=== PATIENT | female | born 1955 | race Caucasian/White ===

== ENCOUNTER 2019-03-24 01:00 | Inpatient (IN) ==
[2019-03-24] MEDS ORDERED: oxyCODONE HCL 5 MG TABLET PO PRN (01:30)
[2019-03-24] MEDS ORDERED: VANCOMYCIN 1,000 MG in 0.9 % SODIUM CHLORIDE 250 ML IV ONE (01:32)
[2019-03-24] MEDS ORDERED: VANCOMYCIN PER PHARMACY IV ONE (01:32)
[2019-03-24] MEDS ORDERED: SODIUM POLYSTYRENE SULFONATE 15 GM/60 ML SUSPENSION PO ONE (01:34)
[2019-03-24] MEDS ORDERED: ONDANSETRON 4 MG/2 ML VIAL IV PRN (01:37)
[2019-03-24] MEDS ORDERED: PROMETHAZINE 25 MG/ML VIAL IV PRN (01:37)
[2019-03-24] MEDS ORDERED: NITROGLYCERIN/D5W 25 MG/250 ML BOTTLE IV SCH (01:45)
--- NOTE | 2019-03-24 01:46 | Internal Med History&Physical ---
Medical - H&P: HPI Patient information: Note initiated : 03/24/19 at 1:41 am Service Date, if different from initiated Date: [] Patient: Shyann Ludwig a 64 y/o F admitted on 03/24/19 for respiratory distress. Chief Complaint: [] History of present illness: Ms. Ludwig is a 64 year old F with history of HIV AIDS, end-stage renal disease follows with Dr. Pineda, COPD presents to the emergency room today at [facility] for evaluation of shortness of breath. At the time of presentation she was in acute respiratory distress. The patient notes that she was at her baseline status until yesterday, in the afternoon she started to develop shortness of breath, she used her inhalers as well as Advair without any improvement since her breathing was getting worse she went to the emergency room for further evaluation. The patient has cough but unable to characterize sputum, denies any fever chills does have some chronic headache. She denies any chest pain does have shortness of breath denies any palpitations dizziness, does have some nausea feels like she is going to throw up, does have chronic abdominal pain intermittent, the patient denies any diarrhea, she still makes urine, she has generalized aches and pains all over body from fibromyalgia. The patient has history of HIV AIDS follows with Fuentes Reyes, last CD4 count October 2018 was 520, CD4 percentage was 45% She has a history of COPD and has required intubations in the past. The patient has history of end-stage renal disease and follows with Dr. Pineda. On presenting to the emergency room the patient was in respiratory distress, she was given bronchodilators magnesium and placed on BiPAP, it was noted that the patient chest x-ray showed she had pneumonia, her blood pressure was also very high to 220/140 as per the ED provider and the patient was started on nitroglycerin drip. The patient had hemodialysis day before yesterday and is scheduled for hemodialysis today. Her schedule is Wednesday. Labs show WBC count of 8.3 91.8% neutrophils, hemoglobin 9.1 sodium 126 potassium 5.3 bicarbonate 19 creatinine 5.2 BUN 53 glucose 119 troponin is 0.01, venous blood gas shows pH of 7.34 PCO2 45 Chest x-ray not available for viewing official report is not available Given the fact that [facility] does not have dialysis patient is being admitted to the ICU in this hospital given that she needs BiPAP therapy as well as is on a nitroglycerin drip. All systems: reviewed and no additional remarkable complaints except as stated (as per HPI rest negative) Medical - H&P: PMH Medical history: HIV COPD Hypertension Seizure disorder History of press syndrome Fibromyalgia and chronic pain syndrome Hyperlipidemia Surgical history: Gastric bypass Family history: reviewed and not pertinent Social history: Smokes electronic cigarette on a daily basis Smokes marijuana on a daily basis Denies any other drug use or substance use Medical - H&P: Meds Home Medications Medication Instructions Recorded Confirmed Type HYDROcodone/APAP 5/325MG [[place] 1 tab PO Q4HP PRN #8 tab 04/24/18 Rx 5-325Mg] Potassium Chloride [Kdur] 10 meq PO QAMCC #5 tab 04/24/18 Rx Promethazine [Phenergan] 12.5 mg PO Q4-6HP PRN #10 tab 04/24/18 Rx Allergies Allergy/AdvReac Type Severity Reaction Status Date / Time ketorolac [From Toradol] Allergy Intermediate Itching Verified 12/18/18 11:33 Penicillins Allergy Intermediate Itching Verified 12/18/18 11:33 Medical - H&P: Exam - Constitutional Exam: GENERAL: The patient is a well-developed, well-nourished in no apparent distress. Is alert and oriented x3. on bipap VITAL SIGNS: Reviewed and as noted elsewhere. HEENT: Head is normocephalic and atraumatic. Extraocular muscles are intact. Pupils are equal, round, and reactive to light. Nares appeared normal. Mouth appears any without lesions. Mucous membranes are dry. NECK: Normal to inspection, Supple, No lymphadenopathy or thyromegaly. LUNGS: Air entry equal on both sides, no wheezing, left basilar rales and left basilar rhonchi noted, No accessory muscles of respiration HEART: Regular rate and rhythm normal, S1 and S2 heard, no Gallop, S3 or Rub Noted, No Gross murmur heard. ABDOMEN: Soft, nontender, and nondistended. Positive bowel sounds. No hepatosplenomegaly was noted. EXTREMITIES: No cyanosis, clubbing, rash, lesions or edema. NEUROLOGIC: Cranial nerves II through XII are grossly intact. Motor and Sensory System Grossly Intact PSYCHIATRIC: Normal affect, Normal Mood. Appropriate Behavior. SKIN: No ulceration or wounds noted, No jaundice, No rash noted. Medical - H&P: A/P - Narrative A/P Narrative: A/P Acute hypoxic respiratory failure -Needs Non invasive ventilation, doing well -monitor, intubate if clinical condition worsens Acute exacerbation of COPD -IV steroids, duonebs and bipap -antibiotics/zithromax Pneumonia, HCAP -IV cefepime, vancomycin and zithromax -cultures sent in ER -send sputum culture and pcp culture, check mycoplasma, legionella, strep antigen Hypertensive Emergency, H/ O PRESS syndrome -IV NTG drip, goal bp < 180/105. -Resume home meds once verified -wean off the GGT HIV /AIDS -On HAART< Last CD4 was 520 -Consult ID physician -Resume home medications once verified ESRD -on HD< MWF, with Dr Pineda, Right IJ Tunnled cath -[facility] HD tomorrow, will consult Dr Pineda in AM Hyponatremia -due to infection? ESRd, should improve with HD Hyperkalemia -ESRD status -give kayexalate x 1, -HD in AM Chronic Pain -Resume home medications, once verified, seems to be on high dose of narcotis based on her reporting. Anemia -Hb 9.1, likely of chr disease DVT hep sq Diet Renal Full code Spent > 90 mins rendering critical care, management of non invasive vent, review blood gases, chart review and care coordination.
[2019-03-24] MEDS ORDERED: SODIUM POLYSTYRENE SULFONATE 15 GM/60 ML SUSPENSION ONE (02:13)
[2019-03-24] MEDS ORDERED: ONDANSETRON 4 MG/2 ML VIAL ONE (02:19)
[2019-03-24] MEDS ORDERED: HYDROmorphone 2 MG/ML VIAL ONE (02:19)
[2019-03-24] MEDS ORDERED: PANTOPRAZOLE 40 MG VIAL IV ONE (02:28)
[2019-03-24] MEDS: PANTOPRAZOLE 40 MG VIAL IV SCH ×2 (03:15→06:47)
[2019-03-24] MEDS ORDERED: NITROGLYCERIN/D5W 250 ML IV ONE (04:36)
[2019-03-24] MEDS: 0.9 % SODIUM CHLORIDE 250 ML IV SCH ×2 (04:38→14:20)
[2019-03-24] MEDS: IPRATROPIUM/ALBUTEROL 3 ML AMPUL.NEB NEB SCH ×6 (04:53→22:09)
[2019-03-24] MEDS: levETIRAcetam 500 MG in 0.9 % SODIUM CHLORIDE 100 ML IV SCH ×2 (05:12→11:14)
[2019-03-24] MEDS: 0.9 % SODIUM CHLORIDE 10 ML SYRINGE IV SCH ×3 (05:13→22:07)
[2019-03-24 05:37] LABS: Basophils # (Auto) 0 K/mcL (0.0-0.3); Basophils % (Auto) 0.1 % (0.0-2.0); Eosinophils # (Auto) 0 K/mcL (0.0-0.7); Eosinophils % (Auto) 0 % (0.0-7.0); Granulocytes % (Auto) 95.6 % (38.0-78.0); Hematocrit 25.6 % (36.0-48.0); Hemoglobin 8.5 g/dL (12.0-15.0); Lymphocytes # (Auto) 0.3 K/mcL (1.5-4.8); Lymphocytes % (Auto) 3.4 % (15.5-49.0); Mean Cell Volume 98.7 fL (80.0-100.0); Mean Corpuscular HGB Conc 33.2 g/dL (31.0-36.0); Mean Platelet Volume 7.4 fL (7.4-10.4); Monocytes # (Auto) 0.1 K/mcL (0.1-0.9); Monocytes % (Auto) 0.9 % (1.0-12.0); Platelet Count 169 K/mcL (140-440); RBC 2.59 M/mcL (4.00-5.20); Red Cell Distribution Width 14.5 % (11.5-14.5); WBC 8.3 K/mcL (4.5-11.0)
[2019-03-24] MEDS ORDERED: methylPREDNISolone SOD SUCC 125 MG/2 ML VIAL IV SCH (06:00)
[2019-03-24 06:08] LABS: ALT/SGPT 30 U/l (0-40); AST/SGOT 26 U/l (0-37); Albumin 4.3 gm/dL (3.2-5.2); Albumin/Globulin Ratio 1.6 (1.0-2.3); Alkaline Phosphatase 86 U/L (39-117); Bilirubin,Direct < 0.2 mg/dL (0.0-0.3); Bilirubin,Total 0.3 mg/dL (0.0-1.0); Blood Urea Nitrogen 57 mg/dl (8-23); Calcium 8.1 mg/dl (8.6-10.4); Carbon Dioxide 18 mmol/L (22-30); Chloride 87 mmol/L (96-108); Globulin 2.7 gm/dL (2.2-3.7); Glomerular Filtration Rate 8; Glucose 127 mg/dL (70-105); Lactate Dehydrogenase 304 U/L (94-250); Magnesium 2.6 mg/dL (1.6-2.5); Phosphorous 8.8 mg/dL (2.7-4.5); Sodium 129 mmol/L (133-145); Triglycerides 107 mg/dl (<150); Uric Acid 3.2 mg/dL (2.5-8.0)
--- NOTE | 2019-03-24 06:25 | XRay Report ---
CLINICAL INFORMATION: pneumonia, copd COMPARISON: 08/17/2018 and 12/10/2015 FINDINGS: Right IJ double-lumen catheter tip seen near the tricuspid valve plane in stable position. The heart is mildly enlarged but unchanged. Mediastinum is unremarkable. Pulmonary vessels are obscured by airspace disease but appear to be at least, moderately congested compared to the baseline study 12/10/2015. Large perihilar alveolar airspace disease is developed with moderate interstitial disease throughout the remaining lungs well likely represents edema. Small right pleural effusion noted IMPRESSION: Probable moderate/severe CHF. Pulmonary vasculature is obscured by airspace disease and difficult to assess. Please correlate with other clinical information supportive or refutive of CHF. The possibility of ARDS or aspiration should be entertained Interpreted and Authenticated by: Rene Padilla 03/24/19
[2019-03-24] MEDS ORDERED: VANCOMYCIN PER PHARMACY IV SCH (06:30)
[2019-03-24] MEDS ORDERED: hydrALAZINE 20 MG/ML VIAL IV ONE (08:23)
[2019-03-24] MEDS ORDERED: cloNIDine HCL 0.1 MG TABLET ONE (08:28)
[2019-03-24] MEDS ORDERED: hydrALAZINE 20 MG/ML VIAL ONE (08:28)
[2019-03-24] MEDS ORDERED: cloNIDine HCL 0.1 MG TABLET PO SCH ×2 (08:30)
[2019-03-24] MEDS ORDERED: amLODIPine 10 MG TABLET PO SCH (09:00)
[2019-03-24] MEDS ORDERED: IOPAMIDOL 100 ML BOTTLE IV ONE (09:42)
[2019-03-24] MEDS ORDERED: tiZANidine 4 MG TABLET PO PRN (10:47)
[2019-03-24] MEDS ORDERED: hydrOXYzine 25 MG TABLET PO PRN (10:47)
[2019-03-24] MEDS ORDERED: EMTRIVA PO SCH (11:00)
[2019-03-24] MEDS: HEPARIN 5,000 UNIT/ML VIAL SQ SCH ×2 (11:12→20:30)
[2019-03-24] MEDS: ACETAMINOPHEN 500 MG TABLET PO SCH ×3 (11:14→20:33)
[2019-03-24] MEDS ORDERED: NALOXONE HCL 0.4 MG/ML VIAL IV PRN (11:16)
[2019-03-24] MEDS: amLODIPine 10 MG TABLET PO SCH (11:40)
[2019-03-24] MEDS: AZITHROMYCIN 250 MG TABLET PO SCH (11:40)
[2019-03-24] MEDS: CARVEDILOL 12.5 MG TABLET PO SCH ×2 (11:40→20:33)
[2019-03-24] MEDS: DULoxetine 30 MG CAPSULE PO SCH (11:40)
[2019-03-24] MEDS: CALCIUM ACETATE 667 MG CAPSULE PO SCH ×2 (12:20→17:38)
[2019-03-24] MEDS ORDERED: CEFEPIME 1 GM VIAL IV SCH (14:00)
--- NOTE | 2019-03-24 14:07 | Cat Scan Report ---
CLINICAL INFORMATION: End-stage renal failure on dialysis. HIV positive. Abdominal pain and respiratory distress COMPARISON: None. TECHNIQUE: Enteric contrast was utilized. 80 cc of Isovue-300 were injected intravenously, and 50 seconds later 2.5 mm helical slices were obtained from the lung apices through the subtrochanteric regions of the femurs. Following reconstruction, 2.5 mm sagittal, coronal and axial reformatted images were processed and reviewed at multiple windows and levels. 7 mm MIP reconstructions were obtained through the lungs to optimize nodule detection.The exam was performed using radiation dose optimization techniques including, but not limited to, automated exposure control, adjustment of the mA and/or kV according to patient size and use of iterative reconstruction technique. FINDINGS: Pulmonary parenchymal windows demonstrate moderate consolidated infiltrate in the right perihilar region involving the posterior segment of the right upper lobe. There are multiple moderate groundglass infiltrates throughout both lungs with a central distribution. In addition, there is moderate thickening of the interlobular septa. The pulmonary arteries also appear mildly distended. Findings are most compatible with congestive heart failure or volume overload. Small bilateral pleural effusions appreciated. There is an 8 mm nodule in the lateral basilar segment of the the left lower lobe (image 73 Mediastinal windows show the heart is borderline enlarged with scattered calcific plaque in the coronary arteries. The thoracic aorta is unremarkable. There is no adenopathy in the mediastinal hilar or axillary region. The esophagus is normal. Abdominal images show the gallbladder is moderately enlarged and no evidence of wall thickening or stone. The liver is inhomogeneous, but shows no focal abnormality. Spleen, both adrenal glands and pancreas are normal. Both kidneys are markedly atrophic compatible with endstage renal disease. A 2.2 cm stone is present in the proximal left ureter and there are multiple smaller nonobstructing stones in the calyces of both kidneys ranging up to 8 mm. There is a small amount of ascites and modest amount of edema seen throughout the mesentery/retroperitoneal fat and the subcutaneous chest abdomen and pelvis. The stomach, small large bowel are symmetrically dilated compatible with mild ileus. There is a large amount of colonic stool. No free air or adenopathy. Urinary bladder is unremarkable. Bone windows show. There are no osseous abnormalities throughout the chest abdomen or pelvis IMPRESSION: 1. Moderate alveolar airspace disease centrally distributed with septal thickening, small bilateral pleural effusions and enlarged pulmonary arteries all supportive for congestive heart failure or volume overload. There is also edema throughout the mesentery, retroperitoneal and the subcutaneous region of the chest, abdomen and pelvis. 2. Marked bilateral renal atrophy compatible with end-stage renal failure. Multiple nonobstructing stones are seen within the calyces of both kidneys. A 2 cm stone in the proximal left ureter. No hydronephrosis. A normal amount of urine present within the urinary bladder would imply significant residual renal function. 3. Mild ileus with a large amount of stool within the colon 4. 8 mm nodule lateral right basilar segment of the left lower lobe. Consider one-year follow-up chest CT Interpreted and Authenticated by: Rene Padilla 03/24/19
--- NOTE | 2019-03-24 15:35 | Nephrology Progress Note ---
Subjective Patient information: Note initiated : 03/24/19 at 3:33 pm Service Date, if different from initiated Date: [] Patient: Shyann Ludwig 64 y/o F admitted on 03/24/19 for respiratory distress. Chief Complaint: [] Admitted with shortness of breath and possible pneumonia. Objective - Vital Signs Vital signs: Vital Signs Temp Pulse Resp BP Pulse Ox 03/24/19 15:20 98.5 F 79 142/94 03/24/19 15:05 83 119/99 03/24/19 14:50 78 125/111 03/24/19 14:35 78 124/102 03/24/19 14:20 79 137/92 03/24/19 14:17 18 122/103 03/24/19 14:05 77 122/103 03/24/19 14:02 17 126/100 03/24/19 13:50 78 126/100 03/24/19 13:46 18 143/87 03/24/19 13:44 18 138/92 03/24/19 13:40 75 138/92 03/24/19 13:33 17 146/97 03/24/19 13:29 17 140/101 03/24/19 13:16 17 174/92 03/24/19 13:10 77 174/92 03/24/19 13:02 16 162/93 03/24/19 12:56 76 162/93 03/24/19 12:49 20 146/93 03/24/19 12:46 18 132/99 03/24/19 12:44 78 146/93 03/24/19 12:35 17 120/93 03/24/19 12:33 25 H 159/130 03/24/19 12:28 78 120/93 03/24/19 12:22 16 158/97 03/24/19 12:17 18 139/85 03/24/19 12:15 80 158/97 03/24/19 12:10 20 130/117 03/24/19 12:07 81 130/117 03/24/19 12:02 37 H 03/24/19 12:01 99 F 18 160/129 03/24/19 11:57 19 130/56 03/24/19 11:50 99 F 104 H 130/56 03/24/19 11:17 22 147/132 03/24/19 11:01 20 135/98 03/24/19 11:00 79 122/103 03/24/19 10:50 17 03/24/19 10:48 22 117/99 03/24/19 10:42 82 16 03/24/19 10:32 18 102/91 03/24/19 10:16 17 153/101 03/24/19 09:55 17 141/99 03/24/19 08:56 24 H 03/24/19 08:47 18 171/161 03/24/19 08:32 17 175/158 03/24/19 08:24 22 170/139 03/24/19 08:16 20 154/136 03/24/19 08:02 87 27 H 180/119 91 03/24/19 08:00 94 03/24/19 07:46 75 18 166/144 89 L 03/24/19 07:31 77 22 169/139 98 03/24/19 07:16 88 25 H 175/133 97 03/24/19 07:05 73 18 03/24/19 07:02 76 18 147/117 91 03/24/19 06:46 13 159/142 03/24/19 06:33 14 180/141 03/24/19 06:16 181/127 03/24/19 06:00 152/115 03/24/19 05:47 23 H 172/113 03/24/19 05:35 19 145/111 03/24/19 05:34 18 03/24/19 05:15 14 167/139 03/24/19 05:01 16 151/117 03/24/19 04:48 81 25 H 95 03/24/19 04:46 19 136/63 03/24/19 04:30 20 179/133 03/24/19 04:15 69 188/113 99 03/24/19 04:03 73 25 H 183/134 94 03/24/19 04:00 15 191/145 03/24/19 03:46 198/164 03/24/19 03:36 20 188/152 03/24/19 03:31 14 225/111 03/24/19 03:15 24 H 210/103 03/24/19 03:01 65 16 198/97 91 03/24/19 02:56 17 201/113 03/24/19 02:31 21 203/107 03/24/19 02:16 20 193/108 03/24/19 02:00 18 189/110 03/24/19 01:46 14 169/96 03/24/19 01:30 72 20 188/97 86 L 03/24/19 01:25 85 24 H 178/105 88 L 03/24/19 01:00 97.3 F 71 19 171/116 100 Intake and Output 03/24/19 03/24/19 03/24/19 05:59 13:59 21:59 Intake Total 258 505 Balance 258 505 Intake: IV 18 105 NITROGLYCERIN/D5W 25 mg In 250 18 ml @ 5 MCG/MIN 3 mls/hr IV . Q24H MARGE Rx#:[id number] Keppra 500 mg In Sodium 105 Chloride 0.9% 100 ml @ 200 mls/ hr IV Q12 MARGE Rx#:[id number] Oral 240 400 Other: Meal Breakfast Percent of Meal Consumed Refused Weight 107 lb 1.6 oz Intake & Output: Intake & Output 03/24/19 03/24/19 03/24/19 05:59 13:59 21:59 Intake Total 258 505 Balance 258 505 Weight 107 lb 1.6 oz Intake: IV 18 105 NITROGLYCERIN/D5W 25 mg In 250 18 ml @ 5 MCG/MIN 3 mls/hr IV . Q24H MARGE Rx#:[id number] Keppra 500 mg In Sodium 105 Chloride 0.9% 100 ml @ 200 mls/ hr IV Q12 MARGE Rx#:[id number] Oral 240 400 Other: Meal Breakfast Percent of Meal Consumed Refused - General Appearance General appearance: cachectic EENT: ATNC Neck: JVD Respiratory: no kyphosis Cardiology: holosystolic murmur Gastrointestinal: hypoactive bowel sounds Neurologic: no focal deficit - Lab 03/24/19 03:07 03/24/19 03:07 Most recent lab results Calcium 8.1 mg/dl (8.6-10.4) L 03/24/19 03:07 Phosphorus 8.8 mg/dL (2.7-4.5) H* 03/24/19 03:07 Magnesium 2.6 mg/dL (1.6-2.5) H 03/24/19 03:07 Assessment and Plan (1) End stage renal disease on dialysis Status: Acute - Narrative A/P Narrative: Admitted with possible pneumonia and volume overload. Will dialyse and remove 4 kilos of fluid today. Will try again tomorrow and try another 3000ml.
[2019-03-24] MEDS: oxyCODONE HCL 5 MG TABLET PO PRN ×2 (16:02→20:35)
[2019-03-24] MEDS: cloNIDine HCL 0.1 MG TABLET PO SCH ×2 (16:02→20:32)
[2019-03-24 17:02] LABS: Vancomycin,Random 8.3 ug/mL
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
[2019-03-24] MEDS: HYDROmorphone 2 MG/ML VIAL IV PRN (18:30)
[2019-03-24] MEDS ORDERED: hydrALAZINE 20 MG/ML VIAL IV PRN (19:33)
[2019-03-24] MEDS: levETIRAcetam 500 MG TABLET PO SCH (20:30)
[2019-03-24] MEDS ORDERED: AMITRIPTYLINE 25 MG TABLET PO SCH (21:00)
[2019-03-25] MEDS: IPRATROPIUM/ALBUTEROL 3 ML AMPUL.NEB NEB SCH ×6 (02:44→22:45)
[2019-03-25] MEDS: oxyCODONE HCL 5 MG TABLET PO PRN ×3 (04:19→20:46)
[2019-03-25] MEDS: 0.9 % SODIUM CHLORIDE 10 ML SYRINGE IV SCH ×3 (05:28→23:10)
[2019-03-25 06:18] LABS: Basophils # (Auto) 0 K/mcL (0.0-0.3); Basophils % (Auto) 0.2 % (0.0-2.0); Eosinophils # (Auto) 0 K/mcL (0.0-0.7); Eosinophils % (Auto) 0 % (0.0-7.0); Granulocytes % (Auto) 73.6 % (38.0-78.0); Hematocrit 21.2 % (36.0-48.0); Hemoglobin 6.9 g/dL (12.0-15.0); Lymphocytes # (Auto) 0.9 K/mcL (1.5-4.8); Lymphocytes % (Auto) 18.6 % (15.5-49.0); Mean Cell Volume 98.5 fL (80.0-100.0); Mean Corpuscular HGB Conc 32.7 g/dL (31.0-36.0); Mean Platelet Volume 7.2 fL (7.4-10.4); Monocytes # (Auto) 0.4 K/mcL (0.1-0.9); Monocytes % (Auto) 7.6 % (1.0-12.0); Platelet Count 125 K/mcL (140-440); RBC 2.15 M/mcL (4.00-5.20); WBC 4.7 K/mcL (4.5-11.0)
[2019-03-25 06:21] LABS: ALT/SGPT 21 U/l (0-40); AST/SGOT 19 U/l (0-37); Albumin 3.8 gm/dL (3.2-5.2); Albumin/Globulin Ratio 1.5 (1.0-2.3); Alkaline Phosphatase 66 U/L (39-117); Bilirubin,Direct < 0.2 mg/dL (0.0-0.3); Bilirubin,Total 0.3 mg/dL (0.0-1.0); Blood Urea Nitrogen 24 mg/dl (8-23); Calcium 8.5 mg/dl (8.6-10.4); Carbon Dioxide 29 mmol/L (22-30); Chloride 92 mmol/L (96-108); Globulin 2.6 gm/dL (2.2-3.7); Glomerular Filtration Rate 15; Glucose 93 mg/dL (70-105); Lactate Dehydrogenase 244 U/L (94-250); Magnesium 2.2 mg/dL (1.6-2.5); Phosphorous 5.1 mg/dL (2.7-4.5); Potassium 4.6 mmol/L (3.3-5.1); Sodium 134 mmol/L (133-145); Triglycerides 120 mg/dl (<150); Uric Acid 1.9 mg/dL (2.5-8.0)
[2019-03-25] MEDS: HYDROmorphone 2 MG/ML VIAL IV PRN ×3 (07:17→23:06)
[2019-03-25] MEDS: CALCIUM ACETATE 667 MG CAPSULE PO SCH ×4 (07:18→17:13)
[2019-03-25] MEDS: PANTOPRAZOLE 40 MG VIAL IV SCH (07:18)
[2019-03-25] MEDS ORDERED: predniSONE 20 MG TABLET PO SCH (08:00)
[2019-03-25] MEDS ORDERED: 0.9 % SODIUM CHLORIDE 250 ML IV SCH ×2 (09:15→12:58)
[2019-03-25] MEDS: ACETAMINOPHEN 500 MG TABLET PO SCH ×3 (10:41→20:35)
[2019-03-25] MEDS: HEPARIN 5,000 UNIT/ML VIAL SQ SCH ×2 (10:41→20:33)
[2019-03-25] MEDS: levETIRAcetam 500 MG TABLET PO SCH ×3 (10:41→23:10)
[2019-03-25] MEDS: amLODIPine 10 MG TABLET PO SCH (10:42)
[2019-03-25] MEDS: cloNIDine HCL 0.1 MG TABLET PO SCH ×3 (10:42→20:33)
[2019-03-25] MEDS: CARVEDILOL 12.5 MG TABLET PO SCH ×2 (10:42→20:34)
[2019-03-25] MEDS: DULoxetine 30 MG CAPSULE PO SCH (10:42)
--- NOTE | 2019-03-25 11:34 | Internal Med Progress Note ---
Medical - PN: Subj Patient information: Note initiated : 03/25/19 at 11:32 am Service Date, if different from initiated Date: [] Patient: Shyann Ludwig a 64 y/o F admitted on 03/24/19 for respiratory distress. Chief Complaint: [] Interval history: Ms. Ludwig is a 64 year old F with history of HIV AIDS, end-stage renal disease follows with Dr. Pineda, COPD presents to the emergency room today at [facility] for evaluation of shortness of breath. At the time of presentation she was in acute respiratory distress. The patient notes that she was at her baseline status until yesterday, in the afternoon she started to develop shortness of breath, she used her inhalers as well as Advair without any improvement since her breathing was getting worse she went to the emergency room for further evaluation. The patient has cough but unable to characterize sputum, denies any fever chills does have some chronic headache. She denies any chest pain does have shortness of breath denies any palpitations dizziness, does have some nausea feels like she is going to throw up, does have chronic abdominal pain intermittent, the patient denies any diarrhea, she still makes urine, she has generalized aches and pains all over body from fibromyalgia. The patient has history of HIV AIDS follows with [facility], last CD4 count October 2018 was 520, CD4 percentage was 45% She has a history of COPD and has required intubations in the past. The patient has history of end-stage renal disease and follows with Dr. Pineda. On presenting to the emergency room the patient was in respiratory distress, she was given bronchodilators magnesium and placed on BiPAP, it was noted that the patient chest x-ray showed she had pneumonia, her blood pressure was also very high to 220/140 as per the ED provider and the patient was started on nitroglycerin drip. The patient had hemodialysis day before yesterday and is scheduled for hemodialysis today. Her schedule is Wednesday. Labs show WBC count of 8.3 91.8% neutrophils, hemoglobin 9.1 sodium 126 potassium 5.3 bicarbonate 19 creatinine 5.2 BUN 53 glucose 119 troponin is 0.01, venous blood gas shows pH of 7.34 PCO2 45 Chest x-ray not available for viewing official report is not available Given the fact that [facility] does not have dialysis patient is being admitted to the ICU in this hospital given that she needs BiPAP therapy as well as is on a nitroglycerin drip. 03/25 Patient seen examined, no acute issues, tolerating po diet well, still feels quite weak had HD again this AM Hb dropped to 6.9, no overt signs of bleed, iron studies reviewed, elevated ferritin, normal tsat. transfuse 2 units today, and monitor xfer to tele status. Ptis off NTG drip and bp is well controlled with po meds Pertinent ROS: Denies headache, dizziness Denies chest pain, palpitations improved cough and shortness of breath, still very fatigued. Denies abdominal pain, nausea or vomiting. - Constitutional Vitals: Vital Signs Temp Pulse Resp BP Pulse Ox 98.1 F 74 15 114/67 97 03/25/19 09:57 03/25/19 11:28 03/25/19 11:28 03/25/19 11:00 03/25/19 09:01 Period Temp Pulse Resp BP Sys/Hanson Pulse Ox Last 24 Hr 97.6 F-99.7 F 55-116 9-37 93-174/56-130 91-100 Intake and Output 03/24/19 03/25/19 03/25/19 21:59 05:59 13:59 Intake Total 560 240 125 Output Total 4150 2900 Balance -3590 240 -2775 Weight 98 lb 8 oz Intake & Output: Intake & Output 03/24/19 03/25/19 03/25/19 21:59 05:59 13:59 Intake Total 560 240 125 Output Total 4150 2900 Balance -3590 240 -2775 Weight 98 lb 8 oz Intake: IV 5 Sodium Chloride 0.9% 250 ml @ 5 20 mls/hr IV .[id number] [facility] Rx#: [id number] Oral 560 240 120 Output: Void Amount 150 Hemodialysis UF 4000 2900 Other: Meal Dinner Percent of Meal Consumed 50% Feeding Ability Assist with Tray Set Up Urine Color Pale Exam: Constitutional; Afebrile, cooperative, alert, not in distress. Respiratory system: Air Entry equal on both sides, No crackles or wheezing, no rhonchi. CVS- Rate rhythm regular, S1,S2 heard, no gallop, no rub. Abdomen- Soft nontender abdomen, no organomegaly, no tenderness, no guarding or rigidity, [employer]- AOOx3, moving all extremities, no gross focal deficit noted. Medical - PN: Obj Da - Labs CBC & Chem 7: 03/25/19 04:05 03/25/19 04:05 Labs: Abnormal Lab Results 03/25/19 03/25/19 03/25/19 09:20 04:05 04:05 RBC 2.15 L Hgb 6.9 L* Hct 21.2 L RDW 15.0 H Plt Count 125 L MPV 7.2 L Gran % Lymph % (Auto) Door % (Auto) Lymph # (Auto) 0.9 L Sodium Chloride 92 L Carbon Dioxide Anion Gap BUN 24 H Creatinine 3.1 H Glucose Uric Acid 1.9 L Calcium 8.5 L Phosphorus 5.1 H Magnesium TIBC 215 L Ferritin 1408.0 H Lactate Dehydrogenase 03/24/19 03/24/19 03:07 03:07 RBC 2.59 L Hgb 8.5 L Hct 25.6 L RDW Plt Count MPV Gran % 95.6 H Lymph % (Auto) 3.4 L Door % (Auto) 0.9 L Lymph # (Auto) 0.3 L Sodium 129 L Chloride 87 L Carbon Dioxide 18 L Anion Gap 24.0 H BUN 57 H Creatinine 5.3 H* Glucose 127 H Uric Acid Calcium 8.1 L Phosphorus 8.8 H* Magnesium 2.6 H TIBC Ferritin Lactate Dehydrogenase 304 H Meds: Medications Acetaminophen (Tylenol) 1,000 mg PO TID [facility] Last Admin: 03/25/19 10:41 Dose: 1,000 mg Documented by: Albuterol/Ipratropium (Duoneb) 3 ml NEB Q4HRT [facility] Last Admin: 03/25/19 11:19 Dose: 3 ml Documented by: Amitriptyline HCl (Elavil) 50 mg PO HS [facility] Last Admin: 03/24/19 20:33 Dose: 50 mg Documented by: Amlodipine Besylate (Norvasc) 10 mg PO DAILY [facility] Last Admin: 03/25/19 10:42 Dose: 10 mg Documented by: Calcium Acetate (Phoslo) 2,001 mg PO TIDCC [facility] Last Admin: 03/25/19 07:18 Dose: 2,001 mg Documented by: Carvedilol (Coreg) 25 mg PO BID [facility] Last Admin: 03/25/19 10:42 Dose: 25 mg Documented by: Cefepime HCl (Maxipime) 1 gm IV Q24H [facility]; Protocol Last Admin: 03/24/19 16:01 Dose: 1 gm Documented by: Clonidine HCl (Catapres) 0.2 mg PO TID [facility] Last Admin: 03/25/19 10:42 Dose: 0.2 mg Documented by: Duloxetine HCl (Cymbalta) 60 mg PO DAILY [facility] Last Admin: 03/25/19 10:42 Dose: 60 mg Documented by: Heparin Sodium (Porcine) (Heparin) 5,000 unit SQ Q12 [facility] Last Admin: 03/25/19 10:41 Dose: 5,000 unit Documented by: Hydralazine HCl (Apresoline) 10 mg IV Q4-6HP PRN PRN Reason: Hypertension Hydromorphone HCl (Dilaudid) 0.5 - 1 mg IV Q2HP PRN PRN Reason: PAIN LEVEL > 6 Last Admin: 03/25/19 07:17 Dose: 0.5 mg Documented by: Hydroxyzine HCl (Atarax) 25 mg PO Q8HP PRN PRN Reason: Opioid Reversal Sodium Chloride (Sodium Chloride 0.9%) 250 mls @ 20 mls/hr IV .[id number] [facility] Stop: 03/25/19 21:44 Last Infusion: 03/25/19 11:31 Dose: 0 mls/hr Documented by: Levetiracetam (Keppra) 750 mg PO BID [facility] Last Admin: 03/25/19 10:41 Dose: 750 mg Documented by: Naloxone HCl (Narcan) 0.1 mg IV Q2MIN PRN PRN Reason: Opiate Reversal Ondansetron HCl (Zofran) 4 mg IV Q4HP PRN PRN Reason: Nausea And Vomiting Oxycodone HCl (Roxicodone) 25 mg PO TIDP PRN PRN Reason: Pain Last Admin: 03/25/19 04:19 Dose: 25 mg Documented by: Pantoprazole Sodium (Protonix) 40 mg IV QAMAC [facility] Last Admin: 03/25/19 07:18 Dose: 40 mg Documented by: Efavirenz 600 Mg 1 dose PO DAILY [facility] Last Admin: 03/25/19 10:43 Dose: Not Given Documented by: Emtriva 200 Mg (Capsule) 1 dose PO Q4D [facility] Last Admin: 03/24/19 11:40 Dose: Not Given Documented by: Prednisone (Prednisone) 40 mg PO [facility] Last Admin: 03/25/19 07:18 Dose: 40 mg Documented by: Promethazine HCl (Phenergan) 12.5 mg IV Q4HP PRN PRN Reason: Nausea And Vomiting Sodium Chloride (Saline Flush) 10 ml IV Q8 [facility] Last Admin: 03/25/19 05:28 Dose: 10 ml Documented by: Tizanidine HCl (Zanaflex) 4 mg PO Q6HP PRN PRN Reason: MUSCLE SPASMS Last Admin: 03/24/19 20:33 Dose: 4 mg Documented by: Medical - PN: A/P - Time Spent With Patient Total time spent is greater than 50% in coordination of care (as documented) at patient's floor/unit and/or counseling patient: - Narrative A/P Narrative: A/P Acute hypoxic respiratory failure -off BIPAP doing well, on 1 L oxygen via NC, wean off as tolerated. Acute exacerbation of COPD - wheezing resolved, swtich to oral prednisone. -antibiotics/zithromax Pneumonia, HCAP - ID consult appreciated, will d/c vanco and zithromax as per their recs -on cefepime, continue same, Hypertensive Emergency, H/ O PRESS syndrome -resolved, pt responding well to home medication regime and fluid removal. HIV /AIDS -On HAART< Last CD4 was 520 -appreciate ID consult, to resume home meds as soon as possible ESRD -on HD< MWF, with Dr Pineda, Right IJ Tunnled cath -appreciate input, HD x 2 now, monitor. Hyponatremia -resolved. Hyperkalemia -ESRD status -resolved Chronic Pain -Resume home medications, Anemia -Hb dropped to 6.9, no overt bleed obvious, anemia of chr disease with infectino? -transfuse 2 units, await b12, folate levels. DVT hep sq Diet Renal Full code xfer to tele status. Medical - PN: Qual - VTE Deep Vein Thrombosis/Pulmonary Embolism Present on Admission: No
[2019-03-25 11:57] LABS: Folate 15.8 ng/mL (4.2-19.9)
[2019-03-25 11:58] LABS: Vitamin B12 433.4 pg/ml (232-1245)
[2019-03-25] MEDS ORDERED: hydrALAZINE 20 MG/ML VIAL IV PRN (12:58)
[2019-03-25] MEDS ORDERED: tiZANidine 4 MG TABLET PO PRN (12:58)
[2019-03-25] MEDS ORDERED: hydrOXYzine 25 MG TABLET PO PRN (12:58)
[2019-03-25] MEDS ORDERED: ONDANSETRON 4 MG/2 ML VIAL IV PRN (12:58)
[2019-03-25] MEDS ORDERED: NALOXONE HCL 0.4 MG/ML VIAL IV PRN (12:58)
[2019-03-25] MEDS ORDERED: PROMETHAZINE 25 MG/ML VIAL IV PRN (12:58)
[2019-03-25] MEDS: AZITHROMYCIN 250 MG TABLET PO SCH (13:35)
--- NOTE | 2019-03-25 14:41 | Infectious Disease Prog Note ---
Subjective Patient information: Note initiated : 03/25/19 at 2:37 pm Service Date, if different from initiated Date: [] Patient: Shyann Ludwig 64 y/o F admitted on 03/24/19 for respiratory distress. Chief Complaint: [] Interval history: Pt doing better than yesterday. Is off NTG drip and supplemental O2. BP under control. Afebrile. Denied any n/v/d. Mentions that she will take her HIV meds today as someone from the hospital will go to her house and bring back the meds. Discussed penicillin allergy history, allergy testing and how to contact our clinic if she is interested. Pt voiced understanding. Objective Objective Narrative: alert , awake, oriented x 3 chest has VBS b/l with occasional crackles at bases s1 s2 normal, no m/r/g chest wall TDC without any tenderness - Vital Signs Vital signs: Vital Signs Temp Pulse Resp BP Pulse Ox 03/25/19 14:01 37.0 C 14 120/74 93 03/25/19 13:30 68 19 140/103 97 03/25/19 13:00 61 12 129/79 92 03/25/19 12:30 69 21 133/74 94 03/25/19 12:00 36.9 C 70 12 147/87 91 03/25/19 11:30 76 17 164/81 100 03/25/19 11:28 74 15 03/25/19 11:26 71 15 137/83 100 03/25/19 11:15 37.2 C 70 18 108/66 92 03/25/19 11:00 16 114/67 03/25/19 10:01 15 123/82 03/25/19 09:57 36.7 C 57 L 9 L 130/74 03/25/19 09:47 14 117/77 03/25/19 09:42 56 L 117/77 03/25/19 09:31 14 134/94 03/25/19 09:26 59 L 134/94 03/25/19 09:16 13 121/76 03/25/19 09:13 58 L 121/76 03/25/19 09:01 116 H 13 130/82 97 03/25/19 09:00 57 L 130/82 03/25/19 08:46 55 L 11 L 129/80 95 06/08/19 08:44 56 L 129/80 06/08/19 08:32 60 12 128/67 95 03/25/19 08:29 55 L 128/67 03/25/19 08:17 60 15 120/64 95 03/25/19 08:15 60 120/64 03/25/19 08:09 36.7 C 58 L 122/77 03/25/19 08:05 60 14 122/77 100 03/25/19 08:02 17 100/78 03/25/19 08:01 36.4 C 14 122/77 98 03/25/19 07:35 70 14 03/25/19 07:29 94 03/25/19 07:20 98 03/25/19 07:01 13 103/66 03/25/19 06:01 66 12 113/72 97 03/25/19 05:01 75 15 137/103 99 03/25/19 04:01 36.9 C 72 14 141/82 96 03/25/19 03:01 59 L 10 L 109/66 97 03/25/19 02:01 12 114/64 03/25/19 02:00 96 03/25/19 01:01 11 L 101/64 03/25/19 00:00 36.7 C 65 10 L 98/64 98 03/24/19 23:48 61 11 L 95/72 96 03/24/19 23:46 36.9 C 66 11 L 95/72 96 03/24/19 23:00 60 12 94/60 96 03/24/19 22:55 61 10 L 93/65 95 03/24/19 22:52 36.7 C 62 12 93/65 95 03/24/19 22:12 60 15 03/24/19 22:01 11 L 98/64 03/24/19 21:59 36.9 C 14 98/64 94 03/24/19 21:05 16 149/98 03/24/19 21:02 37.2 C 22 149/98 96 03/24/19 20:07 79 91 03/24/19 20:06 37.6 C H 83 23 H 133/102 98 03/24/19 20:04 37.6 C H 79 11 L 133/102 95 03/24/19 20:00 86 19 133/102 98 03/24/19 19:00 21 133/88 03/24/19 18:57 94 03/24/19 18:55 37.4 C H 13 133/88 03/24/19 18:04 85 11 L 95 03/24/19 18:03 73 10 L 03/24/19 18:00 22 150/109 03/24/19 17:07 86 14 94 03/24/19 17:00 17 148/99 95 03/24/19 16:30 88 23 H 169/98 94 03/24/19 16:27 91 H 19 154/100 95 03/24/19 16:02 23 H 158/94 03/24/19 15:56 21 116/91 03/24/19 15:53 16 137/92 03/24/19 15:51 19 145/126 03/24/19 15:48 79 116/91 03/24/19 15:37 17 99 03/24/19 15:35 80 137/92 03/24/19 15:33 36.9 C 16 142/94 99 03/24/19 15:20 36.9 C 79 142/94 03/24/19 15:17 24 H 119/99 03/24/19 15:05 83 119/99 03/24/19 15:02 33 H 125/111 03/24/19 14:50 78 125/111 03/24/19 14:46 26 H 124/102 Intake and Output 03/25/19 03/25/19 03/25/19 05:59 13:59 21:59 Intake Total 240 245 590 Output Total 2900 Balance 240 -2655 590 Intake: IV 5 Sodium Chloride 0.9% 250 ml @ 5 20 mls/hr IV .[id number] [facility] Rx#: [id number] Oral 240 240 240 Blood Product 350 Output: Hemodialysis UF 2900 Other: Meal Breakfast Lunch Percent of Meal Consumed 100% 75% Feeding Ability Independent Weight 44.679 kg Patient Weight 03/26/19 05:59 Weight 44.679 kg Intake & Output: Intake & Output 03/25/19 03/25/19 03/25/19 05:59 13:59 21:59 Intake Total 240 245 590 Output Total 2900 Balance 240 -2655 590 Weight 44.679 kg Intake: IV 5 Sodium Chloride 0.9% 250 ml @ 5 20 mls/hr IV .[id number] [facility] Rx#: [id number] Oral 240 240 240 Blood Product 350 Output: Hemodialysis UF 2900 Other: Meal Breakfast Lunch Percent of Meal Consumed 100% 75% Feeding Ability Independent - Lab 03/25/19 04:05 03/25/19 04:05 Most recent lab results Calcium 8.5 mg/dl (8.6-10.4) L 03/25/19 04:05 Phosphorus 5.1 mg/dL (2.7-4.5) H 03/25/19 04:05 Magnesium 2.2 mg/dL (1.6-2.5) 03/25/19 04:05 Microbiology 03/24/19 08:36 Sputum - Induced Pneumocystis Carinii Smear - Final 03/24/19 08:57 Nasopharynx Respiratory Panel (PCR) - Final 03/24/19 08:57 Nasopharynx Respiratory Virus Panel (PCR) - Final 03/24/19 08:56 Sputum - Expectorated Gram Stain - Final 03/24/19 08:56 Sputum - Expectorated Sputum Culture - Final 03/24/19 01:11 Nose MRSA (PCR) - Final Medications Active Medications: Acetaminophen (Tylenol) 1,000 mg PO TID [facility] Albuterol/Ipratropium (Duoneb) 3 ml NEB Q4HRT [facility] Amitriptyline HCl (Elavil) 50 mg PO HS [facility] Amlodipine Besylate (Norvasc) 10 mg PO DAILY [facility] Calcium Acetate (Phoslo) 2,001 mg PO TIDCC [facility] Last Admin: 03/25/19 13:23 Dose: 2,001 mg Documented by: LSTRATTINA Comments: no noon dose time slot due to transfer orders Carvedilol (Coreg) 25 mg PO BID [facility] Clonidine HCl (Catapres) 0.2 mg PO TID [facility] Duloxetine HCl (Cymbalta) 60 mg PO DAILY [facility] Heparin Sodium (Porcine) (Heparin) 5,000 unit SQ Q12 [facility] Hydralazine HCl (Apresoline) 10 mg IV Q4-6HP PRN PRN Reason: Hypertension Hydromorphone HCl (Dilaudid) 0.5 - 1 mg IV Q2HP PRN PRN Reason: PAIN LEVEL > 6 Hydroxyzine HCl (Atarax) 25 mg PO Q8HP PRN PRN Reason: Opioid Reversal Sodium Chloride (Sodium Chloride 0.9%) 250 mls @ 20 mls/hr IV .[id number] [facility] Stop: 03/25/19 21:44 Levetiracetam (Keppra) 750 mg PO BID [facility] Naloxone HCl (Narcan) 0.1 mg IV Q2MIN PRN PRN Reason: Opiate Reversal Ondansetron HCl (Zofran) 4 mg IV Q4HP PRN PRN Reason: Nausea And Vomiting Oxycodone HCl (Roxicodone) 25 mg PO TIDP PRN PRN Reason: Pain Last Admin: 03/25/19 13:25 Dose: 25 mg Documented by: RONI Pantoprazole Sodium (Protonix) 40 mg IV QAMAC [facility] Efavirenz 600 Mg 1 dose PO DAILY [facility] Emtriva 200 Mg (Capsule) 1 dose PO Q4D@0900 [facility] Abacavir 300 Mg Tab 1 dose PO BID [facility] Prednisone (Prednisone) 40 mg PO QAMCC [facility] Promethazine HCl (Phenergan) 12.5 mg IV Q4HP PRN PRN Reason: Nausea And Vomiting Sodium Chloride (Saline Flush) 10 ml IV Q8 [facility] Tizanidine HCl (Zanaflex) 4 mg PO Q6HP PRN PRN Reason: MUSCLE SPASMS Assessment and Plan - Narrative A/P Narrative: A: 1. Hypertensive emergency: - Has CHF with pulmonary edema - improved. Off NTG drip. 2. Low concerns for pneumonia: - normal WBCs, lack of fever, presence of orthopnea, alternative explanation for dyspnea, sudden onset of symptoms at time of presentation, bloo - negative w/u so far for infections: Mycoplasma IgM, pneumococcal antigen, sputum Cx, resp viral panel, blood Cx - even though pt has HIV, her last CD4 of 520, is way above the cut-off of 200 below which risk of opportunistic infections go up 3. HIV: on Sustiva, Emtriva and Abacavir per her HIV provider - missed her dose yesterday 4. ESRD on HD through right chest wall TDC - no concerns for catheeter infection on exam 5. Hx of penicillin allergy as a child: - Itching, plus some other reaction (that she doesnot remember). Has not taken pencillin since then Recommendations: - Stop IV Cefepime for reasons mentioned above - Pt received her HIV meds this noon. Counseled to take them as she had been taking per her HIV provider - fluid overload, HTN and CHF management per primary team - Given pt's Hx of penicillin allergy, she was counselled to consider penicillin allergy testing. She was provided with a flyer from [employer] about it. She will go through and contact ID clinic after discharge will sign off. Please call back for any questions Tim Hyman MD Infectious diseases
[2019-03-25] MEDS ORDERED: BISACODYL 10 MG SUPP.RECT PR ONE (16:57)
[2019-03-25] MEDS ORDERED: AMITRIPTYLINE 25 MG TABLET PO SCH (21:00)
[2019-03-26] MEDS: HYDROmorphone 2 MG/ML VIAL IV PRN ×3 (01:49→09:05)
[2019-03-26] MEDS: IPRATROPIUM/ALBUTEROL 3 ML AMPUL.NEB NEB SCH ×3 (03:31→11:10)
[2019-03-26 05:12] LABS: Basophils # (Auto) 0 K/mcL (0.0-0.3); Basophils % (Auto) 0.1 % (0.0-2.0); Eosinophils # (Auto) 0 K/mcL (0.0-0.7); Eosinophils % (Auto) 0 % (0.0-7.0); Granulocytes % (Auto) 77.5 % (38.0-78.0); Hematocrit 29.8 % (36.0-48.0); Hemoglobin 9.9 g/dL (12.0-15.0); Lymphocytes # (Auto) 0.8 K/mcL (1.5-4.8); Lymphocytes % (Auto) 14.3 % (15.5-49.0); Mean Cell Volume 94.5 fL (80.0-100.0); Mean Corpuscular HGB Conc 33.2 g/dL (31.0-36.0); Mean Platelet Volume 7.4 fL (7.4-10.4); Monocytes # (Auto) 0.5 K/mcL (0.1-0.9); Monocytes % (Auto) 8.1 % (1.0-12.0); Platelet Count 133 K/mcL (140-440); RBC 3.15 M/mcL (4.00-5.20); Red Cell Distribution Width 16.9 % (11.5-14.5); WBC 5.6 K/mcL (4.5-11.0)
[2019-03-26 05:34] LABS: ALT/SGPT 21 U/l (0-40); AST/SGOT 16 U/l (0-37); Albumin 4.2 gm/dL (3.2-5.2); Albumin/Globulin Ratio 1.5 (1.0-2.3); Alkaline Phosphatase 71 U/L (39-117); Bilirubin,Direct < 0.2 mg/dL (0.0-0.3); Bilirubin,Total 0.3 mg/dL (0.0-1.0); Blood Urea Nitrogen 50 mg/dl (8-23); Calcium 8.3 mg/dl (8.6-10.4); Carbon Dioxide 23 mmol/L (22-30); Chloride 87 mmol/L (96-108); Globulin 2.8 gm/dL (2.2-3.7); Glomerular Filtration Rate 9; Glucose 119 mg/dL (70-105); Lactate Dehydrogenase 252 U/L (94-250); Magnesium 2.1 mg/dL (1.6-2.5); Phosphorous 6.5 mg/dL (2.7-4.5); Potassium 4.4 mmol/L (3.3-5.1); Sodium 129 mmol/L (133-145); Triglycerides 120 mg/dl (<150)
[2019-03-26] MEDS: 0.9 % SODIUM CHLORIDE 10 ML SYRINGE IV SCH ×2 (05:35→06:50)
[2019-03-26] MEDS: oxyCODONE HCL 5 MG TABLET PO PRN (06:51)
[2019-03-26] MEDS ORDERED: PANTOPRAZOLE 40 MG VIAL IV SCH (07:30)
[2019-03-26] MEDS: CALCIUM ACETATE 667 MG CAPSULE PO SCH (07:56)
[2019-03-26] MEDS ORDERED: predniSONE 20 MG TABLET PO SCH (08:00)
[2019-03-26] MEDS ORDERED: amLODIPine 10 MG TABLET PO SCH (09:00)
[2019-03-26] MEDS ORDERED: DULoxetine 30 MG CAPSULE PO SCH (09:00)
[2019-03-26] MEDS: HEPARIN 5,000 UNIT/ML VIAL SQ SCH (09:05)
[2019-03-26] MEDS: cloNIDine HCL 0.1 MG TABLET PO SCH (09:06)
[2019-03-26] MEDS: ACETAMINOPHEN 500 MG TABLET PO SCH (09:06)
[2019-03-26] MEDS: levETIRAcetam 500 MG TABLET PO SCH (09:06)
[2019-03-26] MEDS: CARVEDILOL 12.5 MG TABLET PO SCH (09:07)
--- NOTE | 2019-03-26 10:22 | Discharge Summary ---
Medical - DS: Prov Patient information: Note initiated : 03/26/19 at 10:18 am Service Date, if different from initiated Date: [] Patient: Shyann Ludwig 64 y/o F admitted on 03/24/19 for respiratory distress. Chief Complaint: [] Date of admission: 03/24/19 01:00 Discharge date: 03/26/19 Primary care physician: Giancarlo Pineda Consults: 03/24/19 01:34 Consult to Infectious Disease [CONS] Routine Comment: Consulting Provider: Tim Hyman Reason For Exam: Physician to Consult Consult to Physician [CONS] Routine Comment: Consulting Provider: Giancarlo Pineda Reason For Exam: Physician to Consult Discharging clinician: Iraida Chase Medical - DS: Meds - Discharge Medications Active and Home Medications: Home Medications Promethazine [Phenergan] 12.5 mg PO Q4-6HP PRN #10 tab 04/24/18 [Rx Last Taken Unknown] Amitriptyline 50 mg PO QHS 03/24/19 [History Confirmed 03/24/19 Last Taken Unknown] Carvedilol [Coreg] 25 mg PO BID 03/24/19 [History Confirmed 03/24/19 Last Taken Unknown] DULoxetine 60 mg PO DAILY 03/24/19 [History Confirmed 03/24/19 Last Taken Unknown] Efavirenz 600 mg PO DAILY 03/24/19 [History Confirmed 03/24/19 Last Taken Unknown] Emtriva 200 mg PO Q4D 03/24/19 [History Confirmed 03/24/19 Last Taken Unknown] Levetiracetam 750 mg PO BID 03/24/19 [History Confirmed 03/24/19 Last Taken Unknown] Narcan 4 mg INTRANASAL PRN PRN 03/24/19 [History Confirmed 03/24/19 Last Taken Unknown] Phoslo 3 cap PO TID 03/24/19 [History Confirmed 03/24/19 Last Taken Unknown] Promethazine HCl 12.5 mg PO DAILY PRN 03/24/19 [History Confirmed 03/24/19 Last Taken Unknown] amLODIPine 10 mg PO DAILY 03/24/19 [History Confirmed 03/24/19 Last Taken Unknown] cloNIDine HCL [Catapres] 0.2 mg PO TID 03/24/19 [History Confirmed 03/24/19 Last Taken Unknown] hydrOXYzine HCL [Hydroxyzine HCl] 25 mg PO Q8HP PRN 03/24/19 [History Confirmed 03/24/19 Last Taken Unknown] oxyCODONE HCL [Oxycodone HCl] 5 mg PO TID 03/24/19 [History Confirmed 03/24/19 Last Taken Unknown] oxyCODONE HCL [Oxycodone HCl] 20 mg PO TID 03/24/19 [History Last Taken Unknown] tiZANidine 4 mg PO Q6HP PRN 03/24/19 [History Confirmed 03/24/19 Last Taken Un known] Medical - DS: Hosp Hospital course: Ms. Ludwig is a 64 year old F with history of HIV AIDS, end-stage renal disease follows with Dr. Pineda, COPD presents to the emergency room today at [facility] for evaluation of shortness of breath. At the time of presentation she was in acute respiratory distress. The patient notes that she was at her baseline status until yesterday, in the afternoon she started to develop shortness of breath, she used her inhalers as well as Advair without any improvement since her breathing was getting worse she went to the emergency room for further evaluation. The patient has cough but unable to characterize sputum, denies any fever chills does have some chronic headache. She denies any chest pain does have shortness of breath denies any palpitations dizziness, does have some nausea feels like she is going to throw up, does have chronic abdominal pain intermittent, the patient denies any diarrhea, she still makes urine, she has generalized aches and pains all over body from fibromyalgia. The patient has history of HIV AIDS follows with [facility], last CD4 count October 2018 was 520, CD4 percentage was 45% She has a history of COPD and has required intubations in the past. The patient has history of end-stage renal disease and follows with Dr. Pineda. On presenting to the emergency room the patient was in respiratory distress, she was given bronchodilators magnesium and placed on BiPAP, it was noted that the patient chest x-ray showed she had pneumonia, her blood pressure was also very high to 220/140 as per the ED provider and the patient was started on nitroglycerin drip. The patient had hemodialysis day before yesterday and is scheduled for hemodialysis today. Her schedule is Wednesday. Labs show WBC count of 8.3 91.8% neutrophils, hemoglobin 9.1 sodium 126 potassium 5.3 bicarbonate 19 creatinine 5.2 BUN 53 glucose 119 troponin is 0.01, venous blood gas shows pH of 7.34 PCO2 45 Chest x-ray not available for viewing official report is not available Given the fact that [facility] does not have dialysis patient is being admitted to the ICU in this hospital given that she needs BiPAP therapy as well as is on a nitroglycerin drip. 03/25 Patient seen examined, no acute issues, tolerating po diet well, still feels quite weak had HD again this AM Hb dropped to 6.9, no overt signs of bleed, iron studies reviewed, elevated ferritin, normal tsat. transfuse 2 units today, and monitor xfer to tele status. Ptis off NTG drip and bp is well controlled with po meds 03/26 Patient seen examined, doiung well, off oxygen now. able to ambulate well, seems back to baseline no e/o infection off antibiotics planned HD tomorrow as outpatient. In Summary Patient admitted to the hospital with diagnosis of chf exacerbation, possible pneumonia, and hypertensive emergency Treated initially with IV abx, but cultures were neg, ID consulted for amanda díaz of HIV and pna. Patient also was seen by Dr Pineda for HD, 2 sessions of HD, with fluid removal, Pt had drop in Hb to 6.9, no e/o bleed, s/p 2 units of transfusion and hb improved to 9.9 pt bp is back to baseline and well controlled with her home meds. Her biggest challenge it seems is limitiing salt and fluid intake, the need for compliance was reinforced. d/c home today, and HD planned for tomorrow as outpatient With Dr Pineda Discharge diagnosis: Hypertensive emergency, CHF exacerbation - Time Spent with Patient Total time spent providing and/or coordinating discharge services: Greater than 30 minutes Medical - DS: Exam - Constitutional Vitals: Vital Signs Temp Pulse Resp BP Pulse Ox 03/26/19 09:07 69 18 03/26/19 08:47 98.6 F 18 117/69 99 03/26/19 06:30 97 03/26/19 04:16 97.9 F 58 L 14 100 03/26/19 04:07 21 134/79 99 03/26/19 04:02 14 03/26/19 00:01 63 13 106/67 100 03/25/19 22:58 98.8 F 54 L 15 121/82 100 03/25/19 22:45 75 16 03/25/19 20:09 17 03/25/19 20:01 97.5 F 62 13 121/82 97 03/25/19 18:55 62 18 03/25/19 18:01 62 24 H 94/63 94 03/25/19 17:30 64 15 118/74 97 03/25/19 17:10 15 120/73 03/25/19 17:00 15 116/70 03/25/19 16:30 16 122/76 03/25/19 16:00 14 123/79 03/25/19 15:30 64 15 116/79 94 03/25/19 15:14 61 16 03/25/19 15:00 15 124/81 92 03/25/19 14:30 98.9 F 12 118/70 95 03/25/19 14:22 98.8 F 58 L 14 110/71 93 03/25/19 14:01 98.6 F 14 120/74 93 03/25/19 13:30 68 19 140/103 97 03/25/19 13:00 61 12 129/79 92 03/25/19 12:30 69 21 133/74 94 03/25/19 12:00 98.4 F 70 12 147/87 91 03/25/19 11:30 76 17 164/81 100 03/25/19 11:28 74 15 03/25/19 11:26 71 15 137/83 100 03/25/19 11:15 99 F 70 18 108/66 92 03/25/19 11:00 16 114/67 Intake and Output 03/25/19 03/26/19 03/26/19 21:59 05:59 13:59 Intake Total 1518 460 Output Total 25 Balance 1518 -25 460 Intake: Nourishment/Supplement quantity 100 (ml) IV 131 Oral 712 360 Blood Product 675 Output: Void Amount 25 Other: Meal Sherbert Breakfast Percent of Meal Consumed 100% 75% Nourishment/Supplement name breeze Urine Color Bright Yellow Stool Size Small Stool Color Yellow Stool Consistency Loose # Bowel Movements 1 Weight 99 lb Additional comments: Constitutional; Afebrile, cooperative, alert, not in distress. Eyes- No icterus, , No periorbital swelling Ears- Ext ear normal, hearing normal to conversation. Neck- Midline trachea, supple Respiratory system: Air Entry equal on both sides, No crackles or wheezing, no rhonchi. CVS- Rate rhythm regular, S1,S2 heard, no gallop, no rub. Abdomen- Soft nontender abdomen, no organomegaly, no tenderness, no guarding or rigidity, [employer]- AOOx3, moving all extremities, no gross focal deficit noted. Medical - DS: Data Labs on day of discharge: Labs from last 24 hours 03/26/19 03/26/19 03/25/19 03:29 03:29 09:20 WBC 5.6 RBC 3.15 L Hgb 9.9 L Hct 29.8 L MCV 94.5 MCH 31.4 MCHC 33.2 RDW 16.9 H Plt Count 133 L MPV 7.4 Gran % 77.5 Lymph % (Auto) 14.3 L [place] % (Auto) 8.1 Eos % (Auto) 0 Baso % (Auto) 0.1 Gran # 4.4 Lymph # (Auto) 0.8 L [place] # (Auto) 0.5 Eos # (Auto) 0 Baso # (Auto) 0 Sodium 129 L Potassium 4.4 Chloride 87 L Carbon Dioxide 23 Anion Gap 19.0 H BUN 50 H Creatinine 4.8 H GFR Calculation 9 Glucose 119 H Uric Acid 3.0 Calcium 8.3 L Phosphorus 6.5 H* Magnesium 2.1 Iron TIBC Unsat Iron Binding Transferrin % Sat Ferritin Total Bilirubin 0.3 Direct Bilirubin < 0.2 GGT 23 AST 16 ALT 21 Alkaline Phosphatase 71 Lactate Dehydrogenase 252 H Total Protein 7.0 Albumin 4.2 Globulin 2.8 Albumin/Globulin Ratio 1.5 Triglycerides 120 Vitamin B12 Folate 15.8 03/25/19 09:20 WBC RBC Hgb Hct MCV MCH MCHC RDW Plt Count MPV Gran % Lymph % (Auto) [place] % (Auto) Eos % (Auto) Baso % (Auto) Gran # Lymph # (Auto) [place] # (Auto) Eos # (Auto) Baso # (Auto) Sodium Potassium Chloride Carbon Dioxide Anion Gap BUN Creatinine GFR Calculation Glucose Uric Acid Calcium Phosphorus Magnesium Iron 99 TIBC 215 L Unsat Iron Binding 116 Transferrin % Sat 46 Ferritin 1408.0 H Total Bilirubin Direct Bilirubin GGT AST ALT Alkaline Phosphatase Lactate Dehydrogenase Total Protein Albumin Globulin Albumin/Globulin Ratio Triglycerides Vitamin B12 433.4 Folate Preliminary micro results at discharge 03/24/19 17:18 Blood Culture - Preliminary Blood 03/24/19 16:00 Blood Culture - Preliminary Blood Medical - DS: A/P - Patient/Caregiver Discharge Instructions Activity: increase activity as tolerated Diet: Low Sodium (2gm), Cardiac, Renal Additional Instructions: Follow up with Dr Pineda for regular Hemodialysis sessions Follow up outpatient with your Infectious disease provider as scheduled Go to the ER if worsening symptoms, chest pain or shortness of breath Please limit fluid intake to 1500ml in 24 hrs and salt intake to 2-4gms in 24 hrs, this will help keep fluid off your lungs, keep your blood pressure in check. No changes made to your chronic home medication list, please take them as prescribed by your regular provider. - Follow up Plan Disposition: Home, Self-Care Prognosis: Fair Rehab Potential: Fair I certify that the patient requires SNF services: No Overall status at discharge: patient is progressing back to baseline Medical - DS: Qual - VTE Deep Vein Thrombosis/Pulmonary Embolism Present on Admission: No
[2019-03-27] MEDS ORDERED: EMTRIVA PO SCH (09:00)
== END 2019-03-26 11:15 | disposition home or self-care (01) | DRG 304 ==
LOC: ICU 01:00
PROVIDERS: ADMIT Internal Medicine; ATTEND Internal Medicine

== ENCOUNTER 2019-07-10 02:25 | Inpatient (IN) ==
[2019-07-10] MEDS ORDERED: methylPREDNISolone SOD SUCC 125 MG/2 ML VIAL IV ONE (02:30)
[2019-07-10] MEDS ORDERED: IPRATROPIUM/ALBUTEROL 3 ML AMPUL.NEB NEB ONE (02:30)
[2019-07-10] MEDS ORDERED: NITROGLYCERIN 1 GM OINT.TOP ONE (03:02)
[2019-07-10] MEDS ORDERED: ALBUTEROL SULFATE 2.5 MG/3 ML NEBULIZER NEB SCH (03:30)
[2019-07-10] MEDS ORDERED: ALBUTEROL SULFATE 2.5 MG/3 ML NEBULIZER NEB ONE (03:30)
[2019-07-10 03:37] LABS: Basophils # (Auto) 0 K/mcL (0.0-0.3); Basophils % (Auto) 0.4 % (0.0-2.0); Eosinophils # (Auto) 0.1 K/mcL (0.0-0.7); Eosinophils % (Auto) 0.8 % (0.0-7.0); Granulocytes % (Auto) 75.9 % (38.0-78.0); Hematocrit 32.3 % (36.0-48.0); Hemoglobin 10.8 g/dL (12.0-15.0); Lymphocytes # (Auto) 2.1 K/mcL (1.5-4.8); Lymphocytes % (Auto) 17.9 % (15.5-49.0); Mean Cell Volume 94.3 fL (80.0-100.0); Mean Corpuscular HGB Conc 33.4 g/dL (31.0-36.0); Mean Platelet Volume 6.5 fL (7.4-10.4); Monocytes # (Auto) 0.6 K/mcL (0.1-0.9); Platelet Count 242 K/mcL (140-440); RBC 3.42 M/mcL (4.00-5.20); Red Cell Distribution Width 15.1 % (11.5-14.5); WBC 11.6 K/mcL (4.5-11.0)
[2019-07-10 04:13] LABS: ALT/SGPT 16 U/l (0-40); AST/SGOT 21 U/l (0-37); Albumin 5.1 gm/dL (3.2-5.2); Albumin/Globulin Ratio 1.4 (1.0-2.3); Alkaline Phosphatase 133 U/L (39-117); Bilirubin,Total 0.5 mg/dL (0.0-1.0); Blood Urea Nitrogen 48 mg/dl (8-23); Calcium 9.2 mg/dl (8.6-10.4); Carbon Dioxide 19 mmol/L (22-30); Chloride 85 mmol/L (96-108); Globulin 3.7 gm/dL (2.2-3.7); Glomerular Filtration Rate 7; Glucose 116 mg/dL (70-105)
[2019-07-10] MEDS ORDERED: DEXTROSE 50% 50 ML SYRINGE IV ONE (04:17)
[2019-07-10] MEDS ORDERED: CALCIUM CHLORIDE 1,000 MG/10 ML SYRINGE IV ONE (04:17)
[2019-07-10] MEDS ORDERED: SODIUM POLYSTYRENE SULFONATE 15 GM/60 ML SUSPENSION PO ONE (04:18)
[2019-07-10] MEDS ORDERED: CALCIUM GLUCONATE 7 MEQ in DEXTROSE 5% IN WATER 50 ML IV ONE (04:21)
[2019-07-10] MEDS ORDERED: DEXTROSE 50% 50 ML VIAL IV ONE (04:22)
[2019-07-10] MEDS ORDERED: INSULIN REGULAR, HUMAN 1 UNIT/0.01 ML UNIT IV ONE (04:27)
[2019-07-10] MEDS: DEXTROSE 10 % IN WATER 1,000 ML IV SCH (04:49)
[2019-07-10] MEDS ORDERED: CALCIUM GLUCONATE 4.65 MEQ/10 ML VIAL IV ONE (04:49)
[2019-07-10] MEDS ORDERED: ALBUTEROL SULFATE 5 MG/ML NEB SOLUTION BOTTLE NEB ONE (05:30)
--- NOTE | 2019-07-10 07:17 | Emergency Department Note ---
SOB HPI - General Chief Complaint: Shortness of Breath/Dyspnea Stated Complaint: SOB Time Seen by Provider: 07/10/19 02:29 Source: patient Mode of arrival: ambulatory Limitations: no limitations - History of Present Illness This is a dialysis patient who came in feeling short of breath. She has a history of COPD and is wheezing. This is been going on for the last several hours. She had dialysis on Wednesday and is due to have it again on Wednesday. No chest pain abdominal pain nausea or vomiting. - Related Data Home Medications Medication Instructions Recorded Confirmed loperamide 2 mg capsule 2 mg PO Q4H PRN cap 03/31/19 07/06/19 acetaminophen 325 mg capsule 650 mg PO Q4H PRN 04/17/19 07/06/19 albuterol sulfate 90 mcg/actuation 2 puff INHALATION Q6H PRN 04/17/19 07/06/19 aerosol inhaler amlodipine 10 mg tablet 10 mg PO QDAY 04/17/19 07/06/19 clonidine HCl 0.2 mg tablet 0.2 mg PO BID tab 04/17/19 07/06/19 levetiracetam 250 mg tablet 500 mg PO BID 04/17/19 07/06/19 lisinopril 40 mg tablet 40 mg PO QDAY 04/17/19 07/06/19 Narcan 4 mg INTRANASAL PRN 05/09/19 07/06/19 budesonide 0.5 mg/2 mL suspension 0.5 mg INHALATION Q12H PRN 05/09/19 07/06/19 for nebulization dicyclomine 10 mg capsule 10 mg PO DAILY cap 05/09/19 07/06/19 duloxetine 30 mg capsule,delayed 60 mg PO QDAY cap 05/09/19 07/06/19 release fluticasone 250 mcg-salmeterol 50 1 inh INHALATION BID PRN 05/09/19 07/06/19 mcg/dose blistr powdr for inhalation furosemide 80 mg tablet 80 mg PO .COMPLEX PRN 05/09/19 07/06/19 ipratropium bromide 17 2 puff INHALATION BID PRN g 05/09/19 07/06/19 mcg/actuation HFA aerosol inhaler calcium acetate PO 06/05/19 07/06/19 Previous Rx's Medication Instructions Recorded cyclobenzaprine 5 mg tablet 5 mg PO TID PRN #30 tab 05/09/19 Cefuroxime Axetil [Cefuroxime] 250 mg PO UD #10 tab 06/03/19 Ondansetron [Zofran ODT] 4 mg SL Q4-6HP PRN #10 tab 06/03/19 dolutegravir 50 mg-rilpivirine 25 1 tab PO QDAY #90 tab 06/06/19 mg tablet hepatitis A and B virus 1 ml IM ONCE #1 ml 06/06/19 vaccine(PF)720 PALMER unit-20 mcg/mL IM syringe tenofovir disoproxil fumarate 300 300 mg PO .qweekly #20 tab 06/06/19 mg tablet buprenorphine 2 mg-naloxone 0.5 mg 1 film SUBLINGUAL BID #14 each 07/06/19 sublingual film Allergies Allergy/AdvReac Type Severity Reaction Status Date / Time dihydroergotamine Allergy Unknown Unknown Verified 07/06/19 11:16 ketorolac [From Toradol] AdvReac Mild Itching Verified 07/06/19 11:16 Review of Systems All systems ED: reviewed and negative except as stated. 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) Tobacco abuse (Chronic) Depression (Chronic) Opioid dependence (Chronic) Upper GI bleed (Chronic) Aspiration pneumonia (Chronic) Hyperphosphatemia (Chronic) Hyperkalemia (Chronic) Volume overload (Chronic) Metabolic acidosis (Chronic) Posterior reversible encephalopathy syndrome (Chronic) History of seizures (Chronic 09/2018) Anemia in chronic kidney disease (CKD) (Chronic) End stage renal disease on dialysis (Chronic) Migraines (Chronic) Renal disease (Chronic) Chronic GERD (Chronic) COPD (chronic obstructive pulmonary disease) (Chronic) Chronic pain (Chronic) Hemodialysis status (Chronic) N&V (nausea and vomiting) (Chronic) Arthritis (Chronic) HIV (human immunodeficiency virus infection) (Chronic 2000) HTN (hypertension) (Chronic) Past Surgical History (Last Reviewed 07/06/19 @ 11:16 by Karly Chun CMA) History of gastric bypass (Chronic) History of hysterectomy (Chronic ~1991) History of peritoneal dialysis (Chronic) Status post biopsy of kidney (Chronic ~2012) Status post cystourethroscopy with dilation of urethral stricture (Chronic ~06/01/19) Family History (Last Reviewed 07/06/19 @ 11:16 by Karly Chun CMA) Mother Heart disease Breast cancer, Onset Age: 62 Arthritis High blood pressure Migraines Thyroid disease Father Stomach cancer Heart disease Arthritis High blood pressure Heart attack Unknown Bruising Sister Arthritis Thyroid disease Brother Arthritis Opiate addiction Grandmother Dementia Daughter Migraines Family/Other Opiate addiction Other Family history of breast cancer Family history- stomach cancer Medical history: Reports: GERD, HIV/AIDS, hypertension, migraine, renal disease (End-stage) Surgical history ED: Reports: other (Gastric bypass, lithotripsy) - Social History smoking status: Former smoker Physical Exam Limitations: no limitations General appearance: alert Head: atraumatic Eye: Present: normal appearance ENT: Present: normal exam Neck: Present: normal inspection Chest: Present: normal inspection Respiratory: Present: rales/crackles, wheezes Cardiovascular: Present: regular rate, normal rhythm, normal heart sounds Abdominal: Present: soft. Absent: distention, tenderness Neurological: Present: alert Psychiatric: Present: normal affect Skin: Present: warm, dry Course Vital Signs Temperature 97.6 F 07/10/19 02:27 Pulse Rate 127 H 07/10/19 02:27 Respiratory Rate 36 H 07/10/19 02:27 Blood Pressure 265/153 07/10/19 02:27 Pulse Oximetry (%) 85 L 07/10/19 02:27 Temperature 97.9 F 07/10/19 05:55 Pulse Rate 58 L 07/10/19 05:55 Respiratory Rate 26 H 07/10/19 05:55 Blood Pressure 177/88 07/10/19 05:55 Pulse Oximetry (%) 99 07/10/19 05:55 Shortness of Breath/Dyspnea - MDM Narrative Medical decision making narrative: Patient's chest x-ray looks like fluid overload to me. However she did respond to DuoNeb treatments and we started a heart neb which helped. I discussed case with Dr. Pineda and he agreed to admit the patient to the ICU for acute dialysis. Her potassium was 7.1 and we did start the hyperkalemia protocol. - Lab Data Lab results reviewed: Yes I reviewed the patient's lab results. Result diagrams: 07/10/19 02:50 07/10/19 02:50 Lab Results 07/10/19 07/10/19 07/10/19 Range/Units 02:50 02:50 02:50 WBC 11.6 H (4.5-11.0) K/mcL RBC 3.42 L (4.00-5.20) M/mcL Hgb 10.8 L (12.0-15.0) g/dL Hct 32.3 L (36.0-48.0) % MCV 94.3 (80.0-100.0) fL MCH 31.5 (26.0-34.0) pg MCHC 33.4 (31.0-36.0) g/dL RDW 15.1 H (11.5-14.5) % Plt Count 242 (140-440) K/mcL MPV 6.5 L (7.4-10.4) fL Gran % 75.9 (38.0-78.0) % Lymph % (Auto) 17.9 (15.5-49.0) % [place] % (Auto) 5.0 (1.0-12.0) % Eos % (Auto) 0.8 (0.0-7.0) % Baso % (Auto) 0.4 (0.0-2.0) % Gran # 8.8 H (1.8-8.0) K/mcL Lymph # (Auto) 2.1 (1.5-4.8) K/mcL [place] # (Auto) 0.6 (0.1-0.9) K/mcL Eos # (Auto) 0.1 (0.0-0.7) K/mcL Baso # (Auto) 0 (0.0-0.3) K/mcL Sodium 122 L (133-145) mmol/L Potassium 7.1 H* (3.3-5.1) mmol/L Chloride 85 L (96-108) mmol/L Carbon Dioxide 19 L (22-30) mmol/L Anion Gap 18.0 H (8-16) BUN 48 H (8-23) mg/dl Creatinine 5.8 H* (0.6-1.1) mg/dl GFR Calculation 7 Glucose 116 H (70-105) mg/dL Calcium 9.2 (8.6-10.4) mg/dl Total Bilirubin 0.5 (0.0-1.0) mg/dL AST 21 (0-37) U/l ALT 16 (0-40) U/l Alkaline Phosphatase 133 H (39-117) U/L Troponin T 0.03 (0-0.03) ng/ml NT-Pro-B Natriuret Pep (0-125) pg/ml Total Protein 8.8 H (5.9-8.4) gm/dL Albumin 5.1 (3.2-5.2) gm/dL Globulin 3.7 (2.2-3.7) gm/dL Albumin/Globulin Ratio 1.4 (1.0-2.3) 07/10/19 Range/Units 02:50 WBC (4.5-11.0) K/mcL RBC (4.00-5.20) M/mcL Hgb (12.0-15.0) g/dL Hct (36.0-48.0) % MCV (80.0-100.0) fL MCH (26.0-34.0) pg MCHC (31.0-36.0) g/dL RDW (11.5-14.5) % Plt Count (140-440) K/mcL MPV (7.4-10.4) fL Gran % (38.0-78.0) % Lymph % (Auto) (15.5-49.0) % [place] % (Auto) (1.0-12.0) % Eos % (Auto) (0.0-7.0) % Baso % (Auto) (0.0-2.0) % Gran # (1.8-8.0) K/mcL Lymph # (Auto) (1.5-4.8) K/mcL [place] # (Auto) (0.1-0.9) K/mcL Eos # (Auto) (0.0-0.7) K/mcL Baso # (Auto) (0.0-0.3) K/mcL Sodium (133-145) mmol/L Potassium (3.3-5.1) mmol/L Chloride (96-108) mmol/L Carbon Dioxide (22-30) mmol/L Anion Gap (8-16) BUN (8-23) mg/dl Creatinine (0.6-1.1) mg/dl GFR Calculation Glucose (70-105) mg/dL Calcium (8.6-10.4) mg/dl Total Bilirubin (0.0-1.0) mg/dL AST (0-37) U/l ALT (0-40) U/l Alkaline Phosphatase (39-117) U/L Troponin T (0-0.03) ng/ml NT-Pro-B Natriuret Pep 76951.0 H (0-125) pg/ml Total Protein (5.9-8.4) gm/dL Albumin (3.2-5.2) gm/dL Globulin (2.2-3.7) gm/dL Albumin/Globulin Ratio (1.0-2.3) - Radiology Data Radiology results reviewed: Yes I reviewed the patient's radiology results. Disposition Pt seen by EGG GATHERER/PA only: No Clinical Impression: Acute exacerbation of chronic obstructive airways disease, Congestive heart failure, Hyperkalemia Disposition: Xfer As Outpt/Obs ([facility]) Condition: Fair
[2019-07-10] MEDS ORDERED: cloNIDine HCL 0.1 MG TABLET PO PRN (07:38)
--- NOTE | 2019-07-10 07:39 | Internal Med History&Physical ---
Medical - H&P: [facility] Patient information: Note initiated : 07/10/19 at 7:35 am Service Date, if different from initiated Date: [] Patient: Shyann Ludwig a 64 y/o F admitted on 07/10/19 for Shortness of breath. Chief Complaint: [] History of present illness: Ms. Ludwig is a 64 year old F With presented to the ED with shortness of breath for several hours prior to visit the ED. last dialysis was Wednesday. Last dialysis was Wednesday. Denies chest or abdominal pain. She states she woke up feeling fine and was doing well at home until close to dinnertime. She became more short of breath. Denied any chest pain. Had weakness and some nausea. She is also found to be hyperkalemic as well as hyponatremic. Medications given for hyperkalemia and Dr. Pineda contacted from the ED for admission to ICU for acute dialysis. She is in the middle of her hemodialysis treatment and feeling much better. States she is been taking all her medications appropriately has missed any doses. She went to her dialysis treatment on Wednesday. Also found to be hypertensive. She says her systolic blood pressure runs 150s to 190s at home Review of Systems: Pertinent positives as above. Denies headache/fever/chills/vomiting/chest or abdominal pain/cough/diarrhea. 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) Tobacco abuse (Chronic) Depression (Chronic) Opioid dependence (Chronic) Upper GI bleed (Chronic) Aspiration pneumonia (Chronic) Hyperphosphatemia (Chronic) Hyperkalemia (Chronic) Volume overload (Chronic) Metabolic acidosis (Chronic) Posterior reversible encephalopathy syndrome (Chronic) History of seizures (Chronic 09/2018) Anemia in chronic kidney disease (CKD) (Chronic) End stage renal disease on dialysis (Chronic) Migraines (Chronic) Renal disease (Chronic) Chronic GERD (Chronic) COPD (chronic obstructive pulmonary disease) (Chronic) Chronic pain (Chronic) Hemodialysis status (Chronic) N&V (nausea and vomiting) (Chronic) Arthritis (Chronic) HIV (human immunodeficiency virus infection) (Chronic 2000) HTN (hypertension) (Chronic) Past Surgical History (Last Reviewed 07/06/19 @ 11:16 by Karly Chun CMA) History of gastric bypass (Chronic) History of hysterectomy (Chronic ~1991) History of peritoneal dialysis (Chronic) Status post biopsy of kidney (Chronic ~2012) Status post cystourethroscopy with dilation of urethral stricture (Chronic ~06/01/19) Family History (Last Reviewed 07/06/19 @ 11:16 by Karly Chun CMA) Mother Heart disease Breast cancer, Onset Age: 62 Arthritis High blood pressure Migraines Thyroid disease Father Stomach cancer Heart disease Arthritis High blood pressure Heart attack Unknown Bruising Sister Arthritis Thyroid disease Brother Arthritis Opiate addiction Grandmother Dementia Daughter Migraines Family/Other Opiate addiction Other Family history of breast cancer Family history- stomach cancer Social History (Last Updated 07/06/19 @ 11:33 by Andie Dong DO) Uses E cigarettes Denies alcohol use Ambulated independently Lives with sister Medical - H&P: Meds Home Medications Medication Instructions Recorded Confirmed Type loperamide 2 mg capsule 2 mg PO Q4H PRN cap 03/31/19 07/06/19 History acetaminophen 325 mg capsule 650 mg PO Q4H PRN 04/17/19 07/06/19 History albuterol sulfate 90 mcg/actuation 2 puff INHALATION Q6H PRN 04/17/19 07/06/19 History aerosol inhaler amlodipine 10 mg tablet 10 mg PO QDAY 04/17/19 07/06/19 History clonidine HCl 0.2 mg tablet 0.2 mg PO BID tab 04/17/19 07/06/19 History levetiracetam 250 mg tablet 500 mg PO BID 04/17/19 07/06/19 History lisinopril 40 mg tablet 40 mg PO QDAY 04/17/19 07/06/19 History Narcan 4 mg INTRANASAL PRN 05/09/19 07/06/19 History budesonide 0.5 mg/2 mL suspension 0.5 mg INHALATION Q12H PRN 05/09/19 07/06/19 History for nebulization cyclobenzaprine 5 mg tablet 5 mg PO TID PRN #30 tab 05/09/19 07/06/19 Rx dicyclomine 10 mg capsule 10 mg PO DAILY cap 05/09/19 07/06/19 History duloxetine 30 mg capsule,delayed 60 mg PO QDAY cap 05/09/19 07/06/19 History release fluticasone 250 mcg-salmeterol 50 1 inh INHALATION BID PRN 05/09/19 07/06/19 History mcg/dose blistr powdr for inhalation furosemide 80 mg tablet 80 mg PO .COMPLEX PRN 05/09/19 07/06/19 History ipratropium bromide 17 2 puff INHALATION BID PRN g 05/09/19 07/06/19 History mcg/actuation HFA aerosol inhaler Cefuroxime Axetil [Cefuroxime] 250 mg PO UD #10 tab 06/03/19 07/06/19 Rx Ondansetron [Zofran ODT] 4 mg SL Q4-6HP PRN #10 tab 06/03/19 07/06/19 Rx calcium acetate PO 06/05/19 07/06/19 History dolutegravir 50 mg-rilpivirine 25 1 tab PO QDAY #90 tab 06/06/19 07/06/19 Rx mg tablet hepatitis A and B virus 1 ml IM ONCE #1 ml 06/06/19 07/06/19 Rx vaccine(PF)720 PALMER unit-20 mcg/mL IM syringe tenofovir disoproxil fumarate 300 300 mg PO .qweekly #20 tab 06/06/19 07/06/19 Rx mg tablet buprenorphine 2 mg-naloxone 0.5 mg 1 film SUBLINGUAL BID #14 each 07/06/19 07/06/19 Rx sublingual film Allergies Allergy/AdvReac Type Severity Reaction Status Date / Time dihydroergotamine Allergy Unknown Unknown Verified 07/10/19 08:49 ketorolac [From Toradol] AdvReac Mild Itching Verified 07/10/19 08:49 Medical - H&P: Exam - Constitutional Vitals: Temp Pulse Resp BP Pulse Ox 98.4 F 58 L 26 H 177/88 95 07/10/19 06:45 07/10/19 05:55 07/10/19 05:55 07/10/19 05:55 07/10/19 06:45 Exam: General: Alert, Awake, No acute Distress Eyes/N/T: EOMI, PEERL, Head/Neck: neck supple, normocephalic atraumatic CV: RRR, No murmurs, normal s1/s2 Pulm: bibase raled, no wheezing Abd: soft, nontender, +BS x4 Ext: no clubbing/cyanosis/edema Neuro: Alert, no focal deficits, moves all extremities, CN 2-12 grossly intact, symmetrical strength b/l upper/lower, sensations intact b/l upper/lower Skin: warm/dry Medical - H&P: Reslt - Labs CBC & Chem 7: 07/10/19 02:50 07/10/19 02:50 Labs: Short CBC 07/10/19 Range/Units 02:50 WBC 11.6 H (4.5-11.0) K/mcL Hgb 10.8 L (12.0-15.0) g/dL Hct 32.3 L (36.0-48.0) % Plt Count 242 (140-440) K/mcL BMP 07/10/19 02:50 Sodium 122 L Potassium 7.1 H* Chloride 85 L Carbon Dioxide 19 L BUN 48 H Creatinine 5.8 H* Glucose 116 H Calcium 9.2 Cardiac Enzymes 07/10/19 Range/Units 02:50 Troponin T 0.03 (0-0.03) ng/ml Liver Function 07/10/19 Range/Units 02:50 Total Bilirubin 0.5 (0.0-1.0) mg/dL AST 21 (0-37) U/l ALT 16 (0-40) U/l Alkaline Phosphatase 133 H (39-117) U/L Albumin 5.1 (3.2-5.2) gm/dL - Impressions Chest x-ray with pulmonary edema Medical - H&P: A/P - Narrative A/P Narrative: A: *Hypertensive emergency (h/o HTN): *Volume overload and pulmonary edema: 2/2 above *Acute hypoxic respiratory failure: -on 1L NC from NRB in ED *Hyperkalemia: *hyponatremia, chronic: *ESRD: Follows with Dr. Pineda *Anemia, chronic: *HIV: *COPD (no home O2): *Chronic pain: Follows Dr. Dong *History of seizure related to PRES: *Depression/anxiety: * P: -Dr. Pineda for emergent HD -electrolytes and diuretics per Neprho -f/u labs after HD - -O2 supp prn and home IH's -cont home BP meds with prn clonidine and IV hydralazine, any further adjustment per Nephr -cont home HIV meds and pain meds -cont home keppra - -ppx: heparin full code
--- NOTE | 2019-07-10 08:18 | XRay Report ---
CLINICAL INFORMATION: sob COMPARISON: 03/24/2019 FINDINGS: Mild cardiomegaly is unchanged. Mediastinum is unremarkable. Right double lumen central line tip overlies the tricuspid valve plane - as previously seen. Moderate patchy alveolar infiltrates or edema in the perihilar regions with interstitial disease throughout both lungs is appreciated. The pulmonary vessels are obscured by infiltrate, but are likely distended. No definite effusion IMPRESSION: Moderate perihilar airspace disease with interstitial disease throughout both lungs. This is likely cardiogenic edema related to CHF, however the pulmonary vessels are difficult to assess. If there is clinical support for CHF, consider diuretic trial and repeat two-view chest to reassess potential infiltrates Double-lumen catheter tip lies near the tricuspid valve plane. It should be withdrawn 4 cm Interpreted and Authenticated by: Rene Padilla 07/10/19
[2019-07-10] MEDS ORDERED: ONDANSETRON 4 MG/2 ML VIAL IV PRN (10:46)
[2019-07-10] MEDS ORDERED: LACTULOSE 20 GM/30 ML ORAL.SOL PO PRN (10:46)
[2019-07-10] MEDS ORDERED: POLYETHYLENE GLYCOL 3350 17 GM PACKET PO PRN (10:46)
[2019-07-10] MEDS ORDERED: POTASSIUM CHLORIDE 20 MEQ TABLET PO PRN (10:46)
[2019-07-10] MEDS: hydrALAZINE 20 MG/ML VIAL IV PRN (10:48)
[2019-07-10] MEDS: NICOTINE 14 MG PATCH TOPICAL SCH (11:15)
[2019-07-10] MEDS: HYDROcodone/APAP 5/325MG TABLET PO PRN ×2 (11:34→23:34)
[2019-07-10] MEDS ORDERED: CALCIUM ACETATE 667 MG CAPSULE PO PRN (12:02)
[2019-07-10] MEDS ORDERED: TAMSULOSIN 0.4 MG CAPSULE PO PRN (12:02)
[2019-07-10] MEDS ORDERED: BUPRENORPHINE/NALOXONE 4MG/1MG ORAL FILM SL ONE (13:32)
[2019-07-10 15:02] LABS: ALT/SGPT 23 U/l (0-40); AST/SGOT 24 U/l (0-37); Albumin 4.4 gm/dL (3.2-5.2); Albumin/Globulin Ratio 1.5 (1.0-2.3); Alkaline Phosphatase 103 U/L (39-117); Bilirubin,Direct < 0.2 mg/dL (0.0-0.3); Bilirubin,Total 0.3 mg/dL (0.0-1.0); Blood Urea Nitrogen 11 mg/dl (8-23); Calcium 8.9 mg/dl (8.6-10.4); Carbon Dioxide 28 mmol/L (22-30); Chloride 91 mmol/L (96-108); Globulin 2.9 gm/dL (2.2-3.7); Glomerular Filtration Rate 18; Glucose 234 mg/dL (70-105); Lactate Dehydrogenase 234 U/L (94-250); Triglycerides 49 mg/dl (<150); Uric Acid 1.8 mg/dL (2.5-8.0)
--- NOTE | 2019-07-10 15:10 | Nephrology Progress Note ---
Subjective Patient information: Note initiated : 07/10/19 at 3:08 pm Service Date, if different from initiated Date: [] Patient: Shyann Ludwig 64 y/o F admitted on 07/10/19 for Shortness of breath. Chief Complaint: [] Shortness of breath. Objective - Vital Signs Vital signs: Vital Signs Temp Pulse Resp BP Pulse Ox 07/10/19 12:18 98 H 36 H 98 07/10/19 12:16 98 H 26 H 142/72 97 07/10/19 12:15 97 H 27 H 141/74 96 07/10/19 12:01 101 H 29 H 126/70 96 07/10/19 12:00 97 F 99 H 126/70 07/10/19 11:46 104 H 36 H 119/76 99 07/10/19 11:45 106 H 119/76 07/10/19 11:31 117 H 22 130/78 98 07/10/19 11:30 118 H 130/78 07/10/19 11:29 96 07/10/19 11:16 108 H 18 142/81 97 07/10/19 11:15 107 H 142/81 07/10/19 11:03 99 H 18 164/100 95 07/10/19 11:01 95 H 20 177/114 95 07/10/19 11:00 95 H 177/114 07/10/19 10:47 95 H 14 175/113 94 07/10/19 10:46 94 H 16 177/110 93 07/10/19 10:45 95 H 175/113 07/10/19 10:31 101 H 28 H 145/74 99 07/10/19 10:30 94 H 145/74 07/10/19 10:16 95 H 24 H 170/94 97 07/10/19 10:15 92 H 170/94 07/10/19 10:01 90 16 159/98 100 07/10/19 10:00 91 H 159/98 07/10/19 09:46 88 18 148/88 100 07/10/19 09:45 97 H 148/88 07/10/19 09:31 87 16 150/93 98 07/10/19 09:30 88 150/93 07/10/19 09:16 97 H 22 151/93 100 07/10/19 09:15 94 H 151/93 07/10/19 09:01 97 H 22 148/99 94 07/10/19 09:00 94 H 148/99 07/10/19 08:46 85 13 144/95 100 07/10/19 08:45 85 144/95 07/10/19 08:31 83 19 139/88 96 07/10/19 08:26 85 139/88 07/10/19 08:19 83 18 94 07/10/19 08:16 87 18 151/90 98 07/10/19 08:15 81 151/90 07/10/19 08:01 80 18 163/90 99 07/10/19 08:00 98.7 F 85 163/90 07/10/19 07:46 80 21 166/91 100 07/10/19 07:31 76 18 167/92 96 07/10/19 07:30 77 18 161/94 99 07/10/19 07:01 78 16 158/89 95 07/10/19 06:45 98.4 F 95 07/10/19 06:01 98.4 F 74 13 159/88 91 07/10/19 05:55 97.9 F 58 L 26 H 177/88 99 07/10/19 04:46 58 L 26 H 177/88 99 07/10/19 04:31 61 15 178/96 97 07/10/19 04:16 60 19 175/94 95 07/10/19 04:04 32 H 07/10/19 04:01 63 20 179/94 89 L 07/10/19 03:46 32 H 194/147 07/10/19 03:31 75 208/96 91 07/10/19 03:19 97 H 227/134 99 07/10/19 03:11 85 222/111 92 07/10/19 03:01 85 207/112 93 07/10/19 02:51 51 L 213/103 94 07/10/19 02:39 69 167/101 98 07/10/19 02:30 97.9 F 07/10/19 02:27 97.6 F 127 H 36 H 265/153 85 L Intake and Output 07/10/19 07/10/19 07/10/19 05:59 13:59 21:59 Intake Total 57 Output Total 5200 Balance 57 -5200 Intake: IV 57 Dextrose 10%-Water IV Solution 57 1,000 ml @ 50 mls/hr IV .Q20H MARGE Rx#:[id number] Output: Hemodialysis UF 5200 Other: Weight 98 lb 111 lb 9.6 oz Patient Weight 07/11/19 05:59 Weight 111 lb 9.6 oz Intake & Output: Intake & Output 07/10/19 07/10/19 07/10/19 05:59 13:59 21:59 Intake Total 57 Output Total 5200 Balance 57 -5200 Weight 98 lb 111 lb 9.6 oz Intake: IV 57 Dextrose 10%-Water IV Solution 57 1,000 ml @ 50 mls/hr IV .Q20H MARGE Rx#:[id number] Output: Hemodialysis UF 5200 - General Appearance General appearance: appears started age EENT: ATNC Neck: no JVD Respiratory: no kyphosis Cardiology: mid-systolic murmur Gastrointestinal: normoactive bowel sounds Integumentary: no rash Neurologic: no focal deficit Psychiatric: mood/affect appropriate - Lab 07/10/19 02:50 07/10/19 14:00 Most recent lab results Calcium 8.9 mg/dl (8.6-10.4) 07/10/19 14:00 Phosphorus 3.0 mg/dL (2.7-4.5) 07/10/19 14:00 Magnesium 1.6 mg/dL (1.6-2.5) 07/10/19 14:00 Assessment and Plan (1) Congestive heart failure Status: Acute (2) End stage renal disease on dialysis Status: Chronic Comment: Admitted with fluid overload. Had dialysis and felt a lot better. She was tachycardic towards the end of dialysis, I am not sure why. Will plan for another ultrafiltration treatment tomorrow.
[2019-07-10] MEDS ORDERED: cloNIDine TTS 2 1 PATCH PATCH TD ONE (15:22)
[2019-07-10] MEDS: cloNIDine HCL 0.1 MG TABLET PO SCH ×2 (15:56→20:58)
[2019-07-10] MEDS: CYCLOBENZAPRINE 10 MG TABLET PO PRN ×2 (15:56→20:58)
[2019-07-10] MEDS: 0.9 % SODIUM CHLORIDE 10 ML SYRINGE IV SCH ×2 (15:59→21:10)
--- NOTE | 2019-07-10 16:26 | Consultation ---
DATE OF CONSULTATION: 07/10/2019 REASON FOR HOSPITALIZATION: Volume overload in an end-stage renal disease patient. HISTORY OF PRESENT ILLNESS: The patient is a 64-year-old female with a history of end-stage renal disease on hemodialysis. She dialyzes Wednesday, Wednesdays, and Fridays. She also has history of hypertension, seizure disorder, and HIV positive. Her HIV status has been fairly stable. She presented to the emergency room with sudden onset of shortness of breath several hours prior to the visit to the emergency room. She had dialysis treatment on Wednesday as an outpatient and had 5 liters of fluid removed. She woke up fine but felt short of breath more towards the end of the day. She had some weakness and occasional nausea. When she came to the emergency room, she was found to be hyponatremic and hyperkalemic and in fluid overload. The chest x-ray was consistent with pulmonary congestion. She reports that she has not had a primary care doctor in the last several months. PAST MEDICAL HISTORY: 1. History of seizure disorder since 09/2018. 2. History of ulcer in the stomach. 3. History of osteoporosis. 4. History of kidney stones. 5. End-stage renal disease on hemodialysis. 6. Posterior reversible encephalopathy syndrome related to hypertension. 7. Anemia in chronic kidney disease. 8. Migraine. 9. COPD. 10. Chronic pain syndrome. 11. HIV status. PAST SURGICAL HISTORY: 1. History of gastric bypass in the past. 2. History of hysterectomy in the past. 3. History of peritoneal dialysis. 4. History of status post kidney biopsy. 5. History of cystourethroscopy with dilatation of stricture. FAMILY HISTORY: Mother is , history of breast cancer and high blood pressure. Father is , had stomach cancer and heart problems. A sister who has arthritis and thyroid disease. SOCIAL HISTORY: She uses E-cigarettes. Denies any alcohol or drug use. Lives with her sister. MEDICATIONS ON ADMISSION: 1. Loperamide 2 mg p.r.n. 2. Albuterol inhaler 90 mcg. 3. Amlodipine 10 mg once daily. 4. Clonidine 0.2 mg twice daily. 5. Keppra 250 mg tablet 500 mg p.o. b.i.d. 6. Lisinopril 40 mg once daily. 7. Cyclobenzaprine 5 mg tablets three times daily p.r.n. 8. Duloxetine 30 mg tablet 60 mg total once daily. 9. Fluticasone inhalation p.r.n. 10. Lasix 80 mg once daily. 11. Ipratropium 2 puffs p.r.n. 12. Dolutegravir 50 mg/rilpivirine 25 mg tablet one tablet once daily. 13. Tenofovir 300 mg once weekly. ALLERGIES: 1. DIHYDROERGOTAMINE. 2. KETOROLAC. REVIEW OF SYSTEMS: As in history of present illness. PHYSICAL EXAMINATION: GENERAL: Alert, oriented x3. She is not in any distress now. She is still tachycardic. VITAL SIGNS: Blood pressure initially was 200/100 but now has improved to 120-140 systolic with diastolic in the 70s. Pulse rates have been in the one-teens. Pulse oximetry was 96%. HEENT: NC/AT. Pupils are reactive. External ear canal appears normal. ____ NECK: Supple. She does not have any jugular venous distention. No lymphadenopathy. No thyromegaly. LUNGS: Decreased air entry bilaterally but there are rales heard in the bases both sides. CARDIAC: S1, S2. No S3, S4. She has a 2/6 systolic murmur. ABDOMEN: Soft, nontender. No organomegaly. Positive bowel sounds. EXTREMITIES: Did not show evidence of edema. Difficult ___ dorsalis pedis and posterior tibials. No skin rash or joint swellings noted. NEUROLOGIC: Grossly intact. LABORATORY DATA: White count is 11.6 with a hemoglobin of 10.8 and a platelet count of 242. Sodium 122, potassium 7.1, chloride of 85, CO2 of 19, BUN of 45, creatinine of 5.8. After dialysis at 2:00 her sodium is 134, potassium 3.2, chloride of 91,creatinine is 2.7, and a uric acid is 1.8. IMAGING: Chest x-ray was read as interstitial lung disease, likely cardiogenic related to CHF. ASSESSMENT AND PLAN: 1. Volume overload in an end-stage renal disease patient. She had her regular treatment and had 5 liters taken out on Wednesday. This is dietary noncompliance. I do not see any other secondary causes at this time and she is significantly better post-dialysis. We will dialyze her again tomorrow to take out about 3 to 4 kilos of fluid as tolerated. 2. Tachycardia. I wonder if this is related to clonidine withdrawal. We will restart the clonidine back and see how she does. 3. End-stage renal disease on hemodialysis; dialyzes Wednesday, Wednesdays, and Fridays. 4. Seizure disorder. 5. Other medical problems managed per Dr. Ramirez. Kai Job ID: [id number] Doc ID: [id number] Giancarlo Pineda MD
[2019-07-10] MEDS: CARVEDILOL 12.5 MG TABLET PO SCH (18:21)
[2019-07-10] MEDS: CALCIUM ACETATE 667 MG CAPSULE PO SCH (18:21)
[2019-07-10] MEDS: BUPRENORPHINE/NALOXONE 4MG/1MG ORAL FILM SL SCH (20:57)
[2019-07-10] MEDS: DOCUSATE SODIUM 100 MG CAPSULE PO SCH (20:57)
[2019-07-10] MEDS: HEPARIN 5,000 UNIT/ML VIAL SQ SCH (20:57)
[2019-07-10] MEDS: OXYBUTYNIN CHLORIDE 5 MG TABLET PO SCH (20:58)
[2019-07-10] MEDS: levETIRAcetam 500 MG TABLET PO SCH (20:58)
[2019-07-10] MEDS ORDERED: AMITRIPTYLINE 25 MG TABLET PO SCH (21:00)
[2019-07-10] MEDS ORDERED: SENNOSIDES 1 TABLET PO PRN (21:00)
[2019-07-11] MEDS: 0.9 % SODIUM CHLORIDE 10 ML SYRINGE IV SCH ×3 (05:32→21:05)
--- NOTE | 2019-07-11 05:51 | Ultrasound Report ---
CLINICAL INFORMATION: Evaluate kidney stone COMPARISON: Abdomen and pelvic CT 03/24/2019 FINDINGS: Both kidneys are markedly atrophic and hyperechoic compatible with end-stage renal disease: The right kidney is 7.7 x 3.5 cm and the left kidney is 8.1 x 3.7 cm. Multiple small simple cysts and tiny nonobstructing stones scattered throughout both kidneys - unchanged from CT. There is no evidence of hydronephrosis. A larger stone, greater than 1 cm, is seen in the inferior left kidney likely within the inferior pelvis but exact anatomical localization is difficult with ultrasound. Urinary bladder contains 53 cc of urine, but no focal lesions. Right ureteral jet is appreciated. Left ureteral jet is not seen. IMPRESSION: 1. Marked atrophy of both kidneys with elevated renal echotexture compatible with end-stage renal disease. Scattered small cysts and tiny nonobstructing stones in both kidneys are unchanged 2. Large stone again noted in the inferior left kidney. Exact anatomical localization is difficult, but is likely located within the inferior pelvis. It does not result in hydronephrosis, which may be due to poor left renal function. There is no left ureteral jet compatible with lack of urine production by the left kidney. Consider: Repeat noncontrast upper abdominal CT to reevaluate stone size and position within the upper urinary tract Interpreted and Authenticated by: Rene Padilla 07/11/19
[2019-07-11] MEDS: DEXTROSE 10 % IN WATER 1,000 ML IV SCH (06:31)
[2019-07-11 06:44] LABS: Basophils # (Auto) 0 K/mcL (0.0-0.3); Basophils % (Auto) 0.4 % (0.0-2.0); Eosinophils # (Auto) 0 K/mcL (0.0-0.7); Eosinophils % (Auto) 0 % (0.0-7.0); Granulocytes % (Auto) 75.3 % (38.0-78.0); Hematocrit 22.3 % (36.0-48.0); Hemoglobin 7.4 g/dL (12.0-15.0); Lymphocytes # (Auto) 1.1 K/mcL (1.5-4.8); Lymphocytes % (Auto) 16.9 % (15.5-49.0); Mean Cell Volume 94.2 fL (80.0-100.0); Mean Corpuscular HGB Conc 33.5 g/dL (31.0-36.0); Mean Platelet Volume 6.5 fL (7.4-10.4); Monocytes # (Auto) 0.5 K/mcL (0.1-0.9); Monocytes % (Auto) 7.4 % (1.0-12.0); Platelet Count 149 K/mcL (140-440); RBC 2.37 M/mcL (4.00-5.20); Red Cell Distribution Width 15.6 % (11.5-14.5); WBC 6.3 K/mcL (4.5-11.0)
[2019-07-11 07:21] LABS: ALT/SGPT 15 U/l (0-40); AST/SGOT 15 U/l (0-37); Albumin 3.7 gm/dL (3.2-5.2); Albumin/Globulin Ratio 1.4 (1.0-2.3); Alkaline Phosphatase 83 U/L (39-117); Bilirubin,Direct < 0.2 mg/dL (0.0-0.3); Bilirubin,Total 0.3 mg/dL (0.0-1.0); Blood Urea Nitrogen 29 mg/dl (8-23); Calcium 7.7 mg/dl (8.6-10.4); Carbon Dioxide 26 mmol/L (22-30); Chloride 86 mmol/L (96-108); Globulin 2.7 gm/dL (2.2-3.7); Glomerular Filtration Rate 11; Glucose 106 mg/dL (70-105); Lactate Dehydrogenase 226 U/L (94-250); Phosphorous 4.9 mg/dL (2.7-4.5); Triglycerides 66 mg/dl (<150); Uric Acid 2.9 mg/dL (2.5-8.0)
--- NOTE | 2019-07-11 07:24 | Internal Med Progress Note ---
Medical - PN: Subj Patient information: Note initiated : 07/11/19 at 7:18 am Service Date, if different from initiated Date: [] Patient: Shyann Ludwig a 64 y/o F admitted on 07/10/19 for Shortness of breath. Chief Complaint: [] Interval history: Ms. Ludwig is a 64 year old F With presented to the ED with shortness of breath for several hours prior to visit the ED. last dialysis was Wednesday. Last dialysis was Wednesday. Denies chest or abdominal pain. She states she woke up feeling fine and was doing well at home until close to dinnertime. She became more short of breath. Denied any chest pain. Had we akness and some nausea. She is also found to be hyperkalemic as well as hyponatremic. Medications given for hyperkalemia and Dr. Pineda contacted from the ED for admission to ICU for acute dialysis. She is in the middle of her hemodialysis treatment and feeling much better. States she is been taking all her medications appropriately has missed any doses. She went to her dialysis treatment on Wednesday. Also found to be hypertensive. She says her systolic blood pressure runs 150s to 190s at home 07/11 Slept okay when she finally fell asleep. Breathing is much better today. No cough this morning. She has a bit of a headache. Blood pressure improving on the clonidine patch. Dialysis today. Review of Systems: denies fever/chills/nausea/vomiting/chest or abdominal pain/cough/diarrhea. Otherwise see above. - Constitutional Vitals: Vital Signs Temp Pulse Resp BP Pulse Ox 98.7 F 69 11 L 158/84 94 07/11/19 04:00 07/11/19 07:05 07/11/19 07:05 07/11/19 07:01 07/11/19 07:05 Period Temp Pulse Resp BP Sys/Hanson Pulse Ox Last 24 Hr 97 F-98.7 F 66-118 0-36 108-177/68-114 88-100 Intake and Output 07/10/19 07/11/19 07/11/19 21:59 05:59 13:59 Intake Total 245 943 Output Total 0 0 Balance 245 0 943 Weight 49.47 kg Intake & Output: Intake & Output 07/10/19 07/11/19 07/11/19 21:59 05:59 13:59 Intake Total 245 943 Output Total 0 0 Balance 245 0 943 Weight 49.47 kg Intake: IV 943 Dextrose 10%-Water IV Solution 943 1,000 ml @ 50 mls/hr IV .Q20H MARGE Rx#:[id number] Oral 245 Output: Void Amount 0 0 Other: Meal Dinner Percent of Meal Consumed 75% Exam: General: Alert, Awake, No acute Distress Eyes/N/T: EOMI, PEERL, Head/Neck: neck supple, CV: RRR, No murmurs, Pulm: minimal subtle base rales greatly improved, no wheezing Abd: soft, nontender, +BS x4 Ext: no clubbing/cyanosis/edema Neuro: Alert, no focal deficits, moves all extremities, Skin: warm/dry Medical - PN: Obj Da - Labs CBC & Chem 7: 07/11/19 04:05 07/11/19 04:05 Labs: Abnormal Lab Results 07/11/19 07/10/19 07/10/19 04:05 14:00 02:50 WBC RBC 2.37 L Hgb 7.4 L Hct 22.3 L RDW 15.6 H MPV 6.5 L Gran # Lymph # (Auto) 1.1 L Sodium Potassium 3.2 L Chloride 91 L Carbon Dioxide Anion Gap BUN Creatinine 2.7 H Glucose 234 H Uric Acid 1.8 L Alkaline Phosphatase NT-Pro-B Natriuret Pep 33389.0 H Total Protein 07/10/19 07/10/19 02:50 02:50 WBC 11.6 H RBC 3.42 L Hgb 10.8 L Hct 32.3 L RDW 15.1 H MPV 6.5 L Gran # 8.8 H Lymph # (Auto) Sodium 122 L Potassium 7.1 H* Chloride 85 L Carbon Dioxide 19 L Anion Gap 18.0 H BUN 48 H Creatinine 5.8 H* Glucose 116 H Uric Acid Alkaline Phosphatase 133 H NT-Pro-B Natriuret Pep Total Protein 8.8 H Meds: Medications Hydrocodone Bitart/Acetaminophen ([place] 5/325mg) 1 tab PO Q4-6HP PRN PRN Reason: PAIN LEVEL 3-6 Last Admin: 07/10/19 23:34 Dose: 1 tab Documented by: Amitriptyline HCl (Elavil) 50 mg PO [facility] Last Admin: 07/10/19 20:58 Dose: 50 mg Documented by: Amlodipine Besylate (Norvasc) 10 mg PO DAILY [facility] Buprenorphine HCl (Suboxone 4 Mg-1 Mg Sl Film) 0.5 each SL BID [facility] Last Admin: 07/10/19 20:57 Dose: 0.5 each Documented by: Calcium Acetate (Phoslo) 2,001 mg PO DAILYP PRN PRN Reason: SNACKS Calcium Acetate (Phoslo) 2,001 mg PO TIDCC [facility] Last Admin: 07/10/19 18:21 Dose: 2,001 mg Documented by: Carvedilol (Coreg) 25 mg PO BIDCC [facility] Last Admin: 07/10/19 18:21 Dose: 25 mg Documented by: Clonidine HCl (Catapres) 0.2 mg PO QIDP PRN PRN Reason: [id number]>160 Last Admin: 07/10/19 10:49 Dose: 0.2 mg Documented by: Clonidine HCl (Catapres) 0.2 mg PO TID [facility] Last Admin: 07/10/19 20:58 Dose: 0.2 mg Documented by: Cyclobenzaprine HCl (Flexeril) 5 mg PO TIDP PRN PRN Reason: Muscle Spasm Last Admin: 07/10/19 20:58 Dose: 5 mg Documented by: Docusate Sodium (Colace) 100 mg PO BID [facility] Last Admin: 07/10/19 20:57 Dose: 100 mg Documented by: Duloxetine HCl (Cymbalta) 60 mg PO DAILY [facility] Heparin Sodium (Porcine) (Heparin) 5,000 unit SQ Q12 [facility] Last Admin: 07/10/19 20:57 Dose: 5,000 unit Documented by: Hydralazine HCl (Apresoline) 0 mg IV Q2HP PRN PRN Reason: Hypertension Last Admin: 07/10/19 10:48 Dose: 20 mg Documented by: Lactulose (Cephulac) 10 gm PO DAILYP PRN PRN Reason: Constipation Levetiracetam (Keppra) 500 mg PO BID [facility] Last Admin: 07/10/19 20:58 Dose: 500 mg Documented by: Nicotine (Nicoderm) 14 mg TOPICAL DAILY@1000 [facility] Last Admin: 07/10/19 11:15 Dose: 14 mg Documented by: Ondansetron HCl (Zofran) 4 mg IV Q4HP PRN PRN Reason: Nausea And Vomiting Oxybutynin Chloride (Ditropan) 5 mg PO BID [facility] Last Admin: 07/10/19 20:58 Dose: 5 mg Documented by: Miguelito 50 Mg-25 Mg (Tablet) [facility]of[facility] Disoproxil Fumarate 300 Mg Tablet 1 dose PO Choi@0900 [facility]GE Polyethylene Glycol (Miralax) 17 gm PO DAILYP PRN PRN Reason: Constipation Potassium Chloride (Kdur) 40 meq PO UD PRN PRN Reason: Potassium < 3 Senna (Senokot) 2 tab PO HSP PRN PRN Reason: Constipation Sodium Chloride (Saline Flush) 10 ml IV Q8 [facility] Last Admin: 07/11/19 05:32 Dose: 10 ml Documented by: Tamsulosin HCl (Flomax) 0.4 mg PO DAILYP PRN PRN Reason: BLADDER SPASMS Medical - PN: A/P - Time Spent With Patient Total time spent is greater than 50% in coordination of care (as documented) at patient's floor/unit and/or counseling patient: - Narrative A/P Narrative: A: *Hypertensive emergency (h/o HTN): better controlled *Volume overload and pulmonary edema: 2/2 above, improved *Acute hypoxic respiratory failure: -now on room airfrom NRB in ED *Hyperkalemia: resolved *hyponatremia, chronic: improved *ESRD: Follows with Dr. Pineda *Nephrolithiasis: Large Left stone appears to be in inferior pelvis, no hydro -scheduled to see Dr. Roman 07/18 *Anemia, chronic: *HIV: *COPD (no home O2): *Chronic pain: Follows Dr. Dong *History of seizure related to PRES: *Depression/anxiety: * P: -Dr. Pineda for HD -electrolytes and diuretics per Neprho -f/u labs -O2 supp prn and home IH's -cont home BP meds with prn clonidine and IV hydralazine, any further adjustment per Nephr -cont home HIV meds and pain meds -cont home keppra - -ppx: heparin full code
[2019-07-11] MEDS ORDERED: JULUCA PO SCH (08:00)
[2019-07-11] MEDS: BUPRENORPHINE/NALOXONE 4MG/1MG ORAL FILM SL SCH ×2 (08:20→19:32)
[2019-07-11] MEDS: cloNIDine HCL 0.1 MG TABLET PO SCH ×3 (08:20→20:59)
[2019-07-11] MEDS: levETIRAcetam 500 MG TABLET PO SCH ×2 (08:20→20:59)
[2019-07-11] MEDS: OXYBUTYNIN CHLORIDE 5 MG TABLET PO SCH ×2 (08:20→21:06)
[2019-07-11] MEDS: DOCUSATE SODIUM 100 MG CAPSULE PO SCH ×2 (08:20→20:58)
[2019-07-11] MEDS: CARVEDILOL 12.5 MG TABLET PO SCH ×2 (08:20→17:08)
[2019-07-11] MEDS: hydrALAZINE 20 MG/ML VIAL IV PRN (08:21)
[2019-07-11] MEDS: CALCIUM ACETATE 667 MG CAPSULE PO SCH ×3 (08:21→17:08)
[2019-07-11] MEDS: HEPARIN 5,000 UNIT/ML VIAL SQ SCH ×2 (08:21→21:01)
[2019-07-11] MEDS: HYDROcodone/APAP 5/325MG TABLET PO PRN ×3 (08:21→19:31)
[2019-07-11] MEDS ORDERED: MAGNESIUM SULFATE 8.12 MEQ in DEXTROSE 5% IN WATER 50 ML IV ONE (08:55)
[2019-07-11] MEDS ORDERED: DULoxetine 30 MG CAPSULE PO SCH (09:00)
[2019-07-11] MEDS ORDERED: amLODIPine 10 MG TABLET PO SCH (09:00)
--- NOTE | 2019-07-11 09:18 | Nephrology Progress Note ---
Subjective Patient information: Note initiated : 07/11/19 at 9:15 am Service Date, if different from initiated Date: [] Patient: Shyann Ludwig 64 y/o F admitted on 07/10/19 for Shortness of breath. Chief Complaint: [] Has been feeling a little better. She has on and off left flank pain. Objective - Vital Signs Vital signs: Vital Signs Temp Pulse Resp BP Pulse Ox 07/11/19 08:13 67 0 L 93 07/11/19 08:01 69 7 L 173/83 97 07/11/19 07:05 69 11 L 94 07/11/19 07:01 70 12 158/84 94 07/11/19 06:29 69 10 L 94 07/11/19 06:01 69 0 L 152/82 94 07/11/19 05:01 72 12 139/71 94 07/11/19 04:01 71 12 139/77 94 07/11/19 04:00 98.7 F 07/11/19 03:01 66 10 L 138/74 95 07/11/19 02:01 72 12 124/73 94 07/11/19 01:01 79 10 L 108/68 93 07/11/19 00:47 79 13 90 07/11/19 00:11 96 07/11/19 00:01 85 16 137/92 96 07/10/19 23:48 87 13 133/82 90 07/10/19 23:47 98.6 F 86 17 133/82 90 07/10/19 23:01 82 23 H 136/82 97 07/10/19 22:52 93 07/10/19 22:12 100 07/10/19 22:10 97 07/10/19 22:00 91 H 21 140/78 96 07/10/19 21:01 86 12 143/84 97 07/10/19 20:28 88 L 07/10/19 20:27 88 L 07/10/19 20:25 91 07/10/19 20:24 89 L 07/10/19 20:01 90 22 130/73 92 07/10/19 20:00 98.7 F 91 H 22 130/73 92 07/10/19 19:38 94 07/10/19 19:01 96 H 24 H 144/83 96 07/10/19 17:01 112 H 15 137/75 95 07/10/19 16:24 106 H 24 H 95 07/10/19 16:01 110 H 143/86 99 07/10/19 15:46 112 H 155/87 98 07/10/19 15:31 112 H 15 139/78 97 07/10/19 15:16 113 H 23 H 128/81 95 07/10/19 15:08 97 07/10/19 15:01 118 H 12 135/77 93 07/10/19 14:46 114 H 24 H 118/75 97 07/10/19 14:31 20 134/82 07/10/19 14:16 21 146/73 07/10/19 14:10 18 126/80 07/10/19 13:46 28 H 155/78 07/10/19 13:31 21 142/88 07/10/19 13:16 21 144/84 07/10/19 13:02 117 H 24 H 153/89 96 07/10/19 12:46 107 H 25 H 131/76 96 07/10/19 12:18 98 H 36 H 98 07/10/19 12:16 98 H 26 H 142/72 97 07/10/19 12:15 97 H 27 H 141/74 96 07/10/19 12:01 101 H 29 H 126/70 96 07/10/19 12:00 97 F 99 H 126/70 07/10/19 11:46 104 H 36 H 119/76 99 07/10/19 11:45 106 H 119/76 07/10/19 11:31 117 H 22 130/78 98 07/10/19 11:30 118 H 130/78 07/10/19 11:29 96 07/10/19 11:16 108 H 18 142/81 97 07/10/19 11:15 107 H 142/81 07/10/19 11:03 99 H 18 164/100 95 07/10/19 11:01 95 H 20 177/114 95 07/10/19 11:00 95 H 177/114 07/10/19 10:47 95 H 14 175/113 94 07/10/19 10:46 94 H 16 177/110 93 07/10/19 10:45 95 H 175/113 07/10/19 10:31 101 H 28 H 145/74 99 07/10/19 10:30 94 H 145/74 07/10/19 10:16 95 H 24 H 170/94 97 07/10/19 10:15 92 H 170/94 07/10/19 10:01 90 16 159/98 100 07/10/19 10:00 91 H 159/98 07/10/19 09:46 88 18 148/88 100 07/10/19 09:45 97 H 148/88 07/10/19 09:31 87 16 150/93 98 07/10/19 09:30 88 150/93 07/10/19 09:16 97 H 22 151/93 100 Intake and Output 07/10/19 07/11/19 07/11/19 21:59 05:59 13:59 Intake Total 725 500 943 Output Total 0 0 Balance 725 500 943 Intake: IV 943 Dextrose 10%-Water IV Solution 943 1,000 ml @ 50 mls/hr IV .Q20H [facility] Rx#:[id number] Oral 725 500 Output: Void Amount 0 0 Other: Meal Dinner snack Percent of Meal Consumed 75% 100% Weight 109 lb 1 oz Intake & Output: Intake & Output 07/10/19 07/11/19 07/11/19 21:59 05:59 13:59 Intake Total 725 500 943 Output Total 0 0 Balance 725 500 943 Weight 109 lb 1 oz Intake: IV 943 Dextrose 10%-Water IV Solution 943 1,000 ml @ 50 mls/hr IV .Q20H [facility]GE Rx#:[id number] Oral 725 500 Output: Void Amount 0 0 Other: Meal Dinner snack Percent of Meal Consumed 75% 100% - General Appearance General appearance: appears started age EENT: ATNC Neck: no JVD Respiratory: rales Cardiology: diastolic murmur Gastrointestinal: hypoactive bowel sounds Neurologic: no focal deficit - Lab 07/11/19 04:05 07/11/19 04:05 Most recent lab results Calcium 7.7 mg/dl (8.6-10.4) L 07/11/19 04:05 Phosphorus 4.9 mg/dL (2.7-4.5) H 07/11/19 04:05 Magnesium 1.6 mg/dL (1.6-2.5) 07/11/19 04:05 Assessment and Plan (1) Congestive heart failure Status: Acute (2) End stage renal disease on dialysis Status: Chronic Comment: Admitted with fluid overload. Had dialysis and felt a lot better. She was tachycardic towards the end of dialysis which got better with clonidine patch. Will continue the patch and the clonidine as she is still very hypertensive. Will do ultrafiltration today.
[2019-07-11] MEDS: NICOTINE 14 MG PATCH TOPICAL SCH (10:31)
[2019-07-11 11:48] LABS: POC Blood Urea Nitrogen 30 mg/dl (8-23); POC CO2 28 mmol/L (22-30); POC Calcium, Ionized 0.96 mmol/L (1.16-1.32); POC Chloride 83 mmol/L (96-108); POC Creatinine 5.3 mg/dl (0.6-1.1); POC Glucose, Random 97 mg/dL (70-105); POC Potassium 3.7 mmol/L (3.3-5.1); POC Sodium 125 mmol/L (133-145)
[2019-07-11 12:51] LABS: Hematocrit 26.5 % (36.0-48.0); Hemoglobin 8.7 g/dL (12.0-15.0)
[2019-07-11] MEDS: CYCLOBENZAPRINE 10 MG TABLET PO PRN (14:09)
[2019-07-11] MEDS ORDERED: CALCIUM ACETATE 667 MG CAPSULE PO PRN (15:08)
[2019-07-11] MEDS ORDERED: CYCLOBENZAPRINE 10 MG TABLET PO PRN (15:08)
[2019-07-11] MEDS ORDERED: TAMSULOSIN 0.4 MG CAPSULE PO PRN (15:08)
[2019-07-11] MEDS ORDERED: SENNOSIDES 1 TABLET PO PRN (15:08)
[2019-07-11] MEDS ORDERED: POLYETHYLENE GLYCOL 3350 17 GM PACKET PO PRN (15:08)
[2019-07-11] MEDS ORDERED: hydrALAZINE 20 MG/ML VIAL IV PRN (15:08)
[2019-07-11] MEDS ORDERED: cloNIDine HCL 0.1 MG TABLET PO PRN (15:08)
[2019-07-11] MEDS ORDERED: ONDANSETRON 4 MG/2 ML VIAL IV PRN (15:08)
[2019-07-11] MEDS ORDERED: LACTULOSE 20 GM/30 ML ORAL.SOL PO PRN (15:08)
[2019-07-11] MEDS ORDERED: POTASSIUM CHLORIDE 20 MEQ TABLET PO PRN (15:08)
[2019-07-11] MEDS ORDERED: AMITRIPTYLINE 25 MG TABLET PO SCH (21:00)
[2019-07-12] MEDS: HYDROcodone/APAP 5/325MG TABLET PO PRN ×2 (04:15→09:14)
[2019-07-12] MEDS: 0.9 % SODIUM CHLORIDE 10 ML SYRINGE IV SCH (04:27)
[2019-07-12 05:46] LABS: Basophils # (Auto) 0 K/mcL (0.0-0.3); Basophils % (Auto) 0.6 % (0.0-2.0); Eosinophils # (Auto) 0.1 K/mcL (0.0-0.7); Eosinophils % (Auto) 1.1 % (0.0-7.0); Granulocytes % (Auto) 61.8 % (38.0-78.0); Hematocrit 22.8 % (36.0-48.0); Hemoglobin 7.7 g/dL (12.0-15.0); Lymphocytes # (Auto) 1.7 K/mcL (1.5-4.8); Lymphocytes % (Auto) 29.3 % (15.5-49.0); Mean Cell Volume 94.2 fL (80.0-100.0); Mean Corpuscular HGB Conc 33.7 g/dL (31.0-36.0); Mean Platelet Volume 6.6 fL (7.4-10.4); Monocytes # (Auto) 0.4 K/mcL (0.1-0.9); Monocytes % (Auto) 7.2 % (1.0-12.0); Platelet Count 160 K/mcL (140-440); RBC 2.42 M/mcL (4.00-5.20); Red Cell Distribution Width 14.8 % (11.5-14.5); WBC 5.9 K/mcL (4.5-11.0)
[2019-07-12 06:15] LABS: ALT/SGPT 12 U/l (0-40); AST/SGOT 14 U/l (0-37); Albumin 3.6 gm/dL (3.2-5.2); Albumin/Globulin Ratio 1.3 (1.0-2.3); Alkaline Phosphatase 82 U/L (39-117); Bilirubin,Direct < 0.2 mg/dL (0.0-0.3); Bilirubin,Total 0.4 mg/dL (0.0-1.0); Blood Urea Nitrogen 45 mg/dl (8-23); Calcium 7.8 mg/dl (8.6-10.4); Carbon Dioxide 24 mmol/L (22-30); Chloride 77 mmol/L (96-108); Globulin 2.7 gm/dL (2.2-3.7); Glomerular Filtration Rate 8; Glucose 83 mg/dL (70-105); Lactate Dehydrogenase 239 U/L (94-250); Phosphorous 6.1 mg/dL (2.7-4.5); Triglycerides 153 mg/dl (<150)
[2019-07-12] MEDS: BUPRENORPHINE/NALOXONE 4MG/1MG ORAL FILM SL SCH (06:39)
--- NOTE | 2019-07-12 07:06 | Discharge Summary ---
Medical - DS: Prov Patient information: Note initiated : 07/12/19 at 7:04 am Service Date, if different from initiated Date: [] Patient: Shyann Ludwig 64 y/o F admitted on 07/10/19 for Shortness of breath. Chief Complaint: [] Date of admission: 07/10/19 10:45 Discharge date: 07/12/19 Primary care physician: Rene Belcher DO Consults: 07/10/19 Consult to Physician [CONS] Stat Comment: Consulting Provider: Sina Ramirez Reason For Exam: Physician to Consult Consult to Physician [CONS] Stat Comment: Consulting Provider: Giancarlo Pineda Reason For Exam: Physician to Consult Medical - DS: Meds - Discharge Medications Prescriptions: cloNIDine TTS 2 [Catapres Tts 2] 1 patch TD WEEKLY #4 patch Transmission Status: Pending to [facility] Active and Home Medications: Home Medications amlodipine 10 mg tablet 10 mg PO DAILY 04/17/19 [History Confirmed 07/10/19 Last Taken Unknown] clonidine HCl 0.2 mg tablet 0.2 mg PO TID tab 04/17/19 [History Confirmed 07/10/19 Last Taken Unknown] levetiracetam 250 mg tablet 500 mg PO BID 04/17/19 [History Confirmed 07/10/19 Last Taken Unknown] dicyclomine 10 mg capsule 10 mg PO BID cap 05/09/19 [History Confirmed 07/10/19 Last Taken Unknown] duloxetine 30 mg capsule,delayed release 60 mg PO DAILY cap 05/09/19 [History Confirmed 07/10/19 Last Taken Unknown] Cefuroxime Axetil [Cefuroxime] 250 mg PO UD #10 tab 06/03/19 [Rx Confirmed 07/10/19 Last Taken Unknown] buprenorphine 2 mg-naloxone 0.5 mg sublingual film 1 film SUBLINGUAL BID #14 each 07/06/19 [Rx Confirmed 07/10/19 Last Taken Unknown] [Juluca] 1 tab PO DAILY 07/10/19 [History Confirmed 07/10/19 Last Taken Unknown] Amitriptyline [Elavil] 50 mg PO HS 07/10/19 [History Confirmed 07/10/19 Last Taken Unknown] Calcium Acetate [Phoslo] 2,001 mg PO DAILYP PRN 07/10/19 [History Confirmed 07/10/19 Last Taken Unknown] Calcium Acetate [Phoslo] 2,001 mg PO TIDCC 07/10/19 [History Confirmed 07/10/19 Last Taken Unknown] Carvedilol [Coreg] 25 mg PO BID 07/10/19 [History Confirmed 07/10/19 Last Taken Unknown] Cyclobenzaprine HCl 5 mg PO TIDP PRN 07/10/19 [History Confirmed 07/10/19 Last Taken Unknown] HYDROcodone/APAP 5/325MG [[place] 5-325Mg] 1 - 2 tab PO Q6HP PRN 07/10/19 [History Confirmed 07/10/19 Last Taken Unknown] Ondansetron [Zofran ODT] 4 mg SL Q6HP PRN 07/10/19 [History Confirmed 07/10/19 Last Taken Unknown] Oxybutynin Chloride [Ditropan] 5 mg PO BID 07/10/19 [History Confirmed 07/10/19 Last Taken Unknown] Potassium Chloride [Klor-Con M10] 20 meq PO QAMCC 07/10/19 [History Confirmed 07/10/19 Last Taken Unknown] Tamsulosin [Flomax] 0.4 mg PO DAILYP PRN 07/10/19 [History Confirmed 07/10/19 Last Taken Unknown] Tenofovir Disoproxil Fumarate 300 mg PO WEEKLY 07/10/19 [History Confirmed 07/10 Last Taken Unknown] Medical - DS: Hosp Hospital Course: Ms. Ludwig is a 64 year old F With presented to the ED with shortness of breath for several hours prior to visit the ED. last dialysis was Wednesday. Last dialysis was Wednesday. Denies chest or abdominal pain. She states she woke up feeling fine and was doing well at home until close to dinnertime. She became more short of breath. Denied any chest pain. Had weakness and some nausea. She is also found to be hyperkalemic as well as hyponatremic. Medications given for hyperkalemia and Dr. Pineda contacted from the ED for admission to ICU for acute dialysis. She is in the middle of her hemodialysis treatment and feeling much better. States she is been taking all her medications appropriately has missed any doses. She went to her dialysis treatment on Wednesday. Also found to be hypertensive. She says her systolic blood pressure runs 150s to 190s at home 07/11 Slept okay when she finally fell asleep. Breathing is much better today. No cough this morning. She has a bit of a headache. Blood pressure improving on the clonidine patch. Dialysis today. 07/12 Doing well. Blood pressure much improved on clonidine patch. Stable for discharge. Will get hemodialysis today outpatient Discharge diagnosis: Hypertensive emergency pulmonary edema volume overload respiratory failure Secondary discharge diagnosis: Acute hypoxic respiratory failure hyperkalemia hyponatremia nephrolithiasis anemia HIV COPD chronic pain history of seizures depression anxiety - Time Spent with Patient Total time spent providing and/or coordinating discharge services: Greater than 30 minutes Medical - DS: Exam - Constitutional Vitals: Vital Signs Temp Pulse Pulse Resp BP BP Pulse Ox 07/12/19 03:52 97.8 F 67 14 150/87 95 07/11/19 23:04 98.1 F 70 14 140/85 98 07/11/19 19:15 98.5 F 86 12 147/83 95 07/11/19 16:00 98.3 F 18 137/85 94 07/11/19 15:01 77 133/77 98 07/11/19 15:00 75 99 07/11/19 14:46 73 121/71 98 07/11/19 14:32 74 138/87 100 07/11/19 14:29 96 07/11/19 14:19 72 97 07/11/19 14:16 67 123/80 96 07/11/19 14:01 70 130/91 99 07/11/19 13:46 70 11 L 132/83 99 07/11/19 13:41 70 11 L 99 07/11/19 13:31 63 118/73 92 07/11/19 13:16 66 14 109/69 94 07/11/19 13:01 65 16 111/65 93 07/11/19 12:46 58 L 14 118/69 93 07/11/19 12:31 16 101/74 07/11/19 12:24 105/65 07/11/19 12:18 97.3 F 61 95/65 07/11/19 12:16 7 L 95/65 07/11/19 12:15 12 07/11/19 12:01 0 L 92/62 07/11/19 12:00 60 92/69 07/11/19 11:46 11 L 107/69 07/11/19 11:45 61 107/69 07/11/19 11:31 0 L 101/65 07/11/19 11:30 65 101/65 07/11/19 11:28 19 101/63 07/11/19 11:22 97.7 F 69 101/65 07/11/19 11:20 14 07/11/19 11:16 18 95/68 07/11/19 11:14 15 105/68 07/11/19 11:01 0 L 122/79 07/11/19 10:08 91 H 16 98 07/11/19 10:01 82 15 131/81 97 07/11/19 08:40 76 173/94 100 07/11/19 08:13 67 0 L 93 07/11/19 08:10 96 07/11/19 08:01 69 7 L 173/83 97 07/11/19 07:21 60 95/65 07/11/19 07:05 69 11 L 94 Intake and Output 07/11/19 07/12/19 07/12/19 21:59 05:59 13:59 Intake Total 200 120 Output Total 125 Balance 75 120 Intake: Nourishment/Supplement quantity 0 (ml) Oral 200 120 Output: Void Amount 125 Other: Meal Dinner soup, crackers Percent of Meal Consumed 75% 100% Feeding Ability Independent Nourishment/Supplement name Nephro Urine Appearance Cloudy Sediment Urine Color Dark Yellow Urine Odor Strong # Voids 1 Weight 50.258 kg Medical - DS: Data Labs on day of discharge: Labs from last 24 hours 07/12/19 07/12/19 07/11/19 04:32 04:32 12:18 WBC 5.9 RBC 2.42 L Hgb 7.7 L 8.7 L Hct 22.8 L 26.5 L POC Hct MCV 94.2 MCH 31.7 MCHC 33.7 RDW 14.8 H Plt Count 160 MPV 6.6 L Gran % 61.8 Lymph % (Auto) 29.3 [place] % (Auto) 7.2 Eos % (Auto) 1.1 Baso % (Auto) 0.6 Gran # 3.6 Lymph # (Auto) 1.7 [place] # (Auto) 0.4 Eos # (Auto) 0.1 Baso # (Auto) 0 POC Sodium Sodium 119 L* POC Potassium Potassium 4.9 POC Chloride Chloride 77 L Carbon Dioxide 24 POC Total CO2 Anion Gap 18.0 H POC BUN BUN 45 H Creatinine 5.4 H* POC Creatinine GFR Calculation 8 Glucose 83 POC Glucose Uric Acid 4.0 Calcium 7.8 L POC WB Ioniz Calcium Phosphorus 6.1 H* Magnesium 1.7 Total Bilirubin 0.4 Direct Bilirubin < 0.2 GGT 11 AST 14 ALT 12 Alkaline Phosphatase 82 Lactate Dehydrogenase 239 Total Protein 6.3 Albumin 3.6 Globulin 2.7 Albumin/Globulin Ratio 1.3 Triglycerides 153 H 07/11/19 07/11/19 11:38 04:05 WBC RBC Hgb Hct POC Hct 24.0 L MCV MCH MCHC RDW Plt Count MPV Gran % Lymph % (Auto) [place] % (Auto) Eos % (Auto) Baso % (Auto) Gran # Lymph # (Auto) [place] # (Auto) Eos # (Auto) Baso # (Auto) POC Sodium 125 L Sodium 130 L POC Potassium 3.7 Potassium 3.7 POC Chloride 83 L Chloride 86 L Carbon Dioxide 26 POC Total CO2 28 Anion Gap 18.0 H POC BUN 30 H BUN 29 H Creatinine 4.1 H POC Creatinine 5.3 H* GFR Calculation 11 Glucose 106 H POC Glucose 97 Uric Acid 2.9 Calcium 7.7 L POC WB Ioniz Calcium 0.96 L Phosphorus 4.9 H Magnesium 1.6 Total Bilirubin 0.3 Direct Bilirubin < 0.2 GGT 13 AST 15 ALT 15 Alkaline Phosphatase 83 Lactate Dehydrogenase 226 Total Protein 6.4 Albumin 3.7 Globulin 2.7 Albumin/Globulin Ratio 1.4 Triglycerides 66 Medical - DS: A/P - Patient/Caregiver Discharge Instructions Activity: increase activity as tolerated Diet: Renal Other Amb Orders: Walker Location: None Selected - Follow up Plan Follow up with: Rene Belcher DO [Primary Care Provider] - 08/22/19 3:30 pm ([facility] Option 1 then Option 2. Call on July 22 to set up your ride for your appointment August 22.) Giancarlo Pineda MD [Physician] - (Continue with your current dialysis schedule.) Emory Roman MD [Physician] - 07/18/19 1:30 pm (Continue with your previously scheduled appointment.) Disposition: Home Health Service Care Plan Goals: This discharge packet is provided to you to help keep you informed about your care. We want to ensure you get everything you need when you go home. You will also be receiving a call from us in a few days to follow up with you and see how you are doing since your discharge. This gives us a chance to listen to any concerns you maybe experiencing since you were discharged or any additional needs you may have, as well as providing us feedback on your care experience. We strive to always provide excellent care and thank you for your feedback and for choosing [facility]. Prognosis: Fair Rehab Potential: Fair Overall status at discharge: patient is back to baseline
[2019-07-12] MEDS ORDERED: JULUCA PO SCH (08:00)
[2019-07-12] MEDS ORDERED: amLODIPine 10 MG TABLET PO SCH (09:00)
[2019-07-12] MEDS ORDERED: DULoxetine 30 MG CAPSULE PO SCH (09:00)
[2019-07-12] MEDS: CALCIUM ACETATE 667 MG CAPSULE PO SCH (09:11)
[2019-07-12] MEDS: CARVEDILOL 12.5 MG TABLET PO SCH (09:12)
[2019-07-12] MEDS: cloNIDine HCL 0.1 MG TABLET PO SCH (09:13)
[2019-07-12] MEDS: levETIRAcetam 500 MG TABLET PO SCH (09:13)
[2019-07-12] MEDS: OXYBUTYNIN CHLORIDE 5 MG TABLET PO SCH (09:13)
[2019-07-12] MEDS: DOCUSATE SODIUM 100 MG CAPSULE PO SCH (09:17)
--- NOTE | 2019-07-12 09:22 | Nephrology Progress Note ---
Subjective Patient information: Note initiated : 07/12/19 at 9:21 am Service Date, if different from initiated Date: [] Patient: Shyann Ludwig 64 y/o F admitted on 07/10/19 for Shortness of breath. Chief Complaint: [] Feels a lot better. No cough. Still drinks a fair amount of water. Objective - Vital Signs Vital signs: Vital Signs Temp Pulse Pulse Resp BP BP Pulse Ox 07/12/19 08:00 97.3 F 67 18 182/97 98 07/12/19 03:52 97.8 F 67 14 150/87 95 07/11/19 23:04 98.1 F 70 14 140/85 98 07/11/19 19:15 98.5 F 86 12 147/83 95 07/11/19 16:00 98.3 F 18 137/85 94 07/11/19 15:01 77 133/77 98 07/11/19 15:00 75 99 07/11/19 14:46 73 121/71 98 07/11/19 14:32 74 138/87 100 07/11/19 14:29 96 07/11/19 14:19 72 97 07/11/19 14:16 67 123/80 96 07/11/19 14:01 70 130/91 99 07/11/19 13:46 70 11 L 132/83 99 07/11/19 13:41 70 11 L 99 07/11/19 13:31 63 118/73 92 07/11/19 13:16 66 14 109/69 94 07/11/19 13:01 65 16 111/65 93 07/11/19 12:46 58 L 14 118/69 93 07/11/19 12:31 16 101/74 07/11/19 12:24 105/65 07/11/19 12:18 97.3 F 61 95/65 07/11/19 12:16 7 L 95/65 07/11/19 12:15 12 07/11/19 12:01 0 L 92/62 07/11/19 12:00 60 92/69 07/11/19 11:46 11 L 107/69 07/11/19 11:45 61 107/69 07/11/19 11:31 0 L 101/65 07/11/19 11:30 65 101/65 09/24/19 11:28 19 101/63 09/24/19 11:22 97.7 F 69 101/65 07/11/19 11:20 14 07/11/19 11:16 18 95/68 07/11/19 11:14 15 105/68 07/11/19 11:01 0 L 122/79 07/11/19 10:08 91 H 16 98 07/11/19 10:01 82 15 131/81 97 Intake and Output 07/11/19 07/12/19 07/12/19 21:59 05:59 13:59 Intake Total 200 120 Output Total 125 Balance 75 120 Intake: Nourishment/Supplement quantity 0 (ml) Oral 200 120 Output: Void Amount 125 Other: Meal Dinner soup, crackers Percent of Meal Consumed 75% 100% Feeding Ability Independent Nourishment/Supplement name Nephro Urine Appearance Cloudy Sediment Urine Color Dark Yellow Urine Odor Strong # Voids 1 Weight 110 lb 12.8 oz Intake & Output: Intake & Output 07/11/19 07/12/19 07/12/19 21:59 05:59 13:59 Intake Total 200 120 Output Total 125 Balance 75 120 Weight 110 lb 12.8 oz Intake: Nourishment/Supplement quantity 0 (ml) Oral 200 120 Output: Void Amount 125 Other: Meal Dinner soup, crackers Percent of Meal Consumed 75% 100% Feeding Ability Independent Nourishment/Supplement name Nephro Urine Appearance Cloudy Sediment Urine Color Dark Yellow Urine Odor Strong # Voids 1 - General Appearance General appearance: appears started age EENT: ATNC Neck: no JVD Cardiology: diastolic murmur Gastrointestinal: hypoactive bowel sounds Integumentary: no rash Musculoskeletal: no deformities - Lab 07/12/19 04:32 07/12/19 04:32 Most recent lab results Calcium 7.8 mg/dl (8.6-10.4) L 07/12/19 04:32 Phosphorus 6.1 mg/dL (2.7-4.5) H* 07/12/19 04:32 Magnesium 1.7 mg/dL (1.6-2.5) 07/12/19 04:32 Assessment and Plan (1) Congestive heart failure Status: Acute (2) End stage renal disease on dialysis Status: Chronic Comment: Admitted with fluid overload. Had dialysis and felt a lot better. She was tachycardic towards the end of dialysis which got better with clonidine patch. Will continue the patch and the clonidine as she is still very hypertensive. Will be discharged and we will continue additional fluid removal at dialysis.
[2019-07-12] MEDS: HEPARIN 5,000 UNIT/ML VIAL SQ SCH (09:33)
[2019-07-12] MEDS ORDERED: DARBEPOETIN ALFA 100 MCG/ML VIAL SQ ONE (10:00)
[2019-07-12] MEDS ORDERED: NICOTINE 14 MG PATCH TOPICAL SCH (10:00)
== END 2019-07-12 11:11 | disposition home health service (06) | DRG 304 ==
LOC: ICU 02:25 → ED 02:25 → ICU 05:45 → MEDSUR 07-11 15:30
PROVIDERS: ADMIT Internal Medicine; ATTEND Internal Medicine

== ENCOUNTER 2019-11-12 12:05 | Inpatient (IN) ==
--- NOTE | 2019-11-12 12:40 | Internal Med History&Physical ---
Medical - H&P: [facility] Patient information: Note initiated : 11/12/19 at 12:35 pm Service Date, if different from initiated Date: [] Patient: Shyann Ludwig a 64 y/o F admitted on for Dialysis. Chief Complaint: [] History of present illness: Ms. Ludwig is a 64 year old F With presented to [facility] ED with shortness of breath for 3 days. She is also had increasing cough. Last dialysis was Wednesday. Denies chest or abdominal pain. Patient states that 3 days ago she developed a cough with some sinus drainage rhinorrhea tickling her throat and felt like her cough was probably becoming deeper. She had increasing shortness of breath. He also complains of some dysuria. Her cough is productive of clear and yellow sputum Work-up revealed that she appeared to be volume overloaded. She is also found to be hypertensive and mildly hyperkalemic. She is also diagnosed with UTI. She is also hyponatremic. Dr. Pineda was contacted and was felt [facility]. Patient states her blood pressure systolic runs between 140 and 200 States she is been taking all her medications appropriately has missed any doses. She went to her dialysis treatment on Wednesday. Review of Systems: Pertinent positives as above. Denies headache/fever/chills/vomiting/chest or abdominal pain/cough/diarrhea. 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) Tobacco abuse (Chronic) Depression (Chronic) Opioid dependence (Chronic) Upper GI bleed (Chronic) Aspiration pneumonia (Chronic) Hyperphosphatemia (Chronic) Hyperkalemia (Chronic) Volume overload (Chronic) Metabolic acidosis (Chronic) Posterior reversible encephalopathy syndrome (Chronic) History of seizures (Chronic 09/2018) Anemia in chronic kidney disease (CKD) (Chronic) End stage renal disease on dialysis (Chronic) Migraines (Chronic) Renal disease (Chronic) Chronic GERD (Chronic) COPD (chronic obstructive pulmonary disease) (Chronic) Chronic pain (Chronic) Hemodialysis status (Chronic) N&V (nausea and vomiting) (Chronic) Arthritis (Chronic) HIV (human immunodeficiency virus infection) (Chronic 2000) HTN (hypertension) (Chronic) Past Surgical History (Last Reviewed 07/06/19 @ 11:16 by Karly Chun CMA) History of gastric bypass (Chronic) History of hysterectomy (Chronic ~1991) History of peritoneal dialysis (Chronic) Status post biopsy of kidney (Chronic ~2012) Status post cystourethroscopy with dilation of urethral stricture (Chronic ~06/01/19) Family History (Last Reviewed 07/06/19 @ 11:16 by Karly Chun CMA) Mother Heart disease Breast cancer, Onset Age: 62 Arthritis High blood pressure Migraines Thyroid disease Father Stomach cancer Heart disease Arthritis High blood pressure Heart attack Unknown Bruising Sister Arthritis Thyroid disease Brother Arthritis Opiate addiction Grandmother Dementia Daughter Migraines Family/Other Opiate addiction Other Family history of breast cancer Family history- stomach cancer Social History (Last Updated 07/06/19 @ 11:33 by Andie Dong DO) Uses E cigarettes Denies alcohol use Smokes marijuana Uses walker to ambulate Lives with sister Medical - H&P: Meds Home Medications Medication Instructions Recorded Confirmed Type amlodipine 10 mg tablet 10 mg PO DAILY 04/17/19 11/01/19 History Amitriptyline [Elavil] 50 mg PO HS 07/10/19 11/01/19 History Calcium Acetate [Phoslo] 2,001 mg PO DAILYP PRN 07/10/19 11/01/19 History Carvedilol [Coreg] 25 mg PO BID 07/10/19 11/01/19 History Ondansetron [Zofran ODT] 4 mg SL Q6HP PRN 07/10/19 11/01/19 History cloNIDine TTS 2 [Catapres Tts 2] 1 patch TD WEEKLY #4 patch 07/12/19 11/01/19 Rx clonidine HCl 0.2 mg tablet 0.2 mg PO TID tab 08/22/19 11/01/19 History dicyclomine 10 mg capsule 10 mg PO DAILY cap 08/22/19 11/01/19 History dolutegravir 50 mg-rilpivirine 25 1 tab PO DAILY #90 tab 08/22/19 11/01/19 Rx mg tablet duloxetine 30 mg capsule,delayed 90 mg PO DAILY cap 08/22/19 11/01/19 History release famotidine 40 mg tablet 40 mg PO BID 08/22/19 11/01/19 History furosemide 80 mg tablet 80 mg PO QDAY PRN #30 tab 08/22/19 11/01/19 Rx ipratropium bromide 17 1 puff INHALATION BID g 08/22/19 11/01/19 History mcg/actuation HFA aerosol inhaler lisinopril 40 mg tablet 40 mg PO DAILY 08/22/19 11/01/19 History loperamide 2 mg capsule 2 mg PO Q2-4H 08/22/19 11/01/19 History tenofovir disoproxil fumarate 300 300 mg PO WEEKLY #12 tab 08/22/19 11/01/19 Rx mg tablet Cyclobenzaprine HCl 10 mg PO TIDP PRN 09/05/19 11/01/19 History levetiracetam 250 mg tablet 500 mg PO BID #360 tab 10/04/19 11/01/19 Rx Cephalexin [Keflex] 500 mg PO BID #10 cap 10/26/19 11/01/19 Rx oxycodone 20 mg tablet 20 mg PO Q8H PRN #7 tab 10/31/19 11/01/19 Rx Allergies Allergy/AdvReac Type Severity Reaction Status Date / Time dihydroergotamine AdvReac Intermediate Nausea Verified 11/01/19 09:57 ketorolac [From Toradol] AdvReac Mild Itching Verified 11/01/19 09:57 Medical - H&P: Exam - Constitutional Exam: General: Alert, Awake, No acute Distress Eyes/N/T: EOMI, PEERL, Head/Neck: neck supple, normocephalic atraumatic CV: RRR, 1/6 SM, normal s1/s2 Pulm: bibase rales, no wheezing Abd: soft, nontender, +BS x4 Ext: no clubbing/cyanosis/edema Neuro: Alert, no focal deficits, moves all extremities, CN 2-12 grossly intact, symmetrical strength b/l upper/lower, sensations intact b/l upper/lower Skin: warm/dry Medical - H&P: A/P - Narrative A/P Narrative: A: *Hypertensive emergency (h/o HTN): *Volume overload: 2/2 above *URI: *UTI: *Hyperkalemia: *hyponatremia, chronic: *ESRD: Follows with Dr. Pineda *Anemia, chronic: *HIV: *COPD (has not been on @home): *Chronic pain: *History of seizure related to PRES: *Depression/anxiety: P: -Dr. Pineda for emergent HD -electrolytes and diuretics per Nephro -O2 supp prn and home IH's -cont home BP meds with prn clonidine and IV hydralazine, defer HTN mgmnt to Nephrology -rocephin pending UC -cont home HIV meds and pain meds -cont home keppra - -ppx: heparin
[2019-11-12] MEDS ORDERED: IPRATROPIUM/ALBUTEROL 3 ML AMPUL.NEB NEB PRN (14:07)
[2019-11-12] MEDS ORDERED: POLYETHYLENE GLYCOL 3350 17 GM PACKET PO PRN (14:07)
[2019-11-12] MEDS ORDERED: SENNOSIDES 1 TABLET PO PRN (14:07)
[2019-11-12] MEDS ORDERED: MAGNESIUM SULFATE 2 GM/50 ML BAG IV PRN (14:07)
[2019-11-12] MEDS ORDERED: POTASSIUM CHLORIDE 40 MEQ in DEXTROSE 5% IN WATER 500 ML IV PRN (14:07)
[2019-11-12] MEDS ORDERED: POTASSIUM CHLORIDE 20 MEQ TABLET PO PRN ×2 (14:07)
[2019-11-12] MEDS ORDERED: cloNIDine HCL 0.1 MG TABLET PO PRN (14:17)
[2019-11-12] MEDS: hydrALAZINE 20 MG/ML VIAL IV PRN ×2 (14:28→17:25)
[2019-11-12] MEDS: ONDANSETRON 4 MG/2 ML VIAL IV PRN ×2 (14:59→20:53)
[2019-11-12] MEDS: cefTRIAXone 1 GM VIAL IV SCH (16:13)
[2019-11-12] MEDS: oxyCODONE HCL 5 MG TABLET PO PRN ×2 (16:21→20:53)
[2019-11-12] MEDS ORDERED: LOPERAMIDE 2 MG CAPSULE PO PRN (16:25)
[2019-11-12] MEDS ORDERED: CYCLOBENZAPRINE 10 MG TABLET PO PRN (16:25)
[2019-11-12] MEDS ORDERED: FUROSEMIDE 80 MG TABLET PO PRN (16:25)
[2019-11-12] MEDS ORDERED: oxyCODONE HCL 5 MG TABLET PO PRN (16:25)
[2019-11-12] MEDS ORDERED: OXYBUTYNIN CHLORIDE 5 MG TABLET PO PRN (16:25)
[2019-11-12] MEDS: ACETAMINOPHEN 325 MG TABLET PO PRN (17:24)
[2019-11-12] MEDS ORDERED: diphenhydrAMINE 25 MG CAPSULE PO PRN (23:26)
[2019-11-12] MEDS ORDERED: diphenhydrAMINE 25 MG CAPSULE ONE (23:30)
[2019-11-13] MEDS: levETIRAcetam 500 MG TABLET PO SCH ×3 (01:13→22:29)
[2019-11-13] MEDS: FAMOTIDINE 20 MG TABLET PO SCH ×3 (01:13→22:28)
[2019-11-13] MEDS: cloNIDine HCL 0.1 MG TABLET PO SCH ×4 (01:13→22:30)
[2019-11-13] MEDS: AMITRIPTYLINE 25 MG TABLET PO SCH (01:14)
[2019-11-13] MEDS: CARVEDILOL 12.5 MG TABLET PO SCH ×3 (01:14→22:30)
[2019-11-13] MEDS: DOCUSATE SODIUM 100 MG CAPSULE PO SCH ×3 (01:14→22:28)
[2019-11-13] MEDS: LISINOPRIL 20 MG TABLET PO SCH ×2 (01:15→22:28)
[2019-11-13] MEDS: amLODIPine 10 MG TABLET PO SCH ×2 (01:15→22:29)
[2019-11-13] MEDS: IPRATROPIUM BROMIDE PO SCH ×3 (01:15→23:48)
[2019-11-13] MEDS: HEPARIN 5,000 UNIT/ML VIAL SQ SCH ×3 (01:15→22:30)
[2019-11-13] MEDS: 0.9 % SODIUM CHLORIDE 10 ML SYRINGE IV SCH ×4 (01:20→22:30)
[2019-11-13] MEDS: CALCIUM ACETATE 667 MG CAPSULE PO PRN (01:32)
[2019-11-13] MEDS: ACETAMINOPHEN 325 MG TABLET PO PRN ×2 (02:53→09:38)
[2019-11-13] MEDS: oxyCODONE HCL 5 MG TABLET PO PRN ×3 (02:54→19:31)
[2019-11-13] MEDS: ONDANSETRON 4 MG/2 ML VIAL IV PRN ×4 (03:43→19:37)
[2019-11-13 07:13] LABS: ALT/SGPT 12 U/l (0-40); AST/SGOT 21 U/l (0-37); Albumin 3.7 gm/dL (3.2-5.2); Albumin/Globulin Ratio 1.1 (1.0-2.3); Alkaline Phosphatase 113 U/L (39-117); Bilirubin,Direct < 0.2 mg/dL (0.0-0.3); Bilirubin,Total 0.4 mg/dL (0.0-1.0); Blood Urea Nitrogen 23 mg/dl (8-23); Calcium 8.8 mg/dl (8.6-10.4); Carbon Dioxide 20 mmol/L (22-30); Chloride 88 mmol/L (96-108); Globulin 3.5 gm/dL (2.2-3.7); Glomerular Filtration Rate 13; Glucose 93 mg/dL (70-105); Lactate Dehydrogenase 386 U/L (94-250); Phosphorous 5.8 mg/dL (2.7-4.5); Triglycerides 81 mg/dl (<150); Uric Acid 2.6 mg/dL (2.5-8.0)
--- NOTE | 2019-11-13 07:44 | Internal Med Progress Note ---
Medical - PN: Subj Patient information: Note initiated : 11/13/19 at 7:42 am Service Date, if different from initiated Date: [] Patient: Shyann Ludwig a 64 y/o F admitted on 11/12/19 for Dialysis. Chief Complaint: [] Interval history: Ms. Ludwig is a 64 year old F With presented to [facility] ED with shortness of breath for 3 days. She is also had increasing cough. Last dialysis was Wednesday. Denies chest or abdominal pain. Patient states that 3 days ago she developed a cough with some sinus drainage rhinorrhea tickling her throat and felt like her cough was probably becoming deeper. She had increasing shortness of breath. He also complains of some dysuria. Her cough is productive of clear and yellow sputum Work-up revealed that she appeared to be volume overloaded. She is also found to be hypertensive and mildly hyperkalemic. She is also diagnosed with UTI. She is also hyponatremic. Dr. Pineda was contacted and was felt that she should be transferred over to [facility] for acute dialysis. Patient states her blood pressure systolic runs between 140 and 200 States she is been taking all her medications appropriately has missed any doses. She went to her dialysis treatment on Wednesday. 11/13 Has a headache. Has some nausea vomiting last night which is common for her. Has generalized pain. Occasional cough. Shortness of breath is present but better than yesterday. Review of Systems: denies headache/fever/chills/chest or abdominal pain/diarrhea. Otherwise see above. - Constitutional Vitals: Vital Signs Temp Pulse Resp BP Pulse Ox 97.9 F 82 16 125/79 96 11/13/19 07:22 11/13/19 07:24 11/13/19 07:24 11/13/19 07:22 11/13/19 07:24 Period Temp Pulse Resp BP Sys/Hanson Pulse Ox Last 24 Hr 97.6 F-99.1 F 75-128 16-22 107-216/67-115 93-97 Intake and Output 11/12/19 11/13/19 11/13/19 21:59 05:59 13:59 Intake Total 300 590 Output Total 4300 Balance 300 -3710 Weight 50.122 kg Intake & Output: Intake & Output 11/12/19 11/13/19 11/13/19 21:59 05:59 13:59 Intake Total 300 590 Output Total 4300 Balance 300 -3710 Weight 50.122 kg Intake: Oral 300 590 Output: Hemodialysis UF 4300 Other: Meal Lunch Percent of Meal Consumed 50% Feeding Ability Assist with Tray Set Up Exam: General: Alert, Awake, No acute Distress Eyes/N/T: EOMI, , Head/Neck: neck supple, CV: RRR, 1/6 SM, Pulm: bibase rales mild, no wheezing Abd: soft, nontender, +BS x4 Ext: no clubbing/cyanosis/edema Neuro: Alert, no focal deficits, moves all extremities, Skin: warm/dry Medical - PN: Obj Da - Labs CBC & Chem 7: 11/13/19 05:40 Labs: Abnormal Lab Results 11/13/19 05:40 Sodium 128 L Chloride 88 L Carbon Dioxide 20 L Anion Gap 20.0 H Creatinine 3.5 H Phosphorus 5.8 H Lactate Dehydrogenase 386 H Meds: Medications Acetaminophen (Tylenol) 650 mg PO Q6HP PRN PRN Reason: PAIN/FEVER > 101 Last Admin: 11/13/19 02:53 Dose: 650 mg Documented by: Albuterol/Ipratropium (Duoneb) 3 ml NEB Q4HP PRN PRN Reason: Shortness Of Breath Amitriptyline HCl (Elavil) 50 mg PO HS [facility] Last Admin: 11/13/19 01:14 Dose: 50 mg Documented by: Amlodipine Besylate (Norvasc) 10 mg PO HS [facility] Last Admin: 11/13/19 01:15 Dose: 10 mg Documented by: Calcium Acetate (Phoslo) 2,001 mg PO DAILYP PRN PRN Reason: SNACKS Last Admin: 11/13/19 01:32 Dose: 2,001 mg Documented by: Carvedilol (Coreg) 25 mg PO BID [facility] Last Admin: 11/13/19 01:14 Dose: 25 mg Documented by: Ceftriaxone Sodium (Rocephin) 1 gm IV DAILY [facility]; Protocol Last Admin: 11/12/19 16:13 Dose: Not Given Documented by: Clonidine HCl (Catapres) 0.1 mg PO QIDP PRN PRN Reason: sbp>160 Last Admin: 11/12/19 16:21 Dose: 0.1 mg Documented by: Clonidine HCl (Catapres) 0.2 mg PO TID [facility] Last Admin: 11/13/19 01:13 Dose: 0.2 mg Documented by: Clonidine HCl (Catapres Tts 2) 1 patch TD Fr@1000 [facility] Cyclobenzaprine HCl (Flexeril) 5 mg PO TIDP PRN PRN Reason: Muscle Spasm Dicyclomine HCl (Bentyl) 10 mg PO DAILY [facility] Diphenhydramine HCl (Benadryl) 25 mg PO Q4-6HP PRN PRN Reason: Allergic Symptoms Last Admin: 11/12/19 23:31 Dose: 25 mg Documented by: Docusate Sodium (Colace) 100 mg PO BID [facility] Last Admin: 11/13/19 01:14 Dose: 100 mg Documented by: Duloxetine HCl (Cymbalta) 90 mg PO DAILY [facility] Famotidine (Pepcid) 40 mg PO BID [facility] Last Admin: 11/13/19 01:13 Dose: 40 mg Documented by: Furosemide (Lasix) 80 mg PO DAILYP PRN PRN Reason: edema Heparin Sodium (Porcine) (Heparin) 5,000 unit SQ Q12 [facility] Last Admin: 11/13/19 01:15 Dose: 5,000 unit Documented by: Hydralazine HCl (Apresoline) 0 mg IV Q2HP PRN PRN Reason: Hypertension Last Admin: 11/12/19 17:25 Dose: 10 mg Documented by: Potassium Chloride 40 meq/ (Dextrose) 520 mls @ 130 mls/hr IV UD PRN PRN Reason: Potassium < 3 Magnesium Sulfate (Magnesium Sulfate) 2 gm in 50 mls @ 50 mls/hr IV UD PRN PRN Reason: Magnesium </= 1.6 Levetiracetam (Keppra) 1,500 mg PO BID [facility] Last Admin: 11/13/19 01:13 Dose: 1,500 mg Documented by: Lisinopril (Zestril) 40 mg PO HS [facility] Last Admin: 11/13/19 01:15 Dose: 40 mg Documented by: Loperamide HCl (Imodium) 2 mg PO Q2-4HP PRN PRN Reason: Loose Stool Ondansetron HCl (Zofran) 4 mg IV Q4HP PRN PRN Reason: Nausea And Vomiting Last Admin: 11/13/19 03:43 Dose: 4 mg Documented by: Oxybutynin Chloride (Ditropan) 5 mg PO Q8HP PRN PRN Reason: Urinary urgency Oxycodone HCl (Roxicodone) 20 mg PO Q6-8HP PRN; Protocol PRN Reason: Per Pain Protocol Last Admin: 11/13/19 02:54 Dose: 20 mg Documented by: Ipratropium [place] [Atrovent Hfa] 1 Puff Inhaler 1 dose PO BID [facility] Last Admin: 11/13/19 01:15 Dose: Not Given Documented by: Miguelito (Dolutegravir 50 Mg/Rilpivirine 25 Mg) Tablet 1 dose PO [facility] Tenofovir Disoproxil Fumarate 300 Mg Tablet 1 dose PO Fr@0900 [facility] Polyethylene Glycol (Miralax) 17 gm PO DAILYP PRN PRN Reason: Constipation Potassium Chloride (Kdur) 40 meq PO UD PRN PRN Reason: Potssium is 3-3.5 Potassium Chloride (Kdur) 40 meq PO UD PRN PRN Reason: Potassium < 3 Senna (Senokot) 2 tab PO DAILYP PRN PRN Reason: Constipation Sodium Chloride (Saline Flush) 10 ml IV Q8 [facility] Last Admin: 11/13/19 06:03 Dose: 10 ml Documented by: Medical - PN: A/P - Time Spent With Patient Total time spent is greater than 50% in coordination of care (as documented) at patient's floor/unit and/or counseling patient: - Narrative A/P Narrative: A: *Hypertensive emergency (h/o HTN): improved *Volume overload: 2/2 above *dyspnea: improved *URI: *UTI: *Hyperkalemia: improved *hyponatremia, chronic: *ESRD: Follows with Dr. Pineda *Anemia, chronic: *HIV: *COPD (has not been on @home): *Chronic pain: *History of seizure related to PRES: *Depression/anxiety: P: -Dr. Pineda for emergent HD, s/p HD yesterday -electrolytes and diuretics per Nephro -O2 supp prn and home IH's -cont home BP meds with prn clonidine and IV hydralazine, defer HTN mgmnt to Nephrology -rocephin pending UC -cont home HIV meds and pain meds -cont home keppra - -ppx: heparin
[2019-11-13] MEDS: cefTRIAXone 1 GM VIAL IV SCH (09:35)
[2019-11-13] MEDS: DULoxetine 30 MG CAPSULE PO SCH (09:36)
[2019-11-13] MEDS: JULUCA PO SCH (09:38)
[2019-11-13] MEDS: tiZANidine 4 MG TABLET PO SCH ×3 (10:41→22:29)
[2019-11-13] MEDS: DICYCLOMINE 20 MG TABLET PO SCH (10:41)
--- NOTE | 2019-11-13 11:11 | Discharge Summary ---
Medical - DS: Prov Patient information: Note initiated : 11/13/19 at 11:10 am Service Date, if different from initiated Date: [] Patient: Shyann Ludwig 64 y/o F admitted on 11/12/19 for Dialysis. Chief Complaint: [] Date of admission: 11/12/19 13:07 Discharge date: 11/14/19 Primary care physician: Rene Belcher DO Consults: 11/12/19 14:07 Consult to Physician [CONS] Routine Comment: Consulting Provider: Giancarlo Pineda Reason For Exam: Physician to Consult Medical - DS: Meds - Discharge Medications Active and Home Medications: Home Medications amlodipine 10 mg tablet 10 mg PO HS 04/17/19 [History Confirmed 11/12/19 Last Taken 11/11/19] Amitriptyline [Elavil] 50 mg PO HS 07/10/19 [History Confirmed 11/12/19 Last Taken 11/11/19] Calcium Acetate [Phoslo] 2,001 mg PO DAILYP PRN 07/10/19 [History Confirmed 11/12/19 Last Taken 1 Day Ago ~11/11/19 2001 mg] Carvedilol [Coreg] 25 mg PO BID 07/10/19 [History Confirmed 11/12/19 Last Taken 11/11/19] Ondansetron [Zofran ODT] 4 mg SL Q6HP PRN 07/10/19 [History Confirmed 11/12/19 Last Taken 11/11/19] cloNIDine TTS 2 [Catapres Tts 2] 1 patch TD WEEKLY #4 patch 07/12/19 [Rx Confirmed 11/12/19 Last Taken 11/10/19 0.2 mg] clonidine HCl 0.2 mg tablet 0.2 mg PO TID tab 08/22/19 [History Confirmed 11/12/19 Last Taken 1 Day Ago ~11/11/19 0.2 mg] dicyclomine 10 mg capsule 10 mg PO DAILY cap 08/22/19 [History Confirmed 11/12/19 Last Taken 11/11/19] dolutegravir 50 mg-rilpivirine 25 mg tablet 1 tab PO DAILY #90 tab 08/22/19 [Rx Confirmed 11/12/19 Last Taken 11/11/19] duloxetine 30 mg capsule,delayed release 90 mg PO DAILY cap 08/22/19 [History Confirmed 11/12/19 Last Taken 11/11/19] famotidine 40 mg tablet 40 mg PO BID 08/22/19 [History Confirmed 11/12/19 Last Taken 11/11/19] furosemide 80 mg tablet 80 mg PO QDAY PRN #30 tab 08/22/19 [Rx Confirmed 11/12/19 Last Taken 11/11/19] ipratropium bromide 17 mcg/actuation HFA aerosol inhaler 1 puff INHALATION BID g 08/22/19 [History Confirmed 11/12/19 Last Taken 11/11/19] lisinopril 40 mg tablet 40 mg PO HS 08/22/19 [History Confirmed 11/12/19 Last Taken 11/11/19] loperamide 2 mg capsule 2 mg PO Q2-4HP PRN 08/22/19 [History Confirmed 11/12/19 Last Taken 11/11/19] tenofovir disoproxil fumarate 300 mg tablet 300 mg PO WEEKLY #12 tab 08/22/19 [Rx Confirmed 11/12/19 Last Taken 11/11/19] levetiracetam 250 mg tablet 500 mg PO BID #360 tab 10/04/19 [Rx Confirmed 11/12/19 Last Taken 11/11/19] Cephalexin [Keflex] 500 mg PO BID #10 cap 10/26/19 [Rx Confirmed 11/12/19 Last Taken 11/11/19] Cyclobenzaprine HCl 5 mg PO TIDP PRN 11/12/19 [History Confirmed 11/12/19 Last Taken 11/11/19] Oxybutynin Chloride [Ditropan] 5 mg PO Q6-8HP PRN 11/12/19 [History Confirmed 11/12/19 Last Taken Unknown] oxyCODONE HCL [Roxicodone] 20 mg PO Q6-8HP PRN 11/12/19 [History Confirmed 11/12/19 Last Taken 11/12/19] tiZANidine [Zanaflex] 4 mg PO TID 11/13/19 [History Confirmed 11/13/19 Last Taken 11/11/19] Medical - DS: Hosp Hospital Course: Ms. Ludwig is a 64 year old F With presented to [facility] ED with shortness of breath for 3 days. She is also had increasing cough. Last dialysis was Wednesday. Denies chest or abdominal pain. Patient states that 3 days ago she developed a cough with some sinus drainage rhinorrhea tickling her throat and felt like her cough was probably becoming deeper. She had increasing shortness of breath. He also complains of some dysuria. Her cough is productive of clear and yellow sputum Work-up revealed that she appeared to be volume overloaded. She is also found to be hypertensive and mildly hyperkalemic. She is also diagnosed with UTI. She is also hyponatremic. Dr. Pineda was contacted and was felt that she should be transferred over to [facility] for acute dialysis. Patient states her blood pressure systolic runs between 140 and 200 States she is been taking all her medications appropriately has missed any doses. She went to her dialysis treatment on Wednesday. 11/13 Has a headache. Has some nausea vomiting last night which is common for her. Has generalized pain. Occasional cough. Shortness of breath is present but better than yesterday. 11/14 Feeling better. Stable for discharge. However patient's baseline status is tenuous. Patient high risk for readmission Discharge diagnosis: Presents emergency volume overload dyspnea upper r espiratory infection Secondary discharge diagnosis: UTI electrolyte abnormalities end-stage renal disease chronic anemia HIV COPD chronic pain history of seizures depression anxiety - Time Spent with Patient Total time spent providing and/or coordinating discharge services: Greater than 30 minutes Medical - DS: Exam - Constitutional Vitals: Vital Signs Temp Pulse Pulse Resp BP BP Pulse Ox 11/13/19 07:24 82 16 96 11/13/19 07:22 97.9 F 82 16 125/79 96 11/13/19 03:15 98.8 F 75 20 107/67 96 11/13/19 00:50 99.1 F H 111 H 109/70 11/13/19 00:30 113 H 125/72 11/13/19 00:22 18 11/13/19 00:15 120 H 119/78 11/13/19 00:00 97.7 F 125 H 119 H 20 109/68 124/67 97 11/12/19 23:45 128 H 120/79 11/12/19 23:30 122 H 121/81 11/12/19 23:15 127 H 121/78 11/12/19 23:00 120 H 158/94 11/12/19 22:45 120 H 145/88 11/12/19 22:30 120 H 152/105 11/12/19 22:15 105 H 155/93 11/12/19 22:00 112 H 143/95 11/12/19 21:45 97 H 149/93 11/12/19 21:30 120 H 159/94 11/12/19 21:15 97.6 F 120 H 151/100 11/12/19 20:00 98.2 F 116 H 22 131/72 97 11/12/19 18:00 119 H 22 133/79 94 11/12/19 16:29 98.3 F 125 H 22 166/92 95 11/12/19 16:00 98.3 F 127 H 18 152/83 93 11/12/19 14:07 203/108 11/12/19 13:15 98.5 F 97 H 20 216/115 95 Intake and Output 11/12/19 11/13/19 11/13/19 21:59 05:59 13:59 Intake Total 300 590 Output Total 4300 Balance 300 -3710 Intake: Oral 300 590 Output: Hemodialysis UF 4300 Other: Meal Lunch Percent of Meal Consumed 50% Feeding Ability Assist with Tray Set Up Weight 50.122 kg Medical - DS: Data Labs on day of discharge: Labs from last 24 hours 11/13/19 05:40 Sodium 128 L Potassium 4.7 Chloride 88 L Carbon Dioxide 20 L Anion Gap 20.0 H BUN 23 Creatinine 3.5 H GFR Calculation 13 Glucose 93 Uric Acid 2.6 Calcium 8.8 Phosphorus 5.8 H Magnesium 1.9 Total Bilirubin 0.4 Direct Bilirubin < 0.2 GGT 14 AST 21 ALT 12 Alkaline Phosphatase 113 Lactate Dehydrogenase 386 H Total Protein 7.2 Albumin 3.7 Globulin 3.5 Albumin/Globulin Ratio 1.1 Triglycerides 81 Medical - DS: A/P - Patient/Caregiver Discharge Instructions Activity: as per physical therapy Diet: Renal - Follow up Plan Follow up with: Giancarlo Pineda MD [Physician] - Disposition: Home Health Service Prognosis: Serious Rehab Potential: Fair Overall status at discharge: patient is progressing back to baseline
--- NOTE | 2019-11-13 18:59 | Consultation ---
DATE OF CONSULTATION: 11/13/2019 REFERRING PHYSICIAN: Sina Ramirez MD REASON FOR HOSPITALIZATION: End-stage renal disease. HISTORY OF PRESENT ILLNESS: Ms. Ludwig is a 64-year-old female with a history of end-stage renal disease, on hemodialysis. She dialyzes on Wednesday, Wednesday and Fridays. She also was HIV positive. She has some chronic diarrhea and COPD. She has been cutting her dialysis treatment for the last week because she has been sick on and off. For that reason and Wednesday also, she cut her treatment. She presented to the emergency room on Wednesday with shortness of breath. Chest x-ray showed mild fluid overload. For that reason, she was hospitalized. PAST MEDICAL HISTORY: Significant for: 1. History of seizures. 2. End-stage renal disease, on hemodialysis. 3. Osteoporosis. 4. Kidney stones. 5. Tobacco use. 6. Depression. 7. Aspiration pneumonia. 8. History of GI bleed. 9. Hyperkalemia. 10. Migraines. 12. COPD. 13. GERD. 14. HIV positive status. PAST SURGICAL HISTORY: 1. History of gastric bypass. 2. Hysterectomy. 3. Peritoneal dialysis placement. 4. History of kidney biopsy. 5. Cystourethroscopy with dilatation of the ureteral stricture. FAMILY HISTORY: Mother had heart disease and breast cancer. Father had stomach cancer and high blood pressure and heart disease. Sister has arthritis and thyroid disease. Brother has arthritis. SOCIAL HISTORY: Uses e-cigarettes. Denies any history of alcohol. She smokes marijuana. MEDICATIONS ON ADMISSION: She is on: 1. Amlodipine 10 mg once daily. 2. Amitriptyline 50 mg once daily. 3. Calcium acetate 2000 mg once daily. 4. Coreg 25 mg p.o. b.i.d. 5. Zofran p.r.n. 6. Clonidine patch #2 once weekly. 7. Clonidine tablets p.r.n. 8. Duloxetine 30 mg once daily. 9. Famotidine 40 mg daily. 10. Lasix 80 mg daily. 11. Lisinopril 40 mg daily. 12. Loperamide 2 mg p.r.n. 13. Cephalexin p.r.n. 14. Extra codeine p.r.n. REVIEW OF SYSTEMS: Ten systems were reviewed and as indicated in history of present illness. PHYSICAL EXAMINATION: GENERAL: The patient is a large oriented x3, not in apparent distress. VITAL SIGNS: Blood pressures have been ranging from 120 to 200 systolic with a diastolic in the 60s, pulse rates have been in the 80s, respiration rate of 18, pulse oximetry has been 92%. Pulse rates have been in the 70s to 90s. HEENT: NC/AT. Pupils are reactive to light. External auditory canal appears normal. NECK: Supple. No jugular venous. No lymphadenopathy. LUNGS: Decreased air entry bilaterally. Rales heard in both bases. CARDIAC: S1 and S2. No S3 or S4. She has a 3/6 systolic murmur. ABDOMEN: Soft, nontender. No organomegaly. Positive bowel sounds. EXTREMITIES: Did not show any evidence of edema. LABORATORY DATA: Sodium 128, potassium 4.7, chloride of 98, CO2 of 20, BUN of 23, creatinine of 3.5. ASSESSMENT AND PLAN: 1. End-stage renal disease, on hemodialysis. She is volume overloaded. She was dialyzed yesterday and today. She is currently undergoing dialysis. Her blood pressures are dropping, so she may not have any more fluid to give. Her potassium and sodium has been corrected with dialysis. 2. Hyperphosphatemia. She tends to have high phosphorus, but today is not bad at 5.8 and a calcium of 8.8. 3. Chronic obstructive pulmonary disease. Multiple other problems, management per hospitalist. KEE:desire Job ID: [id number] Doc ID: [id number] Giancarlo Ramirez DO
[2019-11-14] MEDS: cloNIDine HCL 0.1 MG TABLET PO SCH ×3 (00:59→15:45)
[2019-11-14] MEDS: CARVEDILOL 12.5 MG TABLET PO SCH ×2 (00:59→09:21)
[2019-11-14] MEDS: AMITRIPTYLINE 25 MG TABLET PO SCH (01:00)
[2019-11-14] MEDS: oxyCODONE HCL 5 MG TABLET PO PRN ×3 (02:06→13:43)
[2019-11-14] MEDS: CALCIUM ACETATE 667 MG CAPSULE PO PRN ×3 (03:52→12:09)
[2019-11-14] MEDS: hydrALAZINE 20 MG/ML VIAL IV PRN (03:52)
[2019-11-14 07:44] LABS: Basophils # (Auto) 0.05 K/mcL (0.00-0.30); Eosinophils # (Auto) 0.16 K/mcL (0.00-0.70); Eosinophils % (Auto) 3.3 % (0.0-7.0); Granulocytes % (Auto) 51.6 % (38.0-78.0); Hematocrit 26.8 % (34.1-44.9); Hemoglobin 8.5 g/dL (11.2-15.7); Lymphocytes # (Auto) 1.55 K/mcL (1.50-4.80); Lymphocytes % (Auto) 31.8 % (15.5-49.0); Mean Cell Volume 99.3 fL (80.0-100.0); Mean Corpuscular HGB Conc 31.7 g/dL (31.0-36.0); Mean Platelet Volume 9.2 fL (7.4-10.4); Monocytes % (Auto) 12.3 % (1.0-12.0); Platelet Count 248 K/mcL (140-440); Red Cell Distribution Width 13.3 % (11.5-14.5); WBC 4.9 K/mcL (4.50-11.00)
[2019-11-14 07:59] LABS: Blood Urea Nitrogen 16 mg/dl (8-23); Calcium 9.2 mg/dl (8.6-10.4); Carbon Dioxide 20 mmol/L (22-30); Glomerular Filtration Rate 14; Glucose 89 mg/dL (70-105)
[2019-11-14 08:00] LABS: Chloride 89 mmol/L (96-108)
--- NOTE | 2019-11-14 09:10 | Nephrology Progress Note ---
Subjective Patient information: Note initiated : 11/14/19 at 9:04 am Service Date, if different from initiated Date: [] Patient: Shyann Ludwig 64 y/o F admitted on 11/12/19 for Dialysis. Chief Complaint: [] Feels better. Has some headache. Objective - Vital Signs Vital signs: Vital Signs Temp Pulse Pulse Resp BP BP Pulse Ox 11/14/19 08:00 98.0 F 96 H 20 175/83 94 11/14/19 03:37 97.5 F 90 16 154/90 96 11/13/19 22:46 98.4 F 89 14 114/78 96 11/13/19 19:38 98.0 F 97 H 14 110/74 94 11/13/19 19:00 97.8 F 65 110/74 11/13/19 18:53 85 95/71 11/13/19 18:39 86 102/63 11/13/19 18:21 89 107/60 11/13/19 18:03 85 108/63 11/13/19 17:48 82 110/63 11/13/19 17:33 100 H 102/64 11/13/19 17:23 80 109/59 11/13/19 17:06 80 118/64 11/13/19 16:49 80 94/56 11/13/19 16:34 60 90/53 11/13/19 16:19 73 101/61 11/13/19 16:04 74 103/63 11/13/19 16:00 97.2 F 73 20 119/79 93 11/13/19 15:35 73 119/79 11/13/19 15:05 97.8 F 68 145/88 11/13/19 12:00 97.4 F 68 16 124/79 98 Intake and Output 11/13/19 11/14/19 11/14/19 21:59 05:59 13:59 Intake Total 1040 240 Output Total 3900 25 Balance -2860 215 Intake: Oral 1040 240 Output: Void Amount 25 Hemodialysis UF 3900 Other: Weight 102 lb Intake & Output: Intake & Output 11/13/19 11/14/19 11/14/19 21:59 05:59 13:59 Intake Total 1040 240 Output Total 3900 25 Balance -2860 215 Weight 102 lb Intake: Oral 1040 240 Output: Void Amount 25 Hemodialysis UF 3900 - General Appearance General appearance: well-developed EENT: ATNC Neck: JVD Cardiology: holosystolic murmur Gastrointestinal: hypoactive bowel sounds Integumentary: no rash - Lab 11/14/19 06:06 11/14/19 06:06 Most recent lab results Calcium 9.2 mg/dl (8.6-10.4) 11/14/19 06:06 Phosphorus 5.8 mg/dL (2.7-4.5) H 11/13/19 05:40 Magnesium 1.9 mg/dL (1.6-2.5) 11/13/19 05:40 Assessment and Plan (1) End stage renal disease on dialysis Status: Chronic Comment: Admitted with fluid overload. Had dialysis and felt a lot better. BP is still high. Will adjust bp meds.
[2019-11-14] MEDS ORDERED: cloNIDine TTS 3 1 PATCH PATCH TD ONE (09:16)
[2019-11-14] MEDS: tiZANidine 4 MG TABLET PO SCH ×2 (09:21→15:45)
[2019-11-14] MEDS: DOCUSATE SODIUM 100 MG CAPSULE PO SCH (09:21)
[2019-11-14] MEDS: FAMOTIDINE 20 MG TABLET PO SCH (09:22)
[2019-11-14] MEDS: IPRATROPIUM BROMIDE PO SCH (09:22)
[2019-11-14] MEDS: DULoxetine 30 MG CAPSULE PO SCH (09:23)
[2019-11-14] MEDS: cefTRIAXone 1 GM VIAL IV SCH (09:23)
[2019-11-14] MEDS: levETIRAcetam 500 MG TABLET PO SCH (09:23)
[2019-11-14] MEDS: 0.9 % SODIUM CHLORIDE 10 ML SYRINGE IV SCH ×2 (09:24→13:45)
[2019-11-14] MEDS: JULUCA PO SCH (09:24)
[2019-11-14] MEDS: DICYCLOMINE 20 MG TABLET PO SCH (09:25)
[2019-11-14] MEDS: HEPARIN 5,000 UNIT/ML VIAL SQ SCH (09:26)
[2019-11-14] MEDS: ACETAMINOPHEN 325 MG TABLET PO PRN ×2 (09:26→13:42)
[2019-11-14] MEDS: ONDANSETRON 4 MG/2 ML VIAL IV PRN ×2 (09:26→13:41)
== END 2019-11-14 16:12 | disposition home health service (06) | DRG 304 ==
LOC: MEDSUR 13:07
PROVIDERS: ADMIT Internal Medicine; ATTEND Internal Medicine

== ENCOUNTER 2019-11-15 15:23 | Observation (INO) ==
[2019-11-15] MEDS ORDERED: PIPERACILLIN SODIUM/TAZOBACTAM 3.375 GM in DEXTROSE 5% IN WATER 50 ML IV ONE (16:01)
--- NOTE | 2019-11-15 16:05 | Emergency Department Note ---
Weakness HPI - General Chief complaint: Weakness Stated complaint: weakness Time Seen by Provider: 11/15/19 15:54 Source: patient, EMS, old records reviewed Mode of arrival: EMS Limitations: no limitations - History of Present Illness HPI Narrative: 64-year-old female comes in via EMS from [facility] secondary to fever and weakness. She is requiring oxygen now 2 L for hypoxia. Also elevated temperature at 99. She states been sick for the last 2 to 3 days. No one else is sick at home. She notes some vague belly discomfort. Intermittent diarrhea. She is somnolent but will wake up and answer questions Her dialysis doctor is Dr. Pineda - Related Data Home Medications Medication Instructions Recorded Confirmed amlodipine 10 mg tablet 10 mg PO BID 04/17/19 11/15/19 Amitriptyline [Elavil] 50 mg PO HS 07/10/19 11/15/19 Calcium Acetate [Phoslo] 2,001 mg PO DAILYP PRN 07/10/19 11/15/19 Carvedilol [Coreg] 25 mg PO BID 07/10/19 11/16/19 Ondansetron [Zofran ODT] 4 mg SL Q6HP PRN 07/10/19 11/15/19 clonidine HCl 0.2 mg tablet 0.2 mg PO TID tab 08/22/19 11/15/19 dicyclomine 10 mg capsule 10 mg PO DAILYP PRN cap 08/22/19 11/15/19 duloxetine 30 mg capsule,delayed 90 mg PO DAILY cap 08/22/19 11/15/19 release famotidine 40 mg tablet 40 mg PO BID 08/22/19 11/15/19 ipratropium bromide 17 1 puff INHALATION BID g 08/22/19 11/16/19 mcg/actuation HFA aerosol inhaler lisinopril 40 mg tablet 40 mg PO HS 08/22/19 11/15/19 loperamide 2 mg capsule 2 mg PO Q2-4HP PRN 08/22/19 11/15/19 Cyclobenzaprine HCl 10 mg PO TIDP PRN 11/12/19 11/15/19 oxyCODONE HCL [Roxicodone] 20 mg PO Q6-8HP PRN 11/12/19 11/15/19 tiZANidine [Zanaflex] 4 mg PO TID 11/13/19 11/15/19 Calcium Acetate [Phoslo] 2,001 mg PO TIDCC 11/14/19 11/15/19 Previous Rx's Medication Instructions Recorded cloNIDine TTS 2 [Catapres Tts 2] 1 patch TD WEEKLY #4 patch 07/12/19 dolutegravir 50 mg-rilpivirine 25 1 tab PO DAILY #90 tab 08/22/19 mg tablet furosemide 80 mg tablet 80 mg PO QDAY PRN #30 tab 08/22/19 tenofovir disoproxil fumarate 300 300 mg PO WEEKLY #12 tab 08/22/19 mg tablet levetiracetam 250 mg tablet 500 mg PO BID #360 tab 10/04/19 oxyCODONE HCL [Roxicodone] 20 mg PO Q8HP PRN #36 tab 11/14/19 Allergies Allergy/AdvReac Type Severity Reaction Status Date / Time dihydroergotamine AdvReac Mild Nausea Verified 11/16/19 06:36 ketorolac [From Toradol] AdvReac Mild Itching Verified 11/01/19 09:57 Review of Systems All systems ED: reviewed and negative except as stated. Past Medical History - Past Medical History Attestation: Yes: The following information was validated with the patient. [facility] Narrative: Family History (Last Reviewed 10/24/19 @ 11:41 by Carley Hill RN) Mother Heart disease Breast cancer, Onset Age: 62 Arthritis High blood pressure Migraines Thyroid disease Father Stomach cancer Heart disease Arthritis High blood pressure Heart attack Unknown Bruising Sister Arthritis Thyroid disease Brother Arthritis Opiate addiction Grandmother Dementia Daughter Migraines Family/Other Opiate addiction Other Family history of breast cancer Family history- stomach cancer Medical History (Last Reviewed 10/24/19 @ 11:41 by Carley Hill RN) Nicotine dependence (Chronic) Opioid use disorder, moderate, dependence (Chronic) Chills with fever (Chronic) Dysuria (Chronic) History of jejunoileal atresia (Chronic) 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) Stomach ulcer (Chronic) Seizures (Chronic) Osteoporosis (Chronic) Kidney stones (Acute) Kidney failure (Chronic) Joint pain (Chronic) Daytime sleepiness (Chronic) Muscle pain (Chronic) Anxiety (Chronic) 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) Tobacco abuse (Chronic) Depression (Chronic) Opioid dependence (Chronic) Upper GI bleed (Chronic) Aspiration pneumonia (Chronic) Hyperphosphatemia (Chronic) Hyperkalemia (Chronic) Volume overload (Chronic) Metabolic acidosis (Chronic) Posterior reversible encephalopathy syndrome (Chronic) History of seizures (Chronic 09/2018) Anemia in chronic kidney disease (CKD) (Acute) End stage renal disease on dialysis (Chronic) Migraines (Chronic) Renal disease (Chronic) Chronic GERD (Chronic) COPD (chronic obstructive pulmonary disease) (Chronic) Chronic pain (Chronic) Hemodialysis status (Chronic) N&V (nausea and vomiting) (Chronic) Arthritis (Chronic) HIV (human immunodeficiency virus infection) (Chronic 2000) HTN (hypertension) (Acute) End stage renal disease on dialysis (Chronic) Past Surgical History (Last Updated 11/08/19 @ 13:24 by Vale Valero) History of colonoscopy (Acute ~11/01/19) History of gastric bypass (Chronic) History of hysterectomy (Chronic ~1991) History of peritoneal dialysis (Chronic) Status post biopsy of kidney (Chronic ~2012) Status post cystourethroscopy with dilation of urethral stricture (Chronic ~06/01/19) Source: old records reviewed Medical history: Reports: GERD, HIV/AIDS, hypertension, migraine, renal disease (End-stage) Surgical history ED: Reports: other (Gastric bypass, lithotripsy) - Social History smoking status: Current every day smoker Physical Exam Weak ill-appearing female no acute distress. Normocephalic atraumatic. Conjunctive are clear sclera white nonicteric. Pupils are equal and reactive. No nasal discharge or congestion. Voice is hoarse and raspy but this is likely chronic. Oropharynx is with dry buccal mucosa. Posterior pharynx is clear. Neck is supple without lymphadenopathy thyromegaly or carotid bruit. Heart is regular rate and rhythm no murmur appreciated. Lungs are clear to auscultation bilaterally without wheezes rales rhonchi or respiratory distress. Abdomen is soft and diffusely tender. No peritoneal signs or guarding. No rigidity. Somnolent but arousable Limitations: no limitations Course Vital Signs Temperature 99.0 F 11/15/19 15:24 Pulse Rate 84 11/15/19 15:24 Respiratory Rate 18 11/15/19 15:24 Blood Pressure 149/75 11/15/19 15:24 Pulse Oximetry (%) 88 L 11/15/19 15:24 Temperature 96 F L 11/16/19 08:00 Pulse Rate 72 11/16/19 08:00 Respiratory Rate 10 L 11/16/19 08:00 Blood Pressure 175/82 11/16/19 08:00 Pulse Oximetry (%) 99 11/16/19 08:00 Weakness - Lab Data Lab results reviewed: Yes I reviewed the patient's lab results. Result diagrams: 11/15/19 16:11 11/15/19 16:11 Lab Results 11/15/19 11/15/19 11/15/19 Range/Units 16:11 16:11 16:23 WBC 5.3 (4.50-11.00) K/mcL RBC 2.44 L (3.59-5.38) M/mcL Hgb 7.7 L (11.2-15.7) g/dL Hct 23.1 L (34.1-44.9) % POC Hct 23.0 L (36.0-48.0) % MCV 94.7 (80.0-100.0) fL MCH 31.6 (26.0-34.0) pg MCHC 33.3 (31.0-36.0) g/dL RDW 13.2 (11.5-14.5) % Plt Count 195 (140-440) K/mcL MPV 9.1 (7.4-10.4) fL Gran % 60.4 (38.0-78.0) % Lymph % (Auto) 26.0 (15.5-49.0) % [place] % (Auto) 10.1 (1.0-12.0) % Eos % (Auto) 2.9 (0.0-7.0) % Baso % (Auto) 0.6 (0.0-2.0) % Gran # 3.18 (1.80-8.00) K/mcL Lymph # (Auto) 1.37 L (1.50-4.80) K/mcL [place] # (Auto) 0.53 (0.10-0.90) K/mcL Eos # (Auto) 0.15 (0.00-0.70) K/mcL Baso # (Auto) 0.03 (0.00-0.30) K/mcL VBG Lactic Acid (0.5-2.0) mmol/L POC Sodium 132 L (133-145) mmol/L Sodium 133 (133-145) mmol/L POC Potassium 3.5 (3.3-5.1) mmol/L Potassium 3.6 (3.3-5.1) mmol/L POC Chloride 92 L (96-108) mmol/L Chloride 90 L (96-108) mmol/L Carbon Dioxide 29 (22-30) mmol/L POC Total CO2 33 H (22-30) mmol/L Anion Gap 14.0 (8-16) POC BUN 12 (8-23) mg/dl BUN 12 (8-23) mg/dl Creatinine 2.2 H (0.6-1.1) mg/dl POC Creatinine 2.2 H (0.6-1.1) mg/dl GFR Calculation 23 Glucose 75 (70-105) mg/dL POC Glucose 73 (70-105) mg/dL Calcium 8.6 (8.6-10.4) mg/dl POC WB Ioniz Calcium 1.06 L (1.16-1.32) mmol/L Magnesium 2.0 (1.6-2.5) mg/dL Total Bilirubin 0.2 (0.0-1.0) mg/dL AST 16 (0-37) U/l ALT 9 (0-40) U/l Alkaline Phosphatase 116 (39-117) U/L Total Protein 6.9 (5.9-8.4) gm/dL Albumin 4.0 (3.2-5.2) gm/dL Globulin 2.9 (2.2-3.7) gm/dL Albumin/Globulin Ratio 1.4 (1.0-2.3) Urine Color Yellow Urine Appearance Cloudy Urine pH 8.0 (5.0-9.0) Ur Specific [place] 1.012 (1.000-1.035) Urine Protein >=500 A (NEG) mg/dL Urine Glucose (UA) 50 A (NEG) mg/dL Urine Ketones Neg (NEG) mg/dL Urine Occult Blood 0.03 A (<0.03) mg/dL Urine Nitrate Neg (NEG) Urine Bilirubin Neg (NEG) mg/dL Urine Urobilinogen Neg (NEG) mg/dL Ur Leukocyte Esterase 500 A (NEG) /uL Urine RBC 125 H (0-1) /hpf Urine WBC > 182 H (0-4) /hpf Ur Squamous Epith Cells 3 (0-4) /hpf Ur Transition Epith Cell 1 (0-2) /hpf Urine Bacteria 0 (0) /hpf Ur Culture Indicated? Yes Urine Opiates Screen (NONDETECTED) Ur Opiates Confirm Ur Oxycodone Screen (NONDETECTED) Urine Methadone Screen (NONDETECTED) Ur Methadone Confirm Ur Barbiturates Screen (NONDETECTED) Ur Barbiturate Confirm Ur Phencyclidine Scrn (NONDETECTED) Urine PCP Confirm Ur Amphetamines Screen (NONDETECTED) U Amphetamines Confirm U Benzodiazepines Scrn (NONDETECTED) U Benzodiazepine Confm Urine Cocaine Screen (NONDETECTED) Urine Cocaine Confirm U Cannabinoids Confirm U Marijuana (THC) Screen (NONDETECTED) 11/15/19 11/15/19 Range/Units 16:23 16:35 WBC (4.50-11.00) K/mcL RBC (3.59-5.38) M/mcL Hgb (11.2-15.7) g/dL Hct (34.1-44.9) % POC Hct (36.0-48.0) % MCV (80.0-100.0) fL MCH (26.0-34.0) pg MCHC (31.0-36.0) g/dL RDW (11.5-14.5) % Plt Count (140-440) K/mcL MPV (7.4-10.4) fL Gran % (38.0-78.0) % Lymph % (Auto) (15.5-49.0) % [place] % (Auto) (1.0-12.0) % Eos % (Auto) (0.0-7.0) % Baso % (Auto) (0.0-2.0) % Gran # (1.80-8.00) K/mcL Lymph # (Auto) (1.50-4.80) K/mcL [place] # (Auto) (0.10-0.90) K/mcL Eos # (Auto) (0.00-0.70) K/mcL Baso # (Auto) (0.00-0.30) K/mcL VBG Lactic Acid 0.7 (0.5-2.0) mmol/L POC Sodium (133-145) mmol/L Sodium (133-145) mmol/L POC Potassium (3.3-5.1) mmol/L Potassium (3.3-5.1) mmol/L POC Chloride (96-108) mmol/L Chloride (96-108) mmol/L Carbon Dioxide (22-30) mmol/L POC Total CO2 (22-30) mmol/L Anion Gap (8-16) POC BUN (8-23) mg/dl BUN (8-23) mg/dl Creatinine (0.6-1.1) mg/dl POC Creatinine (0.6-1.1) mg/dl GFR Calculation Glucose (70-105) mg/dL POC Glucose (70-105) mg/dL Calcium (8.6-10.4) mg/dl POC WB Ioniz Calcium (1.16-1.32) mmol/L Magnesium (1.6-2.5) mg/dL Total Bilirubin (0.0-1.0) mg/dL AST (0-37) U/l ALT (0-40) U/l Alkaline Phosphatase (39-117) U/L Total Protein (5.9-8.4) gm/dL Albumin (3.2-5.2) gm/dL Globulin (2.2-3.7) gm/dL Albumin/Globulin Ratio (1.0-2.3) Urine Color Urine Appearance Urine pH (5.0-9.0) Ur Specific [place] (1.000-1.035) Urine Protein (NEG) mg/dL Urine Glucose (UA) (NEG) mg/dL Urine Ketones (NEG) mg/dL Urine Occult Blood (<0.03) mg/dL Urine Nitrate (NEG) Urine Bilirubin (NEG) mg/dL Urine Urobilinogen (NEG) mg/dL Ur Leukocyte Esterase (NEG) /uL Urine RBC (0-1) /hpf Urine WBC (0-4) /hpf Ur Squamous Epith Cells (0-4) /hpf Ur Transition Epith Cell (0-2) /hpf Urine Bacteria (0) /hpf Ur Culture Indicated? Urine Opiates Screen Suspect positive A (NONDETECTED) Ur Opiates Confirm Not Reportable Ur Oxycodone Screen Suspect positive A (NONDETECTED) Urine Methadone Screen None detected (NONDETECTED) Ur Methadone Confirm Not Reportable Ur Barbiturates Screen None detected (NONDETECTED) Ur Barbiturate Confirm Not Reportable Ur Phencyclidine Scrn None detected (NONDETECTED) Urine PCP Confirm Not Reportable Ur Amphetamines Screen None detected (NONDETECTED) U Amphetamines Confirm Not Reportable U Benzodiazepines Scrn None detected (NONDETECTED) U Benzodiazepine Confm Not Reportable Urine Cocaine Screen None detected (NONDETECTED) Urine Cocaine Confirm Not Reportable U Cannabinoids Confirm Not Reportable U Marijuana (THC) Screen None detected (NONDETECTED) urinalysis [id number] dipstick shows large leukocytes large amount of blood negative nitrites with gravity 1.010 Influenza swab is negative - Radiology Data Radiology results reviewed: Yes I reviewed the patient's radiology results. Chest x-ray shows interstitial disease process could be inflammation CT scan of the chest without contrast shows groundglass opacities and evidence of pneumonia - EKG Data EKG attestation: Yes I reviewed and interpreted this EKG., Yes There are no EKG findings of acute coronary syndrome, Yes This EKG will be read by foreign collection clerk EKG results narrative: Sinus rhythm with LVH Disposition Pt seen by PERSONAL CARE AID/PA only: No Clinical Impression: End stage renal disease on dialysis Urinary tract infection Qualifiers: Urinary tract infection type: acute cystitis Hematuria presence: with hematuria Qualified Code(s): N30.01 - Acute cystitis with hematuria Sepsis Qualifiers: Sepsis type: sepsis due to unspecified organism Sepsis acute organ dysfunction status: with acute organ dysfunction Severe sepsis acute organ dysfunction type: acute respiratory failure Acute respiratory failure type: with hypoxia Severe sepsis shock status: unspecified Qualified Code(s): A41.9 - Sepsis, unspecified organism HIV (human immunodeficiency virus infection) Qualifiers: HIV symptom status: unspecified Qualified Code(s): B20 - Human immunodeficiency virus [HIV] disease Pneumonia Qualifiers: Pneumonia type: due to unspecified organism Laterality: bilateral Lung location: lower lobe of lung Qualified Code(s): J18.9 - Pneumonia, unspecified organism Summary: Weakness fatigue low-grade temperature elevation and hypoxia. Further complicating the issue is she has multiple known comorbidities including end- stage renal disease COPD and HIV. We will go ahead and start Vanco and Zosyn get blood cultures. Laboratory work-up plus chest x-ray. Continue oxygen therapy Laboratory shows UTI and chest x-ray shows some interstitial disease so CT scan of the chest without contrast is ordered. CT scan shows evidence of pneumonia with groundglass opacities. Hospitalist will be contacted for admission-discussed with Dr. Luong. Dr. Luong accepted the patient for further care and evaluation in the hospital. Also discussed the case with Dr. Pineda, her tongue binder. He agreed to consult on the patient as needed in the hospital Disposition: Xfer As Inpt ([facility]) Condition: Critical
[2019-11-15] MEDS ORDERED: VANCOMYCIN 1,000 MG in 0.9 % SODIUM CHLORIDE 250 ML IV SCH (16:15)
[2019-11-15 16:22] LABS: POC Blood Urea Nitrogen 12 mg/dl (8-23); POC CO2 33 mmol/L (22-30); POC Calcium, Ionized 1.06 mmol/L (1.16-1.32); POC Chloride 92 mmol/L (96-108); POC Creatinine 2.2 mg/dl (0.6-1.1); POC Glucose, Random 73 mg/dL (70-105); POC Potassium 3.5 mmol/L (3.3-5.1); POC Sodium 132 mmol/L (133-145)
--- NOTE | 2019-11-15 16:24 | XRay Report ---
HISTORY: Fever and weakness FINDINGS: There are prominent increased interstitial lung markings bilaterally. There is a band of scar or discoid atelectasis at the left costophrenic sulcus. No pleural effusion is seen. The right diaphragm is mildly elevated. Lung volumes are small due to suboptimal inspiration. Heart is mildly enlarged but magnified. There is a large caliber dual lumen catheter placed through the right internal jugular vein into the right atrium of the heart. There is no widening in the mediastinum. Comparison with the prior exam from 07/10/19 shows there has been significant improvement of the previously seen widespread alveolar opacities IMPRESSION: Nonspecific bilateral interstitial lung disease. This could be mild interstitial edema, fibrosis or an active interstitial inflammatory process. Mild cardiomegaly which has enlarged since 07/10/19 Interpreted and Authenticated by: Abdon Renee 11/15/19
[2019-11-15 16:50] LABS: Basophils # (Auto) 0.03 K/mcL (0.00-0.30); Basophils % (Auto) 0.6 % (0.0-2.0); Eosinophils # (Auto) 0.15 K/mcL (0.00-0.70); Eosinophils % (Auto) 2.9 % (0.0-7.0); Granulocytes % (Auto) 60.4 % (38.0-78.0); Hematocrit 23.1 % (34.1-44.9); Hemoglobin 7.7 g/dL (11.2-15.7); Lymphocytes # (Auto) 1.37 K/mcL (1.50-4.80); Mean Cell Volume 94.7 fL (80.0-100.0); Mean Corpuscular HGB Conc 33.3 g/dL (31.0-36.0); Mean Platelet Volume 9.1 fL (7.4-10.4); Monocytes # (Auto) 0.53 K/mcL (0.10-0.90); Monocytes % (Auto) 10.1 % (1.0-12.0); Platelet Count 195 K/mcL (140-440); RBC 2.44 M/mcL (3.59-5.38); Red Cell Distribution Width 13.2 % (11.5-14.5); WBC 5.3 K/mcL (4.50-11.00)
[2019-11-15 17:07] LABS: ALT/SGPT 9 U/l (0-40); AST/SGOT 16 U/l (0-37); Albumin/Globulin Ratio 1.4 (1.0-2.3); Alkaline Phosphatase 116 U/L (39-117); Bilirubin,Total 0.2 mg/dL (0.0-1.0); Blood Urea Nitrogen 12 mg/dl (8-23); Calcium 8.6 mg/dl (8.6-10.4); Carbon Dioxide 29 mmol/L (22-30); Globulin 2.9 gm/dL (2.2-3.7); Glomerular Filtration Rate 23; Glucose 75 mg/dL (70-105)
[2019-11-15 17:15] LABS: Chloride 90 mmol/L (96-108)
[2019-11-15 17:51] LABS: Appearance,Urine CLOUDY; Bacteria,Urine 0 /hpf (0); Bilirubin,Urine NEG (NEG); Color,Urine YELLOW; Culture Indicated,Urine YES; Glucose,Urine (UA) 50 mg/dL (NEG); Ketones,Urine NEG (NEG); Leukocyte Esterase,Urine 500 /uL (NEG); Nitrate,Urine NEG (NEG); Protein,Urine >=500 mg/dL (NEG); Specific Gravity,Urine 1.012 (1.000-1.035); Urine Blood 0.03 mg/dL (<0.03); Urine RBC 125 /hpf (0-1); Urine Squamous Epithelial Cell 3 /hpf (0-4); Urine Transitional Epi Cells 1 /hpf (0-2); Urine WBC > 182 /hpf (0-4); Urobilinogen,Urine NEG (NEG)
[2019-11-15] MEDS ORDERED: ONDANSETRON 4 MG/2 ML VIAL IV PRN ×2 (21:53→22:44)
--- NOTE | 2019-11-15 23:39 | Internal Med History&Physical ---
Medical - H&P: HPI Patient information: Note initiated : 11/15/19 at 11:34 pm Service Date, if different from initiated Date: [] Patient: Shyann Ludwig a 64 y/o F admitted on 11/15/19 for weakness. Chief Complaint: [cough sob Chief complaint: cough, sob History of present illness: Ms. Ludwig is a 64 year old F with ESRD was sent in from dialysis due to fever and hypoxemia. Pt says she has felt malaise, myalgias, cough productive of yellow phlegm for about 1 week. She has no sick contacts and lives with sister at home. The pt has had chills fevers, sob. She was diagnosed with HIV 10 years ago when sick. She attributes HIV to blood transfusion in 1983. She denies IVDA. She used to smoke but 3 years ago began vaping now daily. Additionally she does not drink or use street drugs. She wants full code status. Started dialysis 3years ago. no diabetes and unclear etiology for ESRD, possibly her HIV medications. She has same right chest tunneled cath for 3 years. No infection previously. She says no good vessels for fistula. - Constitutional Constitutional: Present: as per HPI, excessive sweating, fever(s), lethargy, malaise - EENT Eyes: Present: as per HPI - Cardiovascular Cardiovascular: Present: dyspnea on exertion. Absent: chest pain, irregular heart rhythm - Respiratory Respiratory: Present: cough, dyspnea, excessive phlegm production, change in phlegm color - Gastrointestinal Gastrointestinal: Present: diarrhea (mild) - Genitourinary Genitourinary: Absent: difficulty urinating (but has oliguria) - Musculoskeletal Musculoskeletal: Present: muscle weakness, myalgias - Endocrine Additional comments: no diabetes Medical - H&P: PMH Problems Reviewed: Yes Functional capacity: independent ambulation Smoking status: Former smoker Have you smoked in the last 12 months: No Drug use: none Alcohol use: none Medical - H&P: Meds Home Medications Medication Instructions Recorded Confirmed Type amlodipine 10 mg tablet 10 mg PO HS 04/17/19 11/12/19 History Amitriptyline [Elavil] 50 mg PO HS 07/10/19 11/12/19 History Calcium Acetate [Phoslo] 2,001 mg PO DAILYP PRN 07/10/19 11/12/19 History Carvedilol [Coreg] 25 mg PO BID 07/10/19 11/12/19 History Ondansetron [Zofran ODT] 4 mg SL Q6HP PRN 07/10/19 11/12/19 History cloNIDine TTS 2 [Catapres Tts 2] 1 patch TD WEEKLY #4 patch 07/12/19 11/12/19 Rx clonidine HCl 0.2 mg tablet 0.2 mg PO TID tab 08/22/19 11/12/19 History dicyclomine 10 mg capsule 10 mg PO DAILY cap 08/22/19 11/12/19 History dolutegravir 50 mg-rilpivirine 25 1 tab PO DAILY #90 tab 08/22/19 11/12/19 Rx mg tablet duloxetine 30 mg capsule,delayed 90 mg PO DAILY cap 08/22/19 11/12/19 History release famotidine 40 mg tablet 40 mg PO BID 08/22/19 11/12/19 History furosemide 80 mg tablet 80 mg PO QDAY PRN #30 tab 08/22/19 11/12/19 Rx ipratropium bromide 17 1 puff INHALATION BID g 08/22/19 11/12/19 History mcg/actuation HFA aerosol inhaler lisinopril 40 mg tablet 40 mg PO HS 08/22/19 11/12/19 History loperamide 2 mg capsule 2 mg PO Q2-4HP PRN 08/22/19 11/12/19 History tenofovir disoproxil fumarate 300 300 mg PO WEEKLY #12 tab 08/22/19 11/12/19 Rx mg tablet levetiracetam 250 mg tablet 500 mg PO BID #360 tab 10/04/19 11/12/19 Rx Cyclobenzaprine HCl 5 mg PO TIDP PRN 11/12/19 11/12/19 History Oxybutynin Chloride [Ditropan] 5 mg PO Q6-8HP PRN 11/12/19 11/12/19 History oxyCODONE HCL [Roxicodone] 20 mg PO Q6-8HP PRN 11/12/19 11/12/19 History tiZANidine [Zanaflex] 4 mg PO TID 11/13/19 11/13/19 History Calcium Acetate [Phoslo] 2,001 mg PO TIDCC 11/14/19 11/14/19 History oxyCODONE HCL [Roxicodone] 20 mg PO Q8HP PRN #36 tab 11/14/19 Rx Allergies Allergy/AdvReac Type Severity Reaction Status Date / Time dihydroergotamine AdvReac Intermediate Nausea Verified 11/01/19 09:57 ketorolac [From Toradol] AdvReac Mild Itching Verified 11/01/19 09:57 Medical - H&P: Exam - Constitutional Vitals: Temp Pulse Resp BP Pulse Ox 99.0 F 76 14 156/69 99 11/15/19 23:01 11/15/19 23:01 11/15/19 23:01 11/15/19 23:01 11/15/19 23:01 General appearance: average body habitus - Eye Eye exam: Present: normal appearance - ENT ENT exam: Present: mucous membranes dry - Neck Neck exam: Present: normal inspection - Respiratory Respiratory exam: Present: rales (right mid and lower lung). Absent: wheezes - Cardiovascular Cardiovascular exam: Present: normal rate and rhythm Additional comments: distended anterior upper chest veins - GI/Abdominal GI/Abdominal exam: Present: normal bowel sounds, soft - Extremities Exam Extremities exam: Present: normal inspection. Absent: calf tenderness, pedal edema - Neurological Exam Neurological exam: Present: alert, oriented X3 - Skin Skin exam: Present: dry, warm - Other Additional findings: right upper chest tunneled cath. no tenderness or fluctuance. no redness or increased warmth. Medical - H&P: Reslt - Labs CBC & Chem 7: 11/15/19 16:11 11/15/19 16:11 Labs: Short CBC 11/15/19 Range/Units 16:11 WBC 5.3 (4.50-11.00) K/mcL Hgb 7.7 L (11.2-15.7) g/dL Hct 23.1 L (34.1-44.9) % Plt Count 195 (140-440) K/mcL BMP 11/15/19 16:11 Sodium 133 Potassium 3.6 Chloride 90 L Carbon Dioxide 29 BUN 12 Creatinine 2.2 H Glucose 75 Calcium 8.6 Liver Function 11/15/19 Range/Units 16:11 Total Bilirubin 0.2 (0.0-1.0) mg/dL AST 16 (0-37) U/l ALT 9 (0-40) U/l Alkaline Phosphatase 116 (39-117) U/L Albumin 4.0 (3.2-5.2) gm/dL Urine 11/15/19 Range/Units 16:23 Urine Color Yellow Urine Appearance Cloudy Urine pH 8.0 (5.0-9.0) Ur Specific [place] 1.012 (1.000-1.035) Urine Protein >=500 A (NEG) mg/dL Urine Glucose (UA) 50 A (NEG) mg/dL - Imaging and Cardiology CT scan - chest Additional comments: right lower lung infiltrate mild Medical - H&P: A/P (1) Pneumonia Current visit: Yes Status: Acute right lower lung but no history of dysphagia, coughing choking. Will treat for lobar community acquired pneumonia with rocephin and azithromycin. received Vanco and zosyn in the EMD but not look septic currently. (2) Acute exacerbation of chronic obstructive airways disease Problem details: cont prn nebs. consider steroids Current visit: No Status: Acute (3) Chills with fever Problem details: will follow. WBC normal. not appear septic. The influenza A and B negative Current visit: No Status: Chronic
[2019-11-16] MEDS ORDERED: cefTRIAXone 1 GM VIAL ONE (00:08)
[2019-11-16] MEDS: oxyCODONE 10 MG TAB.ER.12H PO ONE ×2 (00:13→01:46)
[2019-11-16] MEDS: cefTRIAXone 1 GM VIAL IV SCH ×2 (00:13→14:07)
[2019-11-16] MEDS: oxyCODONE 20 MG TAB.ER.12H PO SCH ×5 (00:15→21:33)
[2019-11-16 04:41] LABS: Amphetamine Screen,Urine NONE DETECTED (NONDETECTED); Barbiturate Screen,Urine NONE DETECTED (NONDETECTED); Benzodiazepines Screen,Urine NONE DETECTED (NONDETECTED); Cannabinoid Screen,Urine NONE DETECTED (NONDETECTED); Cocaine Screen,Urine NONE DETECTED (NONDETECTED); Opiate Screen,Urine SUSPECT POSITIVE (NONDETECTED); Oxycodone, Urine Screen SUSPECT POSITIVE (NONDETECTED); Phencyclidine Screen,Urine NONE DETECTED (NONDETECTED)
--- NOTE | 2019-11-16 07:41 | Cat Scan Report ---
History: Hypoxia, fever and weakness TECHNIQUE: The chest was imaged without contrast at 2.5 mm intervals. Sagittal, coronal and axial MIPS images were created. The radiation exposure was limited using dose reduction technology. FINDINGS: Patient has mild to moderate bronchial wall thickening in both lungs with the greatest involvement in both lower lobes. There is mucus plugging in some of the third order bronchi in the lower lobes. There is also mild peribronchial pneumonia, best seen in the lung bases. Mild groundglass alveolar infiltrates are present. This is somewhat of a mosaic distribution and is most apparent in the upper lobes. In the lateral basal segment left lower lobe there is an oval subpleural 4 x 6 mm noncalcified nodule. This is unchanged from 03/24/19 and is probably benign. No pleural effusion is present. Heart is mildly enlarged. Moderate amount calcified plaque is present in the coronary arteries. There are a few reactive lymph nodes in the mediastinum. The largest is in the subcarinal space and measures 1.2 x 1.9 cm. There is a dilated vein anteriorly in the left side of the neck which has remained stable since prior chest CT. IMPRESSION: Bronchitis and bronchopneumonia Cardiomegaly. Superimposed congestive heart failure cannot be excluded. Dr. Vilchis was called with the results Interpreted and Authenticated by: Abdon Renee 11/16/19
[2019-11-16] MEDS ORDERED: DOCUSATE SODIUM 100 MG CAPSULE PO SCH (09:00)
[2019-11-16] MEDS: DOCUSATE SODIUM 100 MG CAPSULE PO SCH ×2 (09:10→21:33)
[2019-11-16] MEDS: AZITHROMYCIN 250 MG TABLET PO SCH (09:10)
--- NOTE | 2019-11-16 09:43 | Consultation ---
DATE OF CONSULTATION: 11/16/2019 REASON FOR CONSULTATION: End-stage renal disease. HISTORY OF PRESENT ILLNESS: The patient is a 64-year-old female with a history of end-stage renal disease on hemodialysis three times a week. She also has a history of HIV positive, very difficult to control hypertension, still substance use with marijuana, and excessive volume gain between dialysis treatments. She was in dialysis yesterday. She came in somewhat less responsive and as the dialysis progressed she became more and more unresponsive. For that reason, ambulance was called and was brought into the emergency room. She had episodes like this before and there were thoughts that it could have been related to a form of perfusion defects in her brain. In the emergency room, she did wake up. PAST MEDICAL HISTORY: Significant for: 1. End-stage renal disease on hemodialysis. 2. History of bowel surgery for weight loss. 3. Osteoporosis. 4. Depression. 5. History of upper GI bleed. 6. Hyperphosphatemia. 7. Posterior reversible encephalopathy syndrome. 8. History of seizure disorders. 9. COPD. 10. Hypertension, which is difficult to control. PAST SURGICAL HISTORY: Significant for: 1. History of gastric bypass. 2. Hysterectomy. 3. Peritoneal dialysis catheter placement in the past. 4. History of kidney biopsy. 5. History of cystourethroscopy with dilation of the ureteral strictures. FAMILY HISTORY: Mother of heart disease and high blood pressure. She also had breast cancer. Father of stomach cancer and heart disease. A sister has arthritis and thyroid problems. Daughter has migraines. SOCIAL HISTORY: The patient lives with her sister. She uses E-cigarettes. She smokes marijuana. CURRENT MEDICATIONS: 1. Amlodipine 10 mg once daily. 2. Amitriptyline. 3. Calcium acetate 2000 mg with meals. 4. Coreg 25 mg twice daily. 5. Zofran 4 mg p.r.n. 6. Clonidine patch once weekly. 7. Duloxetine 30 mg tablet, 90 mg once daily. 8. Famotidine 40 mg daily. 9. Lasix 80 mg daily. 10. Lisinopril 40 mg daily. 11. Cyclobenzaprine 10 mg daily. 12. Cephalexin 500 mg twice daily that she uses as needed. REVIEW OF SYSTEMS: Ten systems reviewed and as indicated in history of present illness. PHYSICAL EXAMINATION: GENERAL: Alert and oriented now. No distress. VITAL SIGNS: Blood pressures have been 159/82 with a pulse rate of 100, respiratory rate of 14, and T-max is 97.9. HEENT: NC/AT. Pupils are reactive to light. External ear and tympanic membranes appear normal. NECK: Supple. She does have about 10 cm of jugular venous distention. No lymphadenopathy. No thyromegaly. LUNGS: Decreased air entry bilaterally. Rales heard in both bases. CARDIAC: S1 and S2 heard. No S3, S4. No murmurs. No rubs. ABDOMEN: Soft, nontender. No organomegaly. Positive bowel sounds. No mass. No rebound. EXTREMITIES: Showed trace edema. Difficult to palpate a dorsalis pedis and posterior tibials. No skin rash or joint swelling noted. NEURO: Appears grossly intact. LABORATORY DATA: White count is 5.3 with a hemoglobin of 7.7 and a platelet count of 195. Sodium 132, potassium 3.5, chloride of 92, CO2 of 29, BUN of 12 with a creatinine of 2.2. ASSESSMENT AND PLAN: 1. End-stage renal disease on hemodialysis. A chest x-ray yesterday suggests possible pneumonia and there were bilateral interstitial lung markings. I wonder if this is possibly fluid overload. I will go ahead and do her dialysis today and remove 3 to 4 liters of fluid as tolerated because she is always constantly volume overloaded. Her electrolytes look okay from yesterday. 2. Anemia. Hemoglobin is quite low at 7.7. We probably need to recheck and if transfusion is needed, I will leave that up to the hospitalist. 3. Hypertension. Her blood pressures are slightly elevated. We will see how she does after fluid is removed with the dialysis. 4. Multiple other problems management per hospitalist. Kai Job ID: [id number] Doc ID: [id number] Giancarlo Pineda MD
[2019-11-16] MEDS: ACETAMINOPHEN 500 MG TABLET PO PRN (11:45)
--- NOTE | 2019-11-16 14:03 | Internal Med Progress Note ---
Medical - PN: Subj Patient information: Note initiated : 11/16/19 at 2:00 pm Service Date, if different from initiated Date: [] Patient: Shyann Ludwig 64 y/o F admitted on 11/15/19 for weakness. Chief Complaint: [] Interval history: pt still complaining of some yellow sputum. breathing and mentation both imp roved. She says cant remember why she is here. Yest low grade fever 99.2. also had hypoxemia but has had that some before. In EMD CXR ok but CT possible RLL. Pt rapidly improved with dialysis today and now off oxygen. Ct suggestive volume overload. Pt seen by Dr. Pineda and also discussed with Dr. Hyman just now. Pt with hx of missed dialysis and wet lungs as result before. WBC normal. Pt chronic smoker then vaping for last 3 years. Pertinent ROS: temp 99.2 - Constitutional Vitals: Vital Signs Temp Pulse Resp BP Pulse Ox 99.3 F H 80 16 167/96 99 11/16/19 13:40 11/16/19 13:40 11/16/19 12:00 11/16/19 13:40 11/16/19 08:00 Period Temp Pulse Resp BP Sys/Hanson Pulse Ox Last 24 Hr 96 F-99.3 F 60-87 10-21 123-179/60-102 83-100 Intake and Output 11/16/19 11/16/19 11/16/19 05:59 13:59 21:59 Intake Total 200 480 Balance 200 480 Weight 103 lb 8 oz Intake & Output: Intake & Output 11/16/19 11/16/19 11/16/19 05:59 13:59 21:59 Intake Total 200 480 Balance 200 480 Weight 103 lb 8 oz Intake: Oral 200 480 Other: Meal Breakfast Percent of Meal Consumed 50% Feeding Ability Assist with Tray Set Up General appearance: average body habitus, cooperative, no acute distress - Neck Neck exam: Present: normal inspection - Respiratory Respiratory exam: Present: rales (bibasilar trace crackles. better after deep breaths) - Cardiovascular Cardiovascular exam: Present: normal rate and rhythm - Extremities Exam Extremities exam: Present: normal inspection, Foot pink and warm. Absent: calf tenderness, pedal edema - Neurological Exam Neurological exam: Present: alert, oriented X3 Medical - PN: Obj Da - Labs CBC & Chem 7: 11/15/19 16:11 11/15/19 16:11 Labs: Abnormal Lab Results 11/15/19 11/15/19 11/15/19 16:23 16:23 16:11 RBC Hgb Hct POC Hct 23.0 L Lymph # (Auto) POC Sodium 132 L POC Chloride 92 L Chloride 90 L POC Total CO2 33 H Creatinine 2.2 H POC Creatinine 2.2 H POC WB Ioniz Calcium 1.06 L Urine Protein >=500 A Urine Glucose (UA) 50 A Urine Occult Blood 0.03 A Ur Leukocyte Esterase 500 A Urine RBC 125 H Urine WBC > 182 H Urine Opiates Screen Suspect positive A Ur Oxycodone Screen Suspect positive A 11/15/19 16:11 RBC 2.44 L Hgb 7.7 L Hct 23.1 L POC Hct Lymph # (Auto) 1.37 L POC Sodium POC Chloride Chloride POC Total CO2 Creatinine POC Creatinine POC WB Ioniz Calcium Urine Protein Urine Glucose (UA) Urine Occult Blood Ur Leukocyte Esterase Urine RBC Urine WBC Urine Opiates Screen Ur Oxycodone Screen Meds: Medications Acetaminophen (Tylenol) 500 mg PO Q4HP PRN; Protocol PRN Reason: Per Pain Protocol/Fever > 101 Last Admin: 11/16/19 11:45 Dose: 500 mg Documented by: Azithromycin (Zithromax) 500 mg PO DAILY [facility]; Protocol Stop: 11/19/19 09:01 Last Admin: 11/16/19 09:10 Dose: 500 mg Documented by: Ceftriaxone Sodium (Rocephin) 1 gm IV Q24H [facility]; Protocol Stop: 11/24/19 23:31 Last Admin: 11/16/19 00:13 Dose: 1 gm Documented by: Docusate Sodium (Colace) 100 mg PO BID [facility] Last Admin: 11/16/19 09:10 Dose: 100 mg Documented by: Ondansetron HCl (Zofran) 4 mg IV Q6HP PRN PRN Reason: Nausea And Vomiting Oxycodone HCl (Oxycontin) 20 mg PO QID [facility]; Protocol Last Admin: 11/16/19 12:54 Dose: 20 mg Documented by: Senna (Senokot) 2 tab PO [facility] Medical - PN: A/P - Time Spent With Patient Total time spent is greater than 50% in coordination of care (as documented) at patient's floor/unit and/or counseling patient: Greater than 35 minutes (1) Volume overload Problem details: hx of volume overload and lack of high fever, or elevated wbc. Status: Chronic Assessment and plan: continue dialysis. plan discharge in morning Current Visit: No (2) Pneumonia Problem details: clinically may not be pneumonia. will check a sputum culture. repeat cbc in morning. Status: Acute Current Visit: Yes (3) Acute exacerbation of chronic obstructive airways disease Problem details: cont prn nebs. consider steroids Status: Acute Current Visit: No (4) Chills with fever Problem details: will follow. WBC normal. not appear septic. The influenza A and B negative Status: Chronic Current Visit: No
[2019-11-16] MEDS ORDERED: FUROSEMIDE 80 MG TABLET PO PRN (18:49)
[2019-11-16] MEDS ORDERED: LOPERAMIDE 2 MG CAPSULE PO PRN (18:49)
[2019-11-16] MEDS ORDERED: ONDANSETRON 4 MG ODT TABLET SL PRN (18:49)
[2019-11-16] MEDS ORDERED: DICYCLOMINE 20 MG TABLET PO PRN (18:49)
[2019-11-16] MEDS ORDERED: CYCLOBENZAPRINE 10 MG TABLET PO PRN (18:49)
[2019-11-16] MEDS ORDERED: CALCIUM ACETATE 667 MG CAPSULE PO PRN (18:49)
[2019-11-16] MEDS ORDERED: TENOFOVIR DISOPROXIL FUMARATE 300 MG PO SCH (19:00)
[2019-11-16] MEDS ORDERED: LISINOPRIL 20 MG TABLET PO SCH (21:00)
[2019-11-16] MEDS ORDERED: SENNOSIDES 1 TABLET PO SCH ×2 (21:00)
[2019-11-16] MEDS ORDERED: AMITRIPTYLINE 25 MG TABLET PO SCH (21:00)
[2019-11-16] MEDS: IPRATROPIUM BROMIDE 1 PUFF INHALER INH SCH (21:31)
[2019-11-16] MEDS: tiZANidine 4 MG TABLET PO SCH (21:33)
[2019-11-16] MEDS: cloNIDine HCL 0.1 MG TABLET PO SCH (21:33)
[2019-11-16] MEDS: amLODIPine 10 MG TABLET PO SCH (21:33)
[2019-11-16] MEDS: levETIRAcetam 500 MG TABLET PO SCH (21:33)
[2019-11-16] MEDS: FAMOTIDINE 20 MG TABLET PO SCH (21:37)
[2019-11-17 06:51] LABS: Basophils # (Auto) 0.04 K/mcL (0.00-0.30); Basophils % (Auto) 0.9 % (0.0-2.0); Eosinophils # (Auto) 0.14 K/mcL (0.00-0.70); Hematocrit 23.4 % (34.1-44.9); Hemoglobin 7.6 g/dL (11.2-15.7); Lymphocytes # (Auto) 1.32 K/mcL (1.50-4.80); Lymphocytes % (Auto) 28.6 % (15.5-49.0); Mean Cell Volume 95.1 fL (80.0-100.0); Mean Corpuscular HGB Conc 32.5 g/dL (31.0-36.0); Mean Platelet Volume 8.8 fL (7.4-10.4); Monocytes # (Auto) 0.53 K/mcL (0.10-0.90); Monocytes % (Auto) 11.5 % (1.0-12.0); Platelet Count 189 K/mcL (140-440); RBC 2.46 M/mcL (3.59-5.38); Red Cell Distribution Width 13.2 % (11.5-14.5); WBC 4.6 K/mcL (4.50-11.00)
[2019-11-17] MEDS: ACETAMINOPHEN 500 MG TABLET PO PRN (07:30)
[2019-11-17 07:40] LABS: Calcium 8.5 mg/dl (8.6-10.4); Carbon Dioxide 23 mmol/L (22-30); Glucose 94 mg/dL (70-105)
[2019-11-17 07:50] LABS: Blood Urea Nitrogen 32 mg/dl (8-23); Chloride 86 mmol/L (96-108); Glomerular Filtration Rate 6
[2019-11-17] MEDS ORDERED: CALCIUM ACETATE 667 MG CAPSULE PO SCH (08:00)
[2019-11-17] MEDS ORDERED: CARVEDILOL 12.5 MG TABLET PO SCH (08:00)
[2019-11-17] MEDS ORDERED: DOLUTEGRAVIR PO SCH (09:00)
[2019-11-17] MEDS ORDERED: DULoxetine 30 MG CAPSULE PO SCH (09:00)
[2019-11-17] MEDS ORDERED: RILPIVIRINE 25 MG PO SCH (09:00)
[2019-11-17] MEDS ORDERED: [UNRECOGNIZED DRUG - REMARK] PO SCH (09:00)
--- NOTE | 2019-11-17 09:05 | Nephrology Progress Note ---
Subjective Patient information: Note initiated : 11/17/19 at 9:02 am Service Date, if different from initiated Date: [] Patient: Shyann Ludwig 64 y/o F admitted on 11/15/19 for weakness. Chief Complaint: [] She had dialysis yesterday. She had another episode of amnesia. She is better this morning. Objective - Vital Signs Vital signs: Vital Signs Temp Pulse Pulse Pulse Resp BP BP 11/17/19 07:32 97.9 F 14 136/71 11/17/19 04:00 97.8 F 69 16 154/88 11/16/19 23:35 97.9 F 70 14 129/72 11/16/19 20:00 98.4 F 68 73 20 156/90 11/16/19 19:00 20 11/16/19 16:00 99.1 F H 20 154/84 11/16/19 13:40 99.3 F H 80 167/96 11/16/19 13:30 77 152/91 11/16/19 13:15 80 159/100 11/16/19 13:00 60 179/95 11/16/19 12:45 67 175/94 11/16/19 12:30 98.7 F 70 168/102 11/16/19 12:15 68 163/91 11/16/19 12:00 99.2 F H 67 68 16 153/89 163/91 11/16/19 11:40 99.2 F H 73 157/94 Pulse Ox 11/17/19 07:32 95 11/17/19 04:00 95 11/16/19 23:35 94 11/16/19 20:00 95 11/16/19 19:00 11/16/19 16:00 95 11/16/19 13:40 11/16/19 13:30 11/16/19 13:15 11/16/19 13:00 11/16/19 12:45 11/16/19 12:30 11/16/19 12:15 11/16/19 12:00 11/16/19 11:40 Intake and Output 11/16/19 11/17/19 11/17/19 21:59 05:59 13:59 Intake Total 540 520 Balance 540 520 Intake: Oral 540 520 Other: Meal Dinner Percent of Meal Consumed 75% Feeding Ability Assist with Tray Set Up Weight 97 lb 8 oz Intake & Output: Intake & Output 11/16/19 11/17/19 11/17/19 21:59 05:59 13:59 Intake Total 540 520 Balance 540 520 Weight 97 lb 8 oz Intake: Oral 540 520 Other: Meal Dinner Percent of Meal Consumed 75% Feeding Ability Assist with Tray Set Up - General Appearance General appearance: cachectic EENT: ATNC Neck: no JVD Cardiology: holosystolic murmur Gastrointestinal: hypoactive bowel sounds Integumentary: no rash Neurologic: no focal deficit Musculoskeletal: no deformities - Lab 11/17/19 06:16 11/17/19 06:16 Most recent lab results Calcium 8.5 mg/dl (8.6-10.4) L 11/17/19 06:16 Magnesium 2.0 mg/dL (1.6-2.5) 11/15/19 16:11 Assessment and Plan (1) End stage renal disease on dialysis Status: Chronic Comment: Admitted with fluid overload and change in mental status. Had UF yesterday. BP is better.
[2019-11-17] MEDS: cefTRIAXone 1 GM VIAL IV SCH (09:10)
[2019-11-17] MEDS: AZITHROMYCIN 250 MG TABLET PO SCH (09:10)
[2019-11-17] MEDS: FAMOTIDINE 20 MG TABLET PO SCH (09:10)
[2019-11-17] MEDS: tiZANidine 4 MG TABLET PO SCH (09:10)
[2019-11-17] MEDS: oxyCODONE 20 MG TAB.ER.12H PO SCH (09:11)
[2019-11-17] MEDS: DOCUSATE SODIUM 100 MG CAPSULE PO SCH (09:11)
[2019-11-17] MEDS: levETIRAcetam 500 MG TABLET PO SCH (09:11)
[2019-11-17] MEDS: amLODIPine 10 MG TABLET PO SCH (09:12)
[2019-11-17] MEDS: cloNIDine HCL 0.1 MG TABLET PO SCH (09:12)
[2019-11-17] MEDS: IPRATROPIUM BROMIDE 1 PUFF INHALER INH SCH (09:13)
--- NOTE | 2019-11-17 09:30 | Discharge Summary ---
Medical - DS: Prov Patient information: Note initiated : 11/17/19 at 9:28 am Service Date, if different from initiated Date: [] Patient: Shyann Ludwig 64 y/o F admitted on 11/15/19 for weakness. Chief Complaint: [hypoxemia, temp 99] Date of admission: 11/15/19 22:40 Discharge date: 11/17/19 Primary care physician: eRne Belcher DO Attending physician on admission: Eron Luong Consults: 11/15/19 Consult to Physician [CONS] Stat Comment: Consulting Provider: Eron Luong Reason For Exam: Physician to Consult Dr. Pineda Nephrology Attending physician on discharge: Eron Luong Discharging clinician: Eron Luong Medical - DS: Meds - Discharge Medications Prescriptions: Doxycycline Monohydrate [Monodox] 100 mg PO BID 4 Days #8 cap Transmission Status: Pending to [employer] [id number] Active and Home Medications: Home Medications amlodipine 10 mg tablet 10 mg PO BID 04/17/19 [History Confirmed 11/15/19 Last Taken 11/14/19 21:00] Amitriptyline [Elavil] 50 mg PO HS 07/10/19 [History Confirmed 11/15/19 Last Taken 11/14/19 21:00] Calcium Acetate [Phoslo] 2,001 mg PO DAILYP PRN 07/10/19 [History Confirmed 11/15/19 Last Taken 1 Day Ago ~11/11/19 2001 mg] Carvedilol [Coreg] 25 mg PO BID 07/10/19 [History Confirmed 11/16/19 Last Taken 11/15/19 09:00 25 mg.] Ondansetron [Zofran ODT] 4 mg SL Q6HP PRN 07/10/19 [History Confirmed 11/15/19 Last Taken 11/14/19 09:00] cloNIDine TTS 2 [Catapres Tts 2] 1 patch TD WEEKLY #4 patch 07/12/19 [Rx Confir med 11/16/19 Last Taken 11/10/19 0.2 mg] clonidine HCl 0.2 mg tablet 0.2 mg PO TID tab 08/22/19 [History Confirmed 11/15/19 Last Taken 11/14/19] dicyclomine 10 mg capsule 10 mg PO DAILYP PRN cap 08/22/19 [History Confirmed 11/15/19 Last Taken 11/11/19] dolutegravir 50 mg-rilpivirine 25 mg tablet 1 tab PO DAILY #90 tab 08/22/19 [Rx Confirmed 11/16/19 Last Taken 11/15/19 08:00 1 tab] duloxetine 30 mg capsule,delayed release 90 mg PO DAILY cap 08/22/19 [History Confirmed 11/15/19 Last Taken 11/14/19 09:00] famotidine 40 mg tablet 40 mg PO BID 08/22/19 [History Confirmed 11/15/19 Last Taken 11/14/19 09:00] furosemide 80 mg tablet 80 mg PO QDAY PRN #30 tab 08/22/19 [Rx Confirmed 11/15/19 Last Taken 11/14/19 09:00] ipratropium bromide 17 mcg/actuation HFA aerosol inhaler 1 puff INHALATION BID g 08/22/19 [History Confirmed 11/16/19 Last Taken 11/11/19] lisinopril 40 mg tablet 40 mg PO HS 08/22/19 [History Confirmed 11/15/19 Last Taken 11/14/19 12:00] loperamide 2 mg capsule 2 mg PO Q2-4HP PRN 08/22/19 [History Confirmed 11/15/19 Last Taken 11/14/19 09:00] tenofovir disoproxil fumarate 300 mg tablet 300 mg PO WEEKLY #12 tab 08/22/19 [Rx Confirmed 11/15/19 Last Taken 11/12/19 09:00] levetiracetam 250 mg tablet 500 mg PO BID #360 tab 10/04/19 [Rx Confirmed 11/15/19 Last Taken 11/14/19 09:00] Cyclobenzaprine HCl 10 mg PO TIDP PRN 11/12/19 [History Confirmed 11/15/19 Last Taken 11/11/19] oxyCODONE HCL [Roxicodone] 20 mg PO Q6-8HP PRN 11/12/19 [History Confirmed 11/15/19 Last Taken 11/14/19 09:00] tiZANidine [Zanaflex] 4 mg PO TID 11/13/19 [History Confirmed 11/15/19 Last Taken 11/14/19 09:00] Calcium Acetate [Phoslo] 2,001 mg PO TIDCC 11/14/19 [History Confirmed 11/15/19 Last Taken 11/14/19 21:00] oxyCODONE HCL [Roxicodone] 20 mg PO Q8HP PRN #36 tab 11/14/19 [Rx Confirmed 11/15/19 Last Taken Unknown] Medical - DS: Hosp Hospital Course: 64 yo WF admitted with hypoxemia at the dialysis center. Temp 99 and pt with some confusion. Sent to EMD the CXR but CT possible pneumonia so admitted. EMD physician concerned she might be septic and gave zosyn and vanco. ultimately the CT looks more like CHF and pt has know hx of pulm edema without leg swelling due to missed dialysis and above typical dialysis pt fluid intake (noncompliance with fluid restriction). Pt was dialyzed here yesterday and no longer requires oxygen. She reports yellow sputum and that was sent to lab. She was switched to rocephin and azithro on admission and will be further simplified to 4 more days of doxycycline. The pts procalcitonin today 0.94 (equivocal) Influenza negative and WBC has been normal. I counseled pt to stop vaping for her health. Also discussed fluid restriction and she says no particular fluid amount restriction. She just tries to keep below 49kg on return to dialysis days. pt request from me oxycodone prescription. I declined. She should have more than her usual supply due to being in the hospital 2 days. Discharge diagnosis: volume overload Secondary discharge diagnosis: bronchitis vs atypical pneumonia ESRD on dialysis HIV noncompliance with fluid restriction Time spent discussing smoking cessation with patient: 3 to 10 minutes (stop vaping) - Time Spent with Patient Total time spent providing and/or coordinating discharge services: Greater than 30 minutes Specific discharge activities: fluid counseling, abx counseling and stop vaping, smoking Medical - DS: Exam - Constitutional Vitals: Vital Signs Temp Pulse Pulse Pulse Resp BP BP 11/17/19 07:32 97.9 F 14 136/71 11/17/19 04:00 97.8 F 69 16 154/88 11/16/19 23:35 97.9 F 70 14 129/72 11/16/19 20:00 98.4 F 68 73 20 156/90 11/16/19 19:00 20 11/16/19 16:00 99.1 F H 20 154/84 11/16/19 13:40 99.3 F H 80 167/96 11/16/19 13:30 77 152/91 11/16/19 13:15 80 159/100 11/16/19 13:00 60 179/95 11/16/19 12:45 67 175/94 11/16/19 12:30 98.7 F 70 168/102 11/16/19 12:15 68 163/91 11/16/19 12:00 99.2 F H 67 68 16 153/89 163/91 11/16/19 11:40 99.2 F H 73 157/94 Pulse Ox 11/17/19 07:32 95 11/17/19 04:00 95 11/16/19 23:35 94 11/16/19 20:00 95 11/16/19 19:00 11/16/19 16:00 95 11/16/19 13:40 11/16/19 13:30 11/16/19 13:15 11/16/19 13:00 11/16/19 12:45 11/16/19 12:30 11/16/19 12:15 11/16/19 12:00 11/16/19 11:40 Intake and Output 11/16/19 11/17/19 11/17/19 21:59 05:59 13:59 Intake Total 540 520 Balance 540 520 Intake: Oral 540 520 Other: Meal Dinner Percent of Meal Consumed 75% Feeding Ability Assist with Tray Set Up Weight 97 lb 8 oz General appearance: average body habitus, cooperative - Respiratory Respiratory exam: Present: normal respiratory exam, CTAB, prolonged expiratory phase. Absent: rales, wheezes - Cardiovascular Cardiovascular exam: Present: normal rate and rhythm - Extremities Exam Extremities exam: Absent: pedal edema - Neurological Exam Neurological exam: Present: alert, oriented X3 - Psychiatric Psychiatric exam: Present: normal affect, normal mood - Skin Skin exam: Present: dry, warm Medical - DS: Data Procedures and tests throughout hospitalization: dialysis Labs on day of discharge: Labs from last 24 hours 11/17/19 11/17/19 11/17/19 06:16 06:16 06:16 WBC 4.6 RBC 2.46 L Hgb 7.6 L Hct 23.4 L MCV 95.1 MCH 30.9 MCHC 32.5 RDW 13.2 Plt Count 189 MPV 8.8 Gran % 56.0 Lymph % (Auto) 28.6 [place] % (Auto) 11.5 Eos % (Auto) 3.0 Baso % (Auto) 0.9 Gran # 2.59 Lymph # (Auto) 1.32 L [place] # (Auto) 0.53 Eos # (Auto) 0.14 Baso # (Auto) 0.04 Sodium 126 L Potassium 4.3 Chloride 86 L Carbon Dioxide 23 Anion Gap 17.0 H BUN 32 H Creatinine 6.3 H* GFR Calculation 6 Glucose 94 Calcium 8.5 L Procalcitonin 0.94 Preliminary micro results at discharge 11/15/19 16:45 Blood Culture - Preliminary Blood 11/15/19 16:35 Blood Culture - Preliminary Blood 11/15/19 16:23 Urine Culture - Preliminary Urine - Clean Void Mid-Stream - Imaging and Cardiology CT scan - chest Status: image reviewed by me (volume overload. cant exclude RLL infiltrate) Medical - DS: A/P - Patient/Caregiver Discharge Instructions Activity: ambulate only with your walker Diet: Renal - Problem Maintenance (1) Volume overload Status: Acute Comment: hx of volume overload and lack of high fever, or eleva anna wbc. Qualifiers: Hypervolemia type: other Qualified Code(s): E87.79 - Other fluid overload (2) Pneumonia Status: Acute Comment: clinically may not be pneumonia. will check a sputum culture. repeat cbc in morning. Qualifiers: Pneumonia type: due to unspecified organism Laterality: right Lung location: lower lobe of lung Qualified Code(s): J18.9 - Pneumonia, unspecified organism (3) Acute exacerbation of chronic obstructive airways disease Status: Acute Comment: cont prn nebs. consider steroids (4) Chills with fever Status: Chronic Comment: will follow. WBC normal. not appear septic. The influenza A and B negative - Follow up Plan Follow up with: Rene Belcher DO [Primary Care Provider] - Giancarlo Pineda MD [Physician] - (Keep any scheduled appointments. Keep your dialysis appointment.) Disposition: Home, Self-Care Care Plan Goals: This discharge packet is provided to you to help keep you informed about your care. We want to ensure you get everything you need when you go home. You will also be receiving a call from us in a few days to follow up with you and see how you are doing since your discharge. This gives us a chance to listen to any concerns you maybe experiencing since you were discharged or any additional needs you may have, as well as providing us feedback on your care experience. We strive to always provide excellent care and thank you for your feedback and for choosing [facility]. Prognosis: Fair Rehab Potential: Good I certify that the patient requires SNF services: No Overall status at discharge: patient is progressing back to baseline
[2019-11-17] MEDS ORDERED: cloNIDine TTS 2 1 PATCH PATCH TD SCH (10:00)
[2019-11-18 17:06] LABS: Opiate Confirmation POSITIVE (N)
== END 2019-11-17 10:30 | disposition home or self-care (01) ==
LOC: MEDSUR 15:23 → ED 15:23 → MEDSUR 22:40
PROVIDERS: ADMIT Internal Medicine; ATTEND Internal Medicine

== ENCOUNTER 2019-12-08 04:17 | Inpatient (IN) ==
--- NOTE | 2019-12-08 04:36 | Emergency Department Note ---
SOB HPI - General Chief Complaint: Shortness of Breath/Dyspnea Stated Complaint: shortness of breath Time Seen by Provider: 12/08/19 04:32 Source: patient Mode of arrival: EMS Limitations: no limitations - History of Present Illness 64-year old patient presenting with chief complaint of dyspnea. Patient's dyspnea arose over the course of 2 days. Patient with associated symptoms of gradual progression, recent dialysis on Wednesday. Past medical history is significant for CHF, deconditioning, chronic renal failure. This patient's dyspnea was exacerbated by exertion within 50-100 feet of walking. Also was not associated with a nocturnal component. Symptoms are continuous and gradually progressive. Additional associated symptoms such as cough, sputum production, nasal congestion, chest pain, peripheral edema, joint swelling, muscle weakness were also inquired and pt primarily complained of generalized pain. Patient primarily with dyspnea sensation of air hunger/working very hard to breathe. - Related Data Home Medications Medication Instructions Recorded Confirmed amlodipine 10 mg tablet 10 mg PO BID 04/17/19 12/08/19 Amitriptyline [Elavil] 50 mg PO HS 07/10/19 12/08/19 Calcium Acetate [Phoslo] 2,001 mg PO DAILYP PRN 07/10/19 12/08/19 Carvedilol [Coreg] 25 mg PO BID 07/10/19 12/08/19 Ondansetron [Zofran ODT] 4 mg SL Q6HP PRN 07/10/19 12/08/19 clonidine HCl 0.2 mg tablet 0.2 mg PO TID tab 08/22/19 12/08/19 dicyclomine 10 mg capsule 10 mg PO DAILYP PRN cap 08/22/19 12/08/19 duloxetine 30 mg capsule,delayed 90 mg PO DAILY cap 08/22/19 12/08/19 release famotidine 40 mg tablet 40 mg PO BID 08/22/19 12/08/19 ipratropium bromide 17 1 puff INHALATION BID g 08/22/19 12/08/19 mcg/actuation HFA aerosol inhaler lisinopril 40 mg tablet 40 mg PO HS 08/22/19 12/08/19 loperamide 2 mg capsule 2 mg PO Q2-4HP PRN 08/22/19 12/08/19 Cyclobenzaprine HCl 10 mg PO TIDP PRN 11/12/19 12/08/19 oxyCODONE HCL [Roxicodone] 20 mg PO Q6-8HP PRN 11/12/19 12/08/19 tiZANidine [Zanaflex] 4 mg PO TID 11/13/19 12/08/19 Calcium Acetate [Phoslo] 2,668 mg PO TIDCC 11/14/19 12/09/19 Previous Rx's Medication Instructions Recorded cloNIDine TTS 2 [Catapres Tts 2] 1 patch TD WEEKLY #4 patch 07/12/19 furosemide 80 mg tablet 80 mg PO QDAY PRN #30 tab 08/22/19 levetiracetam 250 mg tablet 500 mg PO BID #360 tab 10/04/19 Acetaminophen [Tylenol] 500 mg PO Q4HP PRN tab 11/17/19 dolutegravir 50 mg-rilpivirine 25 1 tab PO DAILY #90 tab 11/21/19 mg tablet tenofovir disoproxil fumarate 300 300 mg PO WEEKLY #14 tab 11/21/19 mg tablet Allergies Allergy/AdvReac Type Severity Reaction Status Date / Time dihydroergotamine AdvReac Mild Nausea Verified 11/21/19 14:13 ketorolac [From Toradol] AdvReac Mild Itching Verified 11/21/19 14:13 Review of Systems All systems ED: reviewed and negative except as stated. 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) Pyelonephritis (Acute) Stomach ulcer (Chronic) Seizures (Chronic) Osteoporosis (Chronic) Kidney stones (Acute) Kidney failure (Chronic) Joint pain (Chronic) Daytime sleepiness (Chronic) Muscle pain (Chronic) Anxiety (Chronic) 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) Tobacco abuse (Chronic) Depression (Chronic) Opioid dependence (Chronic) Upper GI bleed (Chronic) Aspiration pneumonia (Chronic) Hyperphosphatemia (Chronic) Hyperkalemia (Chronic) Volume overload (Acute) Metabolic acidosis (Chronic) Posterior reversible encephalopathy syndrome (Chronic) History of seizures (Chronic 09/2018) Anemia in chronic kidney disease (CKD) (Acute) End stage renal disease on dialysis (Chronic) Migraines (Chronic) Renal disease (Chronic) Chronic GERD (Chronic) COPD (chronic obstructive pulmonary disease) (Chronic) Chronic pain (Chronic) Hemodialysis status (Chronic) N&V (nausea and vomiting) (Chronic) Arthritis (Chronic) HIV (human immunodeficiency virus infection) (Chronic 2000) HTN (hypertension) (Acute) End stage renal disease on dialysis (Chronic) Nausea and vomiting (Chronic) Diarrhea (Chronic) Flank pain (Chronic) Hypokalemia (Chronic) HIV (human immunodeficiency virus infection) (Chronic) Acute respiratory failure (Chronic) Encounter for medication refill (Chronic) Medical history: Reports: GERD, HIV/AIDS, hypertension, migraine, renal disease (End-stage) Surgical history ED: Reports: other (Gastric bypass, lithotripsy) - Social History smoking status: Current every day smoker Physical Exam Vital signs and evaluated for evidence of hypoxia or hemodynamic compromise specifically tachycardia/hypotension General: Alert, interactive, appropriate Head: Atraumatic, normocephalic Eyes: Extraocular movements intact, PERRLA Neck: Trachea midline, full range of motion Chest: Symmetrical chest wall rise, diffuse coarse breath sounds, poor air movement Cardiovascular: Patient with excellent perfusion to the extremities, regular rate and rhythm without M/R/G Abdomen: Nontender nondistended normoactive bowel sounds no masses no hepatosplenomegaly no rebound no guarding Extremities: Full range of motion joints, warm well perfused Neuro: Alert, oriented x3, cranial nerves II through XII grossly intact, normal gait Psychiatric: Normal affect normal mood Limitations: no limitations Course Vital Signs Temperature 98.0 F 12/08/19 04:18 Pulse Rate 95 H 12/08/19 04:18 Respiratory Rate 19 12/08/19 04:18 Blood Pressure 240/118 12/08/19 04:18 Pulse Oximetry (%) 96 12/08/19 04:18 Temperature 97.2 F 12/09/19 16:00 Pulse Rate 68 12/09/19 16:07 Respiratory Rate 11 L 12/09/19 16:07 Blood Pressure 108/68 12/09/19 16:00 Pulse Oximetry (%) 97 12/09/19 16:07 Shortness of Breath/Dyspnea - [facility] Narrative Medical decision making narrative: Acute dyspnea differential diagnosis considered in this case included ND, heart failure, cardiac tamponade, bronchospasm, pulmonary embolism, pneumothorax, pneumonia or infection, and upper airway obstruction. After review of chart and patient history/physical exam/labs as well as imaging the differential diagnosis addressed was acute hypoxic respiratory failure, COPD exacerbation, pneumonia, sepsis, pulmonary edema, pneumothorax, metabolic acidosis, acute respiratory distress syndrome, panic attack, airflow obstruction, restrictive lung disease, aspiration, congestive heart failure, hypercapnia, influenza, bronchitis, upper respiratory infection, pulmonary embolism, cardiac tamponade, valvular obstruction, ND/ACS, and arrhythmia in my medical opinion this patient has dyspnea that reasonably does require admission to the hospital. This patient has congestive heart failure secondary to volume overload as the principal etiology of her issues. I discussed the case with Dr. Pineda nephrology and the consensus medical opinion is to admit the patient for dialysis. Patient was treated in the ED with primarily lab evaluation and 2 doses of labetalol as well as 1 dose of hydralazine did get 20% reduction in her systolic blood pressure at time of this documentation. - Lab Data Result diagrams: 12/09/19 05:12 12/09/19 05:12 Lab Results 12/08/19 12/08/19 12/08/19 Range/Units 04:45 04:45 04:45 WBC 7.7 (4.50-11.00) K/mcL RBC 3.35 L (3.59-5.38) M/mcL Hgb 10.6 L (11.2-15.7) g/dL Hct 33.2 L (34.1-44.9) % MCV 99.1 (80.0-100.0) fL MCH 31.6 (26.0-34.0) pg MCHC 31.9 (31.0-36.0) g/dL RDW 15.4 H (11.5-14.5) % Plt Count 149 (140-440) K/mcL MPV 9.3 (7.4-10.4) fL Gran % 75.9 (38.0-78.0) % Lymph % (Auto) 15.3 L (15.5-49.0) % [place] % (Auto) 6.7 (1.0-12.0) % Eos % (Auto) 1.7 (0.0-7.0) % Baso % (Auto) 0.4 (0.0-2.0) % Gran # 5.82 (1.80-8.00) K/mcL Lymph # (Auto) 1.17 L (1.50-4.80) K/mcL [place] # (Auto) 0.51 (0.10-0.90) K/mcL Eos # (Auto) 0.13 (0.00-0.70) K/mcL Baso # (Auto) 0.03 (0.00-0.30) K/mcL Sodium 131 L (133-145) mmol/L Potassium 5.0 (3.3-5.1) mmol/L Chloride 90 L (96-108) mmol/L Carbon Dioxide 22 (22-30) mmol/L Anion Gap 19.0 H (8-16) BUN 37 H (8-23) mg/dl Creatinine 5.1 H* (0.6-1.1) mg/dl GFR Calculation 8 Glucose 91 (70-105) mg/dL Calcium 8.5 L (8.6-10.4) mg/dl Total Bilirubin 0.4 (0.0-1.0) mg/dL AST 19 (0-37) U/l ALT 16 (0-40) U/l Alkaline Phosphatase 115 (39-117) U/L NT-Pro-B Natriuret Pep > 26221.0 H (0-125) pg/ml Total Protein 7.2 (5.9-8.4) gm/dL Albumin 4.1 (3.2-5.2) gm/dL Globulin 3.1 (2.2-3.7) gm/dL Albumin/Globulin Ratio 1.3 (1.0-2.3) Disposition Pt seen by LOAD DISPATCHER LOCAL/PA only: No Clinical Impression: Dyspnea Qualifiers: Dyspnea type: shortness of breath Qualified Code(s): R06.02 - Shortness of breath; R06.00 - Dyspnea, unspecified; R06.01 - Orthopnea Hypertension Qualifiers: Hypertension type: unspecified Qualified Code(s): I10 - Essential (primary) hypertension CHF (congestive heart failure) Qualifiers: Heart failure type: combined systolic and diastolic Heart failure chronicity: acute on chronic Qualified Code(s): I50.43 - Acute on chronic combined systolic (congestive) and diastolic (congestive) heart failure Disposition: Xfer As Inpt ([facility]) Condition: Fair
[2019-12-08] MEDS ORDERED: LABETALOL 5 MG/ML ML IV ONE ×2 (04:39→05:05)
--- NOTE | 2019-12-08 05:47 | XRay Report ---
CLINICAL INFORMATION:Dyspnea TECHNIQUE: Portable semiupright chest x-ray COMPARISON: Chest x-rays dated 11/15/2019, 07/10/2019, 08/17/2018 FINDINGS:Large caliber right central venous catheter with its tip in the right atrium. This is unchanged. Right hemidiaphragm is mildly elevated, unchanged Bilateral diffuse pulmonary parenchymal infiltrates. These are worse than on 11/15/2019 not as severe as on 07/10/2019. Infiltrates may be due to interstitial pulmonary edema. Interstitial pneumonia is possible. Clinical correlation and follow-up radiographs are recommended. There is no dense consolidation. No evidence for significant pleural effusion. IMPRESSION: 1. Diffuse interstitial infiltrates, findings are worse than on 11/15/2019 2. Findings may be due to interstitial edema or pneumonia Interpreted and Authenticated by: Rene Corcoran 12/08/19
[2019-12-08] MEDS ORDERED: HYDROmorphone 2 MG/ML VIAL IV ONE ×2 (05:48→09:30)
[2019-12-08 06:21] LABS: ALT/SGPT 16 U/l (0-40); AST/SGOT 19 U/l (0-37); Albumin 4.1 gm/dL (3.2-5.2); Albumin/Globulin Ratio 1.3 (1.0-2.3); Alkaline Phosphatase 115 U/L (39-117); Bilirubin,Total 0.4 mg/dL (0.0-1.0); Calcium 8.5 mg/dl (8.6-10.4); Carbon Dioxide 22 mmol/L (22-30); Globulin 3.1 gm/dL (2.2-3.7); Glucose 91 mg/dL (70-105)
[2019-12-08 06:25] LABS: Basophils # (Auto) 0.03 K/mcL (0.00-0.30); Basophils % (Auto) 0.4 % (0.0-2.0); Eosinophils # (Auto) 0.13 K/mcL (0.00-0.70); Eosinophils % (Auto) 1.7 % (0.0-7.0); Granulocytes % (Auto) 75.9 % (38.0-78.0); Hematocrit 33.2 % (34.1-44.9); Hemoglobin 10.6 g/dL (11.2-15.7); Lymphocytes # (Auto) 1.17 K/mcL (1.50-4.80); Lymphocytes % (Auto) 15.3 % (15.5-49.0); Mean Cell Volume 99.1 fL (80.0-100.0); Mean Corpuscular HGB Conc 31.9 g/dL (31.0-36.0); Mean Platelet Volume 9.3 fL (7.4-10.4); Monocytes # (Auto) 0.51 K/mcL (0.10-0.90); Monocytes % (Auto) 6.7 % (1.0-12.0); Platelet Count 149 K/mcL (140-440); RBC 3.35 M/mcL (3.59-5.38); Red Cell Distribution Width 15.4 % (11.5-14.5); WBC 7.7 K/mcL (4.50-11.00)
[2019-12-08 06:26] LABS: Blood Urea Nitrogen 37 mg/dl (8-23); Chloride 90 mmol/L (96-108); Glomerular Filtration Rate 8
[2019-12-08] MEDS ORDERED: ONDANSETRON 4 MG/2 ML VIAL IV ONE ×2 (06:36→08:25)
[2019-12-08] MEDS ORDERED: hydrALAZINE 20 MG/ML VIAL IV ONE ×2 (06:36→09:30)
--- NOTE | 2019-12-08 08:32 | Internal Med History&Physical ---
Medical - H&P: [facility] Patient information: Note initiated : 12/08/19 at 8:27 am Service Date, if different from initiated Date: [] Patient: Shyann Ludwig a 64 y/o F admitted on for Shortness of breath. Chief Complaint: [] Chief complaint: Short of breath History of present illness: Ms. Ludwig is a 64 year old F with history of end-stage renal disease on hemodialysis presents with worsening shortness of breath for the last few days. Patient symptoms started around 2 weeks prior to presentation with increasing Raynaud's URI symptoms nausea diarrhea. She denies sick contacts. However due to her symptoms she missing her usual medications for blood pressure, she says that she has been throwing up and nauseous and was not able to take her medications. Over the next few days her blood pressures continue right and she became increasingly short of breath. She however has not missed her dialysis. Today she was unable to catch her breath and subsequently presents to the ER Initial work-up was consistent with hypertensive crisis with systolics at 230s. Flash pulmonary edema on chest imaging. Nephrology was consulted for emergent dialysis while patient was started on nicardipine drip. She is tachypneic at 40 and hypoxic. Subsequently hospitalist service was consulted. At the time evaluation patient is very labored unable to talk in full sentences. She was able to endorse history as above. She denies fever, shaking chills, diarrhea, rash or joint pain but endorses to URI/flulike symptoms progressing to nausea and diarrhea which has limited her ability to take p.o. diet and medications. 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) Tobacco abuse (Chronic) Depression (Chronic) Opioid dependence (Chronic) Upper GI bleed (Chronic) Aspiration pneumonia (Chronic) Hyperphosphatemia (Chronic) Hyperkalemia (Chronic) Volume overload (Chronic) Metabolic acidosis (Chronic) Posterior reversible encephalopathy syndrome (Chronic) History of seizures (Chronic 09/2018) Anemia in chronic kidney disease (CKD) (Chronic) End stage renal disease on dialysis (Chronic) Migraines (Chronic) Renal disease (Chronic) Chronic GERD (Chronic) COPD (chronic obstructive pulmonary disease) (Chronic) Chronic pain (Chronic) Hemodialysis status (Chronic) N&V (nausea and vomiting) (Chronic) Arthritis (Chronic) HIV (human immunodeficiency virus infection) (Chronic 2000) HTN (hypertension) (Chronic) Past Surgical History (Last Reviewed 07/06/19 @ 11:16 by Karly Chun CMA) History of gastric bypass (Chronic) History of hysterectomy (Chronic ~1991) History of peritoneal dialysis (Chronic) Status post biopsy of kidney (Chronic ~2012) Status post cystourethroscopy with dilation of urethral stricture (Chronic ~06/01/19) Family History Mother Heart disease Breast cancer, Onset Age: 62 Arthritis High blood pressure Migraines Thyroid disease Father Stomach cancer Heart disease Arthritis High blood pressure Heart attack Unknown Bruising Sister Arthritis Thyroid disease Brother Arthritis Opiate addiction Grandmother Dementia Daughter Migraines Family/Other Opiate addiction Other Family history of breast cancer Family history- stomach cancer Social History Uses E cigarettes Denies alcohol use Smokes marijuana Uses walker to ambulate Lives with sister Medical - H&P: Meds Home Medications Medication Instructions Recorded Confirmed Type amlodipine 10 mg tablet 10 mg PO BID 04/17/19 12/08/19 History Amitriptyline [Elavil] 50 mg PO HS 07/10/19 12/08/19 History Calcium Acetate [Phoslo] 2,001 mg PO DAILYP PRN 07/10/19 12/08/19 History Carvedilol [Coreg] 25 mg PO BID 07/10/19 12/08/19 History Ondansetron [Zofran ODT] 4 mg SL Q6HP PRN 07/10/19 12/08/19 History cloNIDine TTS 2 [Catapres Tts 2] 1 patch TD WEEKLY #4 patch 07/12/19 12/08/19 Rx clonidine HCl 0.2 mg tablet 0.2 mg PO TID tab 08/22/19 12/08/19 History dicyclomine 10 mg capsule 10 mg PO DAILYP PRN cap 08/22/19 12/08/19 History duloxetine 30 mg capsule,delayed 90 mg PO DAILY cap 08/22/19 12/08/19 History release famotidine 40 mg tablet 40 mg PO BID 08/22/19 12/08/19 History furosemide 80 mg tablet 80 mg PO QDAY PRN #30 tab 08/22/19 12/08/19 Rx ipratropium bromide 17 1 puff INHALATION BID g 08/22/19 12/08/19 History mcg/actuation HFA aerosol inhaler lisinopril 40 mg tablet 40 mg PO HS 08/22/19 12/08/19 History loperamide 2 mg capsule 2 mg PO Q2-4HP PRN 08/22/19 12/08/19 History levetiracetam 250 mg tablet 500 mg PO BID #360 tab 10/04/19 12/08/19 Rx Cyclobenzaprine HCl 10 mg PO TIDP PRN 11/12/19 12/08/19 History oxyCODONE HCL [Roxicodone] 20 mg PO Q6-8HP PRN 11/12/19 12/08/19 History tiZANidine [Zanaflex] 4 mg PO TID 11/13/19 12/08/19 History Calcium Acetate [Phoslo] 2,001 mg PO TIDCC 11/14/19 12/08/19 History Acetaminophen [Tylenol] 500 mg PO Q4HP PRN tab 11/17/19 12/08/19 Rx dolutegravir 50 mg-rilpivirine 25 1 tab PO DAILY #90 tab 11/21/19 12/08/19 Rx mg tablet tenofovir disoproxil fumarate 300 300 mg PO WEEKLY #14 tab 11/21/19 12/08/19 Rx mg tablet Allergies Allergy/AdvReac Type Severity Reaction Status Date / Time dihydroergotamine AdvReac Mild Nausea Verified 11/21/19 14:13 ketorolac [From Toradol] AdvReac Mild Itching Verified 11/21/19 14:13 Medical - H&P: Exam - Constitutional Vitals: Temp Pulse Resp BP Pulse Ox 98.0 F 95 H 19 207/96 92 12/08/19 04:18 12/08/19 07:45 12/08/19 07:31 12/08/19 07:31 12/08/19 07:45 Exam: Alert but very anxious Labored breathing at 40-minute Head normocephalic Oral cavity dry No ear nose discharge Neck lymphadenopathy with JVD noted S1-S2 tachycardia, ESM grade 1 irregular Bilateral late inspiratory crackles/diminished breath sounds bases Right anterior chest dialysis catheter Abdomen soft nontender Lower extremity minimal edema with no cyanosis clubbing or joint swelling Skin no suspicious lesion psych anxious Neuro nonfocal Medical - H&P: Reslt - Labs CBC & Chem 7: 12/08/19 04:45 12/08/19 04:45 Labs: Short CBC 12/08/19 Range/Units 04:45 WBC 7.7 (4.50-11.00) K/mcL Hgb 10.6 L (11.2-15.7) g/dL Hct 33.2 L (34.1-44.9) % Plt Count 149 (140-440) K/mcL BMP 12/08/19 04:45 Sodium 131 L Potassium 5.0 Chloride 90 L Carbon Dioxide 22 BUN 37 H Creatinine 5.1 H* Glucose 91 Calcium 8.5 L Liver Function 12/08/19 Range/Units 04:45 Total Bilirubin 0.4 (0.0-1.0) mg/dL AST 19 (0-37) U/l ALT 16 (0-40) U/l Alkaline Phosphatase 115 (39-117) U/L Albumin 4.1 (3.2-5.2) gm/dL Medical - H&P: A/P (1) Acute decompensated heart failure Current visit: Yes Status: Acute * Acute decompensated heart failure-with pulmonary edema, end-stage renal disease patient will undergo hemodialysis nephrology consulted * Hypertensive crisis with endorgan failure(acute heart failure)-systolics over 230. Start aggressive antihypertensive treatment on nicardipine drip. Restart home medication chronic Coreg/amlodipine/lisinopril/clonidine. Emergent volume removal with hemodialysis. * Acute hypoxic respiratory failure secondary to flash pulmonary edema. Labored breathing and impending respiratory compromise. Start noninvasive ventilation for work of breathing * ESRD on HD per nephrology. * Chronic anemia secondary to ESRD managed by nephrology * History of HIV-continue ramification clinic tenofovir year * History of COPD-continue supplemental oxygen/bronchodilators * Chronic pain continue oxycodone * History of seizure continue Keppra * Anxiety depression restart home dose Cymbalta/amitriptyline * Prophylaxis heparin Plan * Patient critically ill in the setting of pulmonaryedema/acute heart failure/hypoxic respiratory failure mandating ICU admit. * Nephrology consult for emergent hemodialysis * Nicardipine drip * Noninvasive mechanical ventilation per pulmonary edema and increased work of breathing * Primary condition management home meds * Inpatient hospitalization, anticipate minimum 2 midnight hospitalization Time spent in excess of 70 minutes on history physical and additional 35 minutes critical care time spent management of acute heart failure/hypoxic respiratory failure management on noninvasive ventilation/hypertensive crisis management on antihypertensive drip
[2019-12-08] MEDS ORDERED: niCARdipine 25 MG in 0.9 % SODIUM CHLORIDE 240 ML IV ONE ×2 (09:33→13:30)
[2019-12-08] MEDS ORDERED: BISACODYL 10 MG SUPP.RECT PR PRN (10:10)
[2019-12-08] MEDS ORDERED: POLYETHYLENE GLYCOL 3350 17 GM PACKET PO PRN (10:10)
[2019-12-08] MEDS: THIAMINE 100 MG TABLET PO SCH (12:24)
[2019-12-08] MEDS: MULTIVIT,THER IRON,CA,FA & MIN 1 TABLET PO SCH (12:24)
[2019-12-08] MEDS: DOCUSATE SODIUM 100 MG CAPSULE PO SCH ×3 (12:24→20:33)
--- NOTE | 2019-12-08 12:29 | Internal Med Progress Note ---
Medical - PN: Subj Patient information: Note initiated : 12/08/19 at 12:24 pm Service Date, if different from initiated Date: [] Patient: Shyann Ludwig a 64 y/o F admitted on 12/08/19 for Shortness of breath. Chief Complaint: [] Interval history: Ms. Ludwig is a 64 year old F with history of end-stage renal disease on hemodialysis presents with worsening shortness of breath for the last few days. Patient symptoms started around 2 weeks prior to presentation with increasing Raynaud's URI symptoms nausea diarrhea. She denies sick contacts. However due to her symptoms she missing her usual medications for blood pressure, she says that she has been throwing up and nauseous and was not able to take her medications. Over the next few days her blood pressures continue right and she became increasingly short of breath. She however has not missed her dialysis. Today she was unable to catch her breath and subsequently presents to the ER Initial work-up was consistent with hypertensive crisis with systolics at 230s. Flash pulmonary edema on chest imaging. Nephrology was consulted for emergent dialysis while patient was started on nicardipine drip. She is tachypneic at 40 and hypoxic. Subsequently hospitalist service was consulted. At the time evaluation patient is very labored unable to talk in full sentences. She was able to endorse history as above. She denies fever, shaking chills, diarrhea, rash or joint pain but endorses to URI/flulike symptoms progressing to nausea and diarrhea which has limited her ability to take p.o. diet and medications. She denies photophobia, headache, chest pain 12/09 - Constitutional Vitals: Vital Signs Temp Pulse Resp BP Pulse Ox 98.4 F 88 19 154/77 93 12/08/19 12:01 12/08/19 12:17 12/08/19 12:17 12/08/19 12:01 12/08/19 12:17 Period Temp Pulse Resp BP Sys/Hanson Pulse Ox Last 24 Hr 98 F-98.4 F 71-126 14-44 154-251/77-136 89-100 Intake and Output 12/07/19 12/08/19 12/08/19 21:59 05:59 13:59 Intake Total 0 Balance 0 Weight 51.71 kg 51.71 kg Patient Weight 02/22/20 05:59 Weight 51.71 kg Intake & Output: Intake & Output 12/07/19 12/08/19 12/08/19 21:59 05:59 13:59 Intake Total 0 Balance 0 Weight 51.71 kg 51.71 kg Intake: IV 0 Cardene 25 MG In Sodium 0 Chloride 0.9% 240 ml @ 5 MG/HR 50 mls/hr IV ONCE ONE Rx#: [id number] Exam: General: Alert, Awake, No acute Distress Eyes/N/T: EOMI, , Head/Neck: neck supple, CV: RRR, 1/6 SM, Pulm: bibase rales mild, no wheezing Abd: soft, nontender, +BS x4 Ext: no clubbing/cyanosis/edema Neuro: Alert, no focal deficits, moves all extremities, Skin: warm/dry Medical - PN: Obj Da - Labs CBC & Chem 7: 12/08/19 04:45 12/08/19 04:45 Labs: Abnormal Lab Results 12/08/19 12/08/19 12/08/19 04:45 04:45 04:45 RBC 3.35 L Hgb 10.6 L Hct 33.2 L RDW 15.4 H Lymph % (Auto) 15.3 L Lymph # (Auto) 1.17 L Sodium 131 L Chloride 90 L Anion Gap 19.0 H BUN 37 H Creatinine 5.1 H* Calcium 8.5 L NT-Pro-B Natriuret Pep > 41446.0 H Meds: Medications Acetaminophen (Tylenol) 650 mg PO Q4-6HP PRN; Protocol PRN Reason: Per Pain Protocol/Fever > 101 Bisacodyl (Dulcolax) 10 mg NH Q2-3DAYS PRN PRN Reason: Constipation Docusate Sodium (Colace) 100 mg PO BID MARGE Heparin Sodium (Porcine) (Heparin) 5,000 unit SQ Q12 MARGE Nicardipine HCl 25 mg/ Sodium (Chloride) 250 mls @ 50 mls/hr IV ONCE ONE; Protocol Stop: 12/08/19 14:32 Last Titration: 12/08/19 09:58 Dose: 0 mg/hr, 0 mls/hr Documented by: Ceftriaxone Sodium 2 gm/ (Dextrose) 50 mls @ 100 mls/hr IV Q24H MARGE; Protocol Acetaminophen (Ofirmev) 650 mg in 65 mls @ 130 mls/hr IV Q6HP PRN; Protocol PRN Reason: Per Pain Protocol/Fever > 101 Iron Carb/Multivit/Hood/Folic Acid (Multivitamin W/Minerals) 1 tab PO DAILY MARGE Melatonin (Melatonin 3mg Tablet) 3 mg PO HSP PRN PRN Reason: Insomnia Ondansetron HCl (Zofran) 4 mg IV Q4-6HP PRN; Protocol PRN Reason: Nausea And Vomiting Polyethylene Glycol (Miralax) 17 gm PO DAILYP PRN PRN Reason: Constipation Senna/Docusate Sodium (Senna Plus Tablet) 1 tab PO HS MARGE Sodium Chloride (Saline Flush) 10 ml IV Q8 MARGE Thiamine HCl (Vitamin B1) 100 mg PO DAILY MARGE Medical - PN: A/P - Time Spent With Patient Total time spent is greater than 50% in coordination of care (as documented) at patient's floor/unit and/or counseling patient: - Narrative A/P Narrative: A: *Hypertensive emergency (h/o HTN): missed home medications *Acute decompensated Heart failure w/Pulmonary edema: 2/2 above *Acute hypoxic respiratory failure: 2/2 above *ESRD: Follows with Dr. Pineda *Anemia, chronic: *hyponatremia, chronic: *HIV: *COPD (has not been on @home): *Chronic pain: *History of seizure related to PRES: *Depression/anxiety: P: -cardene gtt -Dr. Pineda for emergent HD, -electrolytes and diuretics per Nephro -Bipap wean off, O2 supp prn and home IH's - -cont home BP meds with prn clonidine and IV hydralazine, defer HTN mgmnt to Nephrology -cont home HIV meds and pain meds -cont home keppra - -ppx: heparin Medical - PN: Qual - VTE Deep Vein Thrombosis/Pulmonary Embolism Present on Admission: No
[2019-12-08] MEDS ORDERED: LOPERAMIDE 2 MG CAPSULE PO PRN (12:35)
[2019-12-08] MEDS ORDERED: CALCIUM ACETATE 667 MG CAPSULE PO PRN (12:35)
[2019-12-08] MEDS ORDERED: FUROSEMIDE 80 MG TABLET PO PRN (12:35)
[2019-12-08] MEDS ORDERED: CYCLOBENZAPRINE 10 MG TABLET PO PRN (12:35)
[2019-12-08] MEDS ORDERED: IPRATROPIUM/ALBUTEROL 3 ML AMPUL.NEB NEB PRN (12:36)
[2019-12-08] MEDS: cloNIDine TTS 2 1 PATCH PATCH TD SCH ×2 (13:37→14:05)
[2019-12-08] MEDS ORDERED: hydrALAZINE 20 MG/ML VIAL IV PRN (13:46)
[2019-12-08] MEDS: cefTRIAXone 2 GM in DEXTROSE 5% IN WATER 50 ML IV SCH (14:02)
[2019-12-08] MEDS: oxyCODONE HCL 5 MG TABLET PO PRN ×2 (14:05→18:50)
[2019-12-08] MEDS: 0.9 % SODIUM CHLORIDE 10 ML SYRINGE IV SCH ×2 (14:05→20:35)
[2019-12-08] MEDS: HEPARIN 5,000 UNIT/ML VIAL SQ SCH ×3 (14:09→20:34)
[2019-12-08] MEDS: tiZANidine 4 MG TABLET PO SCH ×3 (17:11→20:35)
[2019-12-08] MEDS: cloNIDine HCL 0.1 MG TABLET PO SCH ×3 (17:11→20:33)
[2019-12-08] MEDS ORDERED: METOPROLOL TARTRATE 5 MG/5 ML VIAL IV PRN (17:21)
[2019-12-08] MEDS ORDERED: METOPROLOL TARTRATE 5 MG/5 ML VIAL IV ONE (17:23)
[2019-12-08] MEDS: CARVEDILOL 12.5 MG TABLET PO SCH (17:23)
[2019-12-08] MEDS: levETIRAcetam 500 MG TABLET PO SCH ×2 (18:50→20:34)
[2019-12-08] MEDS: SENNOSIDES/DOCUSATE SODIUM 1 TAB TABLET PO SCH ×2 (18:51→20:35)
[2019-12-08] MEDS: LISINOPRIL 20 MG TABLET PO SCH ×2 (18:51→20:35)
[2019-12-08] MEDS: AMITRIPTYLINE 25 MG TABLET PO SCH ×2 (18:51→20:33)
[2019-12-08] MEDS: amLODIPine 10 MG TABLET PO SCH ×2 (18:52→20:34)
[2019-12-08] MEDS: CALCIUM ACETATE 667 MG CAPSULE PO SCH (20:30)
[2019-12-08] MEDS: FAMOTIDINE 20 MG TABLET PO SCH (20:34)
--- NOTE | 2019-12-08 22:14 | Consultation ---
DATE OF CONSULTATION: 12/08/2019 REFERRING PHYSICIAN: Dr. Feliz Joseph REASON FOR HOSPITALIZATION: Shortness of breath. HISTORY OF PRESENT ILLNESS: Ms. Ludwig is a 64-year-old female with past medical history significant for end-stage renal disease, on hemodialysis. She dialyzes on Mondays, Wednesdays, and Fridays. She has been cutting her dialysis treatments. She is noncompliant with this as well as fluid intake. She has had hospitalization in the last few weeks with multiple readmissions because of the volume excess and the noncompliance despite extensive education. Every time she cut her dialysis treatment, she gets educated about the volume intake as well as salt intake. She presented to the emergency room with progressive shortness of breath. She is scheduled to be there for dialysis this afternoon. In the emergency room, she was also found to be hypertensive. She was also nauseated. She received a few medications for blood pressure including hydralazine and labetalol, but the blood pressure did not improve much. Chest x-ray showed bilateral infiltrates suggestive of volume overload. For this reason, she is hospitalized. PAST MEDICAL HISTORY: Significant for: 1. History of long-term opioid use. 2. History of a stomach ulcer, chronic. 3. Osteoporosis. 4. History of renal stones. 5. End-stage renal disease, on hemodialysis. 6. 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 7. History of chronic tobacco use. 8. Depression. 9. Opiate dependence. 10. History of upper GI bleed. 11. She has posterior reversible encephalopathy syndrome. 12. History of seizures, for which she used to be on Keppra. 13. Chronic obstructive pulmonary disease. 14. HIV. 15. Hypertension. PAST SURGICAL HISTORY: Significant for: 1. Gastric bypass. 2. Hysterectomy. 3. She was on peritoneal dialysis in the past. 4. History of kidney biopsy. 5. History of cystourethroscopy with dilatation of the ureteral stricture. FAMILY HISTORY: Her mother because of heart disease and breast cancer, also had high blood pressure. Father of stomach cancer and heart disease. She has a sister with arthritis and mother with arthritis. Grandmother had dementia. SOCIAL HISTORY: She uses E-cigarettes and denies any alcohol use. Smokes marijuana. She uses a walker sometimes. Lives with her sister. MEDICATIONS ON ADMISSION: 1. She is on amlodipine 10 mg twice daily. 2. Amitriptyline 50 mg at night. 3. PhosLo 2000 mg with meals. 4. Coreg 25 mg twice daily. 5. Clonidine patch #2 once weekly. 6. Clonidine 0.2 mg p.o. t.i.d. 7. Duloxetine 30 mg once daily. 8. Lisinopril 40 mg at night. 9. Keppra 500 mg twice daily. 10. Dolutegravir 50 mg/rilpivirine 25 mg tablet 1 tablet daily. 11. Tenofovir 300 mg once daily. ALLERGIES: SHE IS ALLERGIC TO DIHYDROERGOTAMINE AND KETOROLAC. PHYSICAL EXAMINATION: GENERAL: She is alert, oriented x3. She is currently on dialysis. VITAL SIGNS: Blood pressures have been 140 to 160 systolic with diastolic in the 60 to 80s. Pulse rates have been 90 to 110. HEENT: NC/AT. Pupils are reactive to light. External auditory canal appears normal. Oral cavity appears normal. Normal mucosa. NECK: Supple. She has about 10 cm of jugular venous distention. No lymphadenopathy. No thyromegaly. LUNGS: Decreased air entry bilaterally. Rales heard in both bases. She has diminished breath sounds. CARDIAC: S1, S2 heard. No S3 or S4. She has 3/6 systolic murmur. ABDOMEN: Soft, nontender. No organomegaly. Positive bowel sounds. No mass, no rebound. EXTREMITIES: Did not show any evidence of edema. Difficult to palpate a dorsalis pedis and posterior tibials. LABORATORY DATA: White count is 7.7 with hemoglobin of 10.6 and a platelet count of 149. Sodium 131, potassium 5.0, chloride of 90, CO2 22, BUN of 37, creatinine of 5.1, calcium 8.5. IMAGING DATA: Chest x-ray showed diffuse interstitial infiltrates, worse than before. There was also an evidence of interstitial edema pattern. ASSESSMENT AND PLAN: 1. Shortness of breath related to volume overload. She shortens her dialysis treatment lately and has been noncompliant with the fluids. Despite several educations, she has continued to drink fluids heavily. She will have hemodialysis today. We will again dialyze her tomorrow to take additional fluid off and see how she does. 2. Hypertension related to volume excess. We will correct with fluid removal. 3. Electrolytes look okay. 4. Anemia. Multiple other problems, management per hospitalist. KEE:eric Job ID: [id number] Doc ID: [id number] Giancarlo Pereira MD
[2019-12-08] MEDS: IPRATROPIUM BROMIDE 1 PUFF INHALER INH SCH (23:09)
--- NOTE | 2019-12-08 23:58 | Emergency Department Note ---
ED Note Addendum Note Addendum: Dr. Joseph briefly discussed this patient with me at checkout. She had already been admitted but her blood pressure was elevated. Dr. Araujo was contacted as he had already wrote admission orders the patient was still in the ER awaiting transport-we briefly discussed management and nicardipine drip was ordered
[2019-12-09] MEDS: oxyCODONE HCL 5 MG TABLET PO PRN ×4 (01:54→20:50)
[2019-12-09] MEDS: 0.9 % SODIUM CHLORIDE 10 ML SYRINGE IV SCH ×3 (04:56→20:52)
--- NOTE | 2019-12-09 08:03 | Internal Med Progress Note ---
Medical - PN: Subj Patient information: Note initiated : 12/09/19 at 7:59 am Service Date, if different from initiated Date: [] Patient: Shyann Ludwig a 64 y/o F admitted on 12/08/19 for Shortness of breath. Chief Complaint: [] Interval history: Ms. Ludwig is a 64 year old F with history of end-stage renal disease on hemodialysis presents with worsening shortness of breath for the last few days. Patient symptoms started around 2 weeks prior to presentation with increasing Raynaud's URI symptoms nausea diarrhea. She denies sick contacts. However due to her symptoms she missing her usual medications for blood pressure, she says that she has been throwing up and nauseous and was not able to take her m edications. Over the next few days her blood pressures continue right and she became increasingly short of breath. She however has not missed her dialysis. Today she was unable to catch her breath and subsequently presents to the ER Initial work-up was consistent with hypertensive crisis with systolics at 230s. Flash pulmonary edema on chest imaging. Nephrology was consulted for emergent dialysis while patient was started on nicardipine drip. She is tachypneic at 40 and hypoxic. Subsequently hospitalist service was consulted. At the time evaluation patient is very labored unable to talk in full sentences. She was able to endorse history as above. She denies fever, shaking chills, diarrhea, rash or joint pain but endorses to URI/flulike symptoms progressing to nausea and diarrhea which has limited her ability to take p.o. diet and medications. She denies photophobia, headache, chest pain / Poor sleep last night. She has some muscle cramping which is common for her. With a headache. Occasional cough of some mild yellow sputum. On nasal cannula With good oxygen saturations. Overall feeling improved. Does complain of dysuria. Review of Systems: denies headache/fever/chills/nausea/vomiting/chest or abdominal pain/diarrhea. Otherwise see above. - Constitutional Vitals: Vital Signs Temp Pulse Resp BP Pulse Ox 98.1 F 74 16 106/69 98 12/09/19 05:54 12/09/19 05:54 12/09/19 05:54 12/09/19 05:54 12/09/19 04:17 Period Temp Pulse Resp BP Sys/Hanson Pulse Ox Last 24 Hr 97.6 F-98.8 F 65-170 8-44 80-241/54-136 89-100 Intake and Output 12/08/19 12/09/19 12/09/19 21:59 05:59 13:59 Intake Total 663 240 Output Total 4800 0 Balance -4137 240 Weight 45.813 kg Intake & Output: Intake & Output 12/08/19 12/09/19 12/09/19 21:59 05:59 13:59 Intake Total 663 240 Output Total 4800 0 Balance -4137 240 Weight 45.813 kg Intake: IV 263 Rocephin 2 gm In Dextrose 5% in 28 Water 50 ml @ 100 mls/hr IV Q24H [facility] Rx#:[id number] Cardene 25 MG In Sodium 235 Chloride 0.9% 240 ml @ 5 MG/HR 50 mls/hr IV ONCE ONE Rx#: [id number] Oral 400 240 Output: Void Amount 0 Hemodialysis UF 4800 Exam: General: Alert, Awake, No acute Distress Eyes/N/T: EOMI, , Head/Neck: neck supple, CV: RRR, 1/6 SM, Pulm: diminished right base, left clear, no wheezing Abd: soft, nontender, +BS x4 Ext: no clubbing/cyanosis/edema Neuro: Alert, no focal deficits, moves all extremities, Skin: warm/dry Medical - PN: Obj Da - Labs CBC & Chem 7: 12/09/19 05:12 12/09/19 05:12 Labs: Abnormal Lab Results 12/08/19 12/08/19 12/08/19 04:45 04:45 04:45 RBC 3.35 L Hgb 10.6 L Hct 33.2 L RDW 15.4 H Lymph % (Auto) 15.3 L Lymph # (Auto) 1.17 L Sodium 131 L Chloride 90 L Anion Gap 19.0 H BUN 37 H Creatinine 5.1 H* Calcium 8.5 L NT-Pro-B Natriuret Pep > 73999.0 H Meds: Medications Acetaminophen (Tylenol) 650 mg PO Q4-6HP PRN; Protocol PRN Reason: Per Pain Protocol/Fever > 101 Acetaminophen (Tylenol) 500 mg PO Q4HP PRN; Protocol PRN Reason: Per Pain Protocol/Fever > 101 Albuterol/Ipratropium (Duoneb) 3 ml NEB Q6HP PRN PRN Reason: Shortness Of Breath Amitriptyline HCl (Elavil) 50 mg PO HS [facility] Last Admin: 12/08/19 20:33 Dose: Not Given Documented by: Amlodipine Besylate (Norvasc) 10 mg PO BID [facility] Last Admin: 12/08/19 20:34 Dose: Not Given Documented by: Bisacodyl (Dulcolax) 10 mg [place] Q2-3DAYS PRN PRN Reason: Constipation Calcium Acetate (Phoslo) 2,001 mg PO DAILYP PRN PRN Reason: SNACKS Calcium Acetate (Phoslo) 2,001 mg PO TIDCC [facility] Last Admin: 12/08/19 20:30 Dose: Not Given Documented by: [facility] Last Admin: 12/08/19 17:23 Dose: 25 mg Documented by: Clonidine HCl (Catapres) 0.2 mg PO TID [facility] Last Admin: 12/08/19 20:33 Dose: Not Given Documented by: Clonidine HCl (Catapres Tts 2) 1 patch TD Q7D [facility] Last Admin: 12/08/19 14:05 Dose: 1 patch Documented by: Cyclobenzaprine HCl (Flexeril) 10 mg PO TIDP PRN PRN Reason: Muscle Spasm Dicyclomine HCl (Dicyclomine) 10 mg PO DAILYP PRN PRN Reason: Stomach distress Docusate Sodium (Colace) 100 mg PO BID [facility] Last Admin: 12/08/19 20:33 Dose: Not Given Documented by: Duloxetine HCl (Cymbalta) 90 mg PO DAILY [facility] Famotidine (Pepcid) 40 mg PO BID [facility] Last Admin: 12/08/19 20:34 Dose: 40 mg Documented by: Furosemide (Lasix) 80 mg PO QDAY PRN PRN Reason: edema Heparin Sodium (Porcine) (Heparin) 5,000 unit SQ Q12 [facility] Last Admin: 12/08/19 20:34 Dose: Not Given Documented by: Hydralazine HCl (Apresoline) 0 mg IV Q2HP PRN PRN Reason: Hypertension Ceftriaxone Sodium 2 gm/ (Dextrose) 50 mls @ 100 mls/hr IV Q24H [facility]; Protocol Last Infusion: 12/08/19 14:35 Dose: 0 mls/hr Documented by: Acetaminophen (Ofirmev) 650 mg in 65 mls @ 130 mls/hr IV Q6HP PRN; Protocol PRN Reason: Per Pain Protocol/Fever > 101 Ipratropium [place] (Atrovent Hfa) 1 puff INH BID [facility] Last Admin: 12/08/19 23:09 Dose: Not Given Documented by: Iron Carb/Multivit/[place]/Folic Acid (Multivitamin W/Minerals) 1 tab PO DAILY [facility] Last Admin: 12/08/19 12:24 Dose: Not Given Documented by: Levetiracetam (Keppra) 500 mg PO BID [facility] Last Admin: 12/08/19 20:34 Dose: Not Given Documented by: Lisinopril (Zestril) 40 mg PO [facility] Last Admin: 12/08/19 20:35 Dose: Not Given Documented by: Loperamide HCl (Imodium) 2 mg PO Q2-4HP PRN PRN Reason: Loose Stool Melatonin (Melatonin 3mg Tablet) 3 mg PO HSP PRN PRN Reason: Insomnia Metoprolol Tartrate (Lopressor) 5 mg IV Q2HP PRN PRN Reason: Tachyarrhythmias HR>110 Morphine Sulfate (Morphine) 1 - 4 mg IV Q3HP PRN; Protocol PRN Reason: Per Pain Protocol Last Admin: 12/09/19 07:09 Dose: 4 mg Documented by: Ondansetron HCl (Zofran) 4 mg IV Q4-6HP PRN; Protocol PRN Reason: Nausea And Vomiting Ondansetron HCl (Zofran Odt) 4 mg SL Q6HP PRN PRN Reason: Nausea Oxycodone HCl (Roxicodone) 20 mg PO Q6-8HP PRN; Protocol PRN Reason: Pain Last Admin: 12/09/19 01:54 Dose: 20 mg Documented by: Dolutegravir/Rilpivirine [Juluca] 50/25 Mg Tab 1 dose PO [facility] Tenofovir Disoproxil (Fumarate 300 Mg Tab) 1 dose PO WEEKLY [facility] Polyethylene Glycol (Miralax) 17 gm PO DAILYP PRN PRN Reason: Constipation Senna/Docusate Sodium (Senna Plus Tablet) 1 tab PO [facility] Last Admin: 12/08/19 20:35 Dose: Not Given Documented by: Sodium Chloride (Saline Flush) 10 ml IV Q8 [facility] Last Admin: 12/09/19 04:56 Dose: 10 ml Documented by: Thiamine HCl (Vitamin B1) 100 mg PO DAILY [facility] Last Admin: 12/08/19 12:24 Dose: Not Given Documented by: Tizanidine HCl (Zanaflex) 4 mg PO TID [facility] Last Admin: 12/08/19 20:35 Dose: Not Given Documented by: Medical - PN: A/P - Time Spent With Patient Total time spent is greater than 50% in coordination of care (as documented) at patient's floor/unit and/or counseling patient: - Narrative A/P Narrative: A: *Hypertensive emergency (h/o HTN): missed home medications -resolved *Acute decompensated Heart failure w/Pulmonary edema: 2/2 above, improved -5L's removed via HD first night *Acute hypoxic respiratory failure: 2/2 above -was on bipap, now on room air *ESRD: Follows with Dr. Pineda *Anemia, chronic: *hyponatremia, chronic: *HIV: *COPD (has not been on @home but she feels she might need it): *Chronic pain: *History of seizure related to PRES: *Depression/anxiety: *Dysuria: pending UA P: -cardene gtt off, cont home BP meds with prn IV hydralazine, defer HTN mgmnt to Nephrology -Dr. Pineda for HD -electrolytes and diuretics per Nephro -O2 supp prn and home IH's -UA, rocephin -cont home HIV meds and pain meds -cont home keppra - -ppx: heparin Medical - PN: Qual - VTE Deep Vein Thrombosis/Pulmonary Embolism Present on Admission: No
[2019-12-09] MEDS: cloNIDine HCL 0.1 MG TABLET PO SCH ×3 (08:29→20:50)
[2019-12-09] MEDS: THIAMINE 100 MG TABLET PO SCH (08:29)
[2019-12-09] MEDS: levETIRAcetam 500 MG TABLET PO SCH ×2 (08:29→20:52)
[2019-12-09] MEDS: tiZANidine 4 MG TABLET PO SCH ×3 (08:29→20:52)
[2019-12-09] MEDS: amLODIPine 10 MG TABLET PO SCH ×2 (08:29→20:50)
[2019-12-09] MEDS: DULoxetine 30 MG CAPSULE PO SCH (08:29)
[2019-12-09] MEDS: HEPARIN 5,000 UNIT/ML VIAL SQ SCH ×2 (08:29→20:51)
[2019-12-09] MEDS: DOCUSATE SODIUM 100 MG CAPSULE PO SCH ×2 (08:29→20:52)
[2019-12-09] MEDS: MULTIVIT,THER IRON,CA,FA & MIN 1 TABLET PO SCH (08:29)
[2019-12-09] MEDS: CALCIUM ACETATE 667 MG CAPSULE PO SCH ×3 (08:29→17:29)
[2019-12-09] MEDS: CARVEDILOL 12.5 MG TABLET PO SCH ×2 (08:29→17:29)
[2019-12-09] MEDS: RILPIVIRINE PO SCH (08:30)
[2019-12-09] MEDS: IPRATROPIUM BROMIDE 1 PUFF INHALER INH SCH ×2 (08:30→22:25)
[2019-12-09] MEDS: DOLUTEGRAVIR PO SCH (08:30)
[2019-12-09] MEDS: FAMOTIDINE 20 MG TABLET PO SCH ×2 (08:45→20:51)
[2019-12-09 09:12] LABS: Hematocrit 33.2 % (34.1-44.9); Hemoglobin 10.4 g/dL (11.2-15.7); Mean Cell Volume 99.4 fL (80.0-100.0); Mean Corpuscular HGB Conc 31.3 g/dL (31.0-36.0); Mean Platelet Volume 9.4 fL (7.4-10.4); Platelet Count 168 K/mcL (140-440); RBC 3.34 M/mcL (3.59-5.38); Red Cell Distribution Width 15.4 % (11.5-14.5); WBC 4.7 K/mcL (4.50-11.00)
[2019-12-09 09:13] LABS: ALT/SGPT 15 U/l (0-40); AST/SGOT 18 U/l (0-37); Albumin 4.1 gm/dL (3.2-5.2); Albumin/Globulin Ratio 1.2 (1.0-2.3); Alkaline Phosphatase 115 U/L (39-117); Bilirubin,Direct < 0.2 mg/dL (0.0-0.3); Bilirubin,Total 0.4 mg/dL (0.0-1.0); Blood Urea Nitrogen 24 mg/dl (8-23); Calcium 8.6 mg/dl (8.6-10.4); Carbon Dioxide 21 mmol/L (22-30); Chloride 90 mmol/L (96-108); Globulin 3.3 gm/dL (2.2-3.7); Glomerular Filtration Rate 10; Glucose 82 mg/dL (70-105); Lactate Dehydrogenase 292 U/L (94-250); Phosphorous 7.1 mg/dL (2.7-4.5); Triglycerides 130 mg/dl (<150); Uric Acid 4.4 mg/dL (2.5-8.0)
[2019-12-09] MEDS ORDERED: diphenhydrAMINE 25 MG CAPSULE PO ONE (10:31)
[2019-12-09 11:21] LABS: Lymphocytes % 35 % (15-49); Monocytes % (Manual) 9 % (1-12); Platelet Estimate NORMAL (NORMAL); RBC Morphology NORMAL (NORMAL); Segmented Neutrophils % 56 % (38-78)
[2019-12-09] MEDS: ONDANSETRON 4 MG ODT TABLET SL PRN ×2 (12:07→20:51)
[2019-12-09] MEDS: cefTRIAXone 2 GM in DEXTROSE 5% IN WATER 50 ML IV SCH (12:09)
[2019-12-09] MEDS ORDERED: CALCIUM ACETATE 667 MG CAPSULE PO PRN (12:23)
[2019-12-09 13:57] LABS: Appearance,Urine CLOUDY; Bacteria,Urine MANY /hpf (0); Bilirubin,Urine NEG (NEG); Color,Urine YELLOW; Culture Indicated,Urine NO; Glucose,Urine (UA) 150 mg/dL (NEG); Ketones,Urine NEG (NEG); Leukocyte Esterase,Urine 250 /uL (NEG); Mucus,Urine MANY /hpf (0); Nitrate,Urine NEG (NEG); Protein,Urine >=500 mg/dL (NEG); Specific Gravity,Urine 1.009 (1.000-1.035); Urine Blood 0.03 mg/dL (<0.03); Urine RBC 2 /hpf (0-1); Urine Squamous Epithelial Cell 66 /hpf (0-4); Urine Transitional Epi Cells < 1 /hpf (0-2); Urine WBC 13 /hpf (0-4); Urobilinogen,Urine NEG (NEG)
[2019-12-09] MEDS: diphenhydrAMINE 25 MG CAPSULE PO PRN (17:41)
[2019-12-09] MEDS: ONDANSETRON 4 MG/2 ML VIAL IV PRN (18:20)
[2019-12-09] MEDS: LISINOPRIL 20 MG TABLET PO SCH (20:50)
[2019-12-09] MEDS: SENNOSIDES/DOCUSATE SODIUM 1 TAB TABLET PO SCH (20:50)
[2019-12-09] MEDS: AMITRIPTYLINE 25 MG TABLET PO SCH (20:50)
[2019-12-09] MEDS: ACETAMINOPHEN 500 MG TABLET PO PRN (20:51)
[2019-12-09] MEDS: MELATONIN 3 MG TABLET PO PRN (20:52)
[2019-12-10] MEDS: oxyCODONE HCL 5 MG TABLET PO PRN ×3 (03:41→19:48)
[2019-12-10] MEDS: 0.9 % SODIUM CHLORIDE 10 ML SYRINGE IV SCH ×5 (03:57→21:14)
[2019-12-10] MEDS: ONDANSETRON 4 MG/2 ML VIAL IV PRN ×2 (03:57→11:48)
[2019-12-10] MEDS: diphenhydrAMINE 25 MG CAPSULE PO PRN ×3 (04:05→22:07)
[2019-12-10 08:09] LABS: Bilirubin,Direct < 0.2 mg/dL (0.0-0.3)
--- NOTE | 2019-12-10 08:22 | Internal Med Progress Note ---
Medical - PN: Subj Patient information: Note initiated : 12/10/19 at 8:18 am Service Date, if different from initiated Date: [] Patient: Shyann Ludwig a 64 y/o F admitted on 12/08/19 for Shortness of breath. Chief Complaint: [] Interval history: Ms. Ludwig is a 64 year old F with history of end-stage renal disease on hemodialysis presents with worsening shortness of breath for the last few days. Patient symptoms started around 2 weeks prior to presentation with increasing Raynaud's URI symptoms nausea diarrhea. She denies sick contacts. However due to her symptoms she missing her usual medications for blood pressure, she says that she has been throwing up and nauseous and was not able to take her m edications. Over the next few days her blood pressures continue right and she became increasingly short of breath. She however has not missed her dialysis. Today she was unable to catch her breath and subsequently presents to the ER Initial work-up was consistent with hypertensive crisis with systolics at 230s. Flash pulmonary edema on chest imaging. Nephrology was consulted for emergent dialysis while patient was started on nicardipine drip. She is tachypneic at 40 and hypoxic. Subsequently hospitalist service was consulted. At the time evaluation patient is very labored unable to talk in full sentences. She was able to endorse history as above. She denies fever, shaking chills, diarrhea, rash or joint pain but endorses to URI/flulike symptoms progressing to nausea and diarrhea which has limited her ability to take p.o. diet and medications. She denies photophobia, headache, chest pain 12/09 Poor sleep last night. She has some muscle cramping which is common for her. With a headache. Occasional cough of some mild yellow sputum. On nasal cannula With good oxygen saturations. Overall feeling improved. Does complain of dysuria. 12/10 Patient with occasional cough she feels like she has phlegm to cough up but having hard time getting up. Some shortness of breath but improved. Feels weak. Has her chronic pain. Chronic diarrhea. headache. Review of Systems: denies fever/chills/nausea/vomiting/chest or abdominal pain. Otherwise see above. - Constitutional Vitals: Vital Signs Temp Pulse Resp BP Pulse Ox 97.0 F 34 L 16 128/88 78 L 12/09/19 20:03 12/10/19 04:01 12/10/19 04:01 12/10/19 04:01 12/10/19 04:01 Period Temp Pulse Resp BP Sys/Hanson Pulse Ox Last 24 Hr 97.0 F-97.5 F 34-90 7-25 96-140/61-99 78-100 Intake and Output 12/09/19 12/10/19 12/10/19 21:59 05:59 13:59 Intake Total 660 220 Output Total 200 Balance 460 220 Weight 47.99 kg Intake & Output: Intake & Output 12/09/19 12/10/19 12/10/19 21:59 05:59 13:59 Intake Total 660 220 Output Total 200 Balance 460 220 Weight 47.99 kg Intake: IV 50 Rocephin 2 gm In Dextrose 5% in 50 Water 50 ml @ 100 mls/hr IV Q24H [facility] Rx#:[id number] Oral 660 170 Output: Emesis 200 Other: Meal Dinner Percent of Meal Consumed 25% Feeding Ability Independent Exam: General: Alert, Awake, No acute Distress Eyes/N/T: EOMI, , Head/Neck: neck supple, CV: RRR, 1/6 SM, Pulm: no wheezing/rhonchi/rales Abd: soft, nontender, +BS x4 Ext: no clubbing/cyanosis/edema Neuro: Alert, no focal deficits, moves all extremities, Skin: warm/dry Medical - PN: Obj Da - Labs CBC & Chem 7: 12/09/19 05:12 12/10/19 05:35 Labs: Abnormal Lab Results 12/09/19 12/09/19 12/09/19 13:08 05:12 05:12 RBC 3.34 L Hgb 10.4 L Hct 33.2 L RDW 15.4 H Lymph % (Auto) Lymph # (Auto) Sodium 132 L Potassium 5.3 H Chloride 90 L Carbon Dioxide 21 L Anion Gap 21.0 H BUN 24 H Creatinine 4.3 H Calcium Phosphorus 7.1 H* Lactate Dehydrogenase 292 H NT-Pro-B Natriuret Pep Urine Protein >=500 A Urine Glucose (UA) 150 A Urine Occult Blood 0.03 A Ur Leukocyte Esterase 250 A Urine RBC 2 H Urine WBC 13 H Ur Squamous Epith Cells 66 H Urine Bacteria Many A Urine Mucus Many A 12/08/19 12/08/19 12/08/19 04:45 04:45 04:45 RBC 3.35 L Hgb 10.6 L Hct 33.2 L RDW 15.4 H Lymph % (Auto) 15.3 L Lymph # (Auto) 1.17 L Sodium 131 L Potassium Chloride 90 L Carbon Dioxide Anion Gap 19.0 H BUN 37 H Creatinine 5.1 H* Calcium 8.5 L Phosphorus Lactate Dehydrogenase NT-Pro-B Natriuret Pep > 61724.0 H Urine Protein Urine Glucose (UA) Urine Occult Blood Ur Leukocyte Esterase Urine RBC Urine WBC Ur Squamous Epith Cells Urine Bacteria Urine Mucus Meds: Medications Acetaminophen (Tylenol) 650 mg PO Q4-6HP PRN; Protocol PRN Reason: Per Pain Protocol/Fever > 101 Acetaminophen (Tylenol) 500 mg PO Q4HP PRN; Protocol PRN Reason: Per Pain Protocol/Fever > 101 Last Admin: 12/09/19 20:51 Dose: 500 mg Documented by: Albuterol/Ipratropium (Duoneb) 3 ml NEB Q6HP PRN PRN Reason: Shortness Of Breath Amitriptyline HCl (Elavil) 50 mg PO HS [facility] Last Admin: 12/09/19 20:50 Dose: 50 mg Documented by: Amlodipine Besylate (Norvasc) 10 mg PO BID [facility] Last Admin: 12/09/19 20:50 Dose: 10 mg Documented by: Bisacodyl (Dulcolax) 10 mg [place] Q2-3DAYS PRN PRN Reason: Constipation Calcium Acetate (Phoslo) 2,668 mg PO TIDCC [facility] Last Admin: 12/09/19 17:29 Dose: 2,668 mg Documented by: Calcium Acetate (Phoslo) 2,668 mg PO DAILYP PRN PRN Reason: SNACKS Carvedilol (Coreg) 25 mg PO BIDCC [facility] Last Admin: 12/09/19 17:29 Dose: 25 mg Documented by: Clonidine HCl (Catapres) 0.2 mg PO TID [facility] Last Admin: 12/09/19 20:50 Dose: 0.2 mg Documented by: Clonidine HCl (Catapres Tts 2) 1 patch TD Q7D [facility] Last Admin: 12/08/19 14:05 Dose: 1 patch Documented by: Cyclobenzaprine HCl (Flexeril) 10 mg PO TIDP PRN PRN Reason: Muscle Spasm Last Admin: 12/09/19 20:52 Dose: 10 mg Documented by: Dicyclomine HCl (Dicyclomine) 10 mg PO DAILYP PRN PRN Reason: Stomach distress Diphenhydramine HCl (Benadryl) 25 mg PO Q6HP PRN PRN Reason: Allergic Symptoms Last Admin: 12/10/19 04:05 Dose: 25 mg Documented by: Docusate Sodium (Colace) 100 mg PO BID [facility] Last Admin: 12/09/19 20:52 Dose: 100 mg Documented by: Duloxetine HCl (Cymbalta) 90 mg PO DAILY [facility] Last Admin: 12/09/19 08:29 Dose: 90 mg Documented by: Famotidine (Pepcid) 40 mg PO BID [facility] Last Admin: 12/09/19 20:51 Dose: 40 mg Documented by: Furosemide (Lasix) 80 mg PO QDAY PRN PRN Reason: edema Heparin Sodium (Porcine) (Heparin) 5,000 unit SQ Q12 [facility] Last Admin: 12/09/19 20:51 Dose: 5,000 unit Documented by: Hydralazine HCl (Apresoline) 0 mg IV Q2HP PRN PRN Reason: Hypertension Ceftriaxone Sodium 2 gm/ (Dextrose) 50 mls @ 100 mls/hr IV Q24H [facility]; Protocol Last Infusion: 12/09/19 22:00 Dose: Infused Documented by: Acetaminophen (Ofirmev) 650 mg in 65 mls @ 130 mls/hr IV Q6HP PRN; Protocol PRN Reason: Per Pain Protocol/Fever > 101 Ipratropium [place] (Atrovent Hfa) 1 puff INH BID [facility] Last Admin: 12/09/19 22:25 Dose: Not Given Documented by: Iron Carb/Multivit/Extension Edger/Folic Acid (Multivitamin W/Minerals) 1 tab PO DAILY [facility] Last Admin: 12/09/19 08:29 Dose: 1 tab Documented by: Levetiracetam (Keppra) 500 mg PO BID [facility] Last Admin: 12/09/19 20:52 Dose: 500 mg Documented by: Lisinopril (Zestril) 40 mg PO HS [facility] Last Admin: 12/09/19 20:50 Dose: 40 mg Documented by: Loperamide HCl (Imodium) 2 mg PO Q2-4HP PRN PRN Reason: Loose Stool Melatonin (Melatonin 3mg Tablet) 3 mg PO HSP PRN PRN Reason: Insomnia Last Admin: 12/09/19 20:52 Dose: 3 mg Documented by: Metoprolol Tartrate (Lopressor) 5 mg IV Q2HP PRN PRN Reason: Tachyarrhythmias HR>110 Morphine Sulfate (Morphine) 1 - 4 mg IV Q3HP PRN; Protocol PRN Reason: Per Pain Protocol Last Admin: 12/10/19 05:20 Dose: 2 mg Documented by: Ondansetron HCl (Zofran) 4 mg IV Q4-6HP PRN; Protocol PRN Reason: Nausea And Vomiting Last Admin: 12/10/19 03:57 Dose: 4 mg Documented by: Ondansetron HCl (Zofran Odt) 4 mg SL Q6HP PRN PRN Reason: Nausea Last Admin: 12/09/19 20:51 Dose: 4 mg Documented by: Oxycodone HCl (Roxicodone) 20 mg PO Q6-8HP PRN; Protocol PRN Reason: Pain Last Admin: 12/10/19 03:41 Dose: 20 mg Documented by: Dolutegravir/Rilpivirine [Juluca] 50/[facility] Mg Tab [facility] Last Admin: 12/09/19 08:30 Dose: Not Given Documented by: Tenofovir Disoproxil (Fumarate 300 Mg Tab) 1 dose PO WEEKLY [facility] Polyethylene Glycol (Miralax) 17 gm PO DAILYP PRN PRN Reason: Constipation Senna/Docusate Sodium (Senna Plus Tablet) 1 tab PO HS [facility] Last Admin: 12/09/19 20:50 Dose: 1 tab Documented by: Sodium Chloride (Saline Flush) 10 ml IV Q8 [facility] Last Admin: 12/10/19 04:53 Dose: 10 ml Documented by: Thiamine HCl (Vitamin B1) 100 mg PO DAILY [facility] Last Admin: 12/09/19 08:29 Dose: 100 mg Documented by: Tizanidine HCl (Zanaflex) 4 mg PO TID [facility] Last Admin: 12/09/19 20:52 Dose: 4 mg Documented by: Medical - PN: A/P - Time Spent With Patient Total time spent is greater than 50% in coordination of care (as documented) at patient's floor/unit and/or counseling patient: - Narrative A/P Narrative: A: *Hypertensive emergency (h/o HTN): missed home medications -resolved, now low-normal range *Acute decompensated Heart failure w/Pulmonary edema: 2/2 above, improved -5L's removed first night via HD -CXR improved *Acute hypoxic respiratory failure: 2/2 above -was on bipap initially, 2-4L NC yesterday, bipap last night, room air this morning *ESRD: Follows with Dr. Pineda *Anemia, chronic: *hyponatremia, chronic: *HIV: *COPD (has not been on @home but she feels she might need it): *Chronic pain: *History of seizure related to PRES: *Depression/anxiety: *UTI: P: -cont home BP meds (decreased ccb/bb minimally) with prn IV hydralazine, defer HTN mgmnt to Nephrology -Dr. Pineda for HD -electrolytes and diuretics per Nephro -O2 supp prn and home IH's -UA, rocephin -cont home HIV meds and pain meds -cont home keppra -f/u with pulmonology for sleep study -ppx: heparin Medical - PN: Qual - VTE Deep Vein Thrombosis/Pulmonary Embolism Present on Admission: No
[2019-12-10 08:27] LABS: ALT/SGPT 14 U/l (0-40); AST/SGOT 18 U/l (0-37); Albumin 4.5 gm/dL (3.2-5.2); Albumin/Globulin Ratio 1.2 (1.0-2.3); Alkaline Phosphatase 132 U/L (39-117); Bilirubin,Total 0.4 mg/dL (0.0-1.0); Blood Urea Nitrogen 45 mg/dl (8-23); Calcium 9.1 mg/dl (8.6-10.4); Carbon Dioxide 16 mmol/L (22-30); Chloride 84 mmol/L (96-108); Globulin 3.8 gm/dL (2.2-3.7); Glomerular Filtration Rate 7; Glucose 77 mg/dL (70-105); Lactate Dehydrogenase 325 U/L (94-250); Phosphorous 11.3 mg/dL (2.7-4.5); Triglycerides 193 mg/dl (<150); Uric Acid 6.4 mg/dL (2.5-8.0)
[2019-12-10] MEDS: DOLUTEGRAVIR PO SCH (09:18)
[2019-12-10] MEDS: RILPIVIRINE PO SCH (09:18)
[2019-12-10] MEDS: IPRATROPIUM BROMIDE 1 PUFF INHALER INH SCH ×2 (09:33→23:11)
[2019-12-10] MEDS: CALCIUM ACETATE 667 MG CAPSULE PO SCH ×3 (09:48→18:10)
[2019-12-10] MEDS: cefTRIAXone 2 GM in DEXTROSE 5% IN WATER 50 ML IV SCH (09:48)
[2019-12-10] MEDS: cloNIDine HCL 0.1 MG TABLET PO SCH ×3 (09:48→21:02)
[2019-12-10] MEDS: FAMOTIDINE 20 MG TABLET PO SCH ×2 (09:49→21:03)
[2019-12-10] MEDS: MULTIVIT,THER IRON,CA,FA & MIN 1 TABLET PO SCH (09:49)
[2019-12-10] MEDS: HEPARIN 5,000 UNIT/ML VIAL SQ SCH ×2 (09:49→21:06)
[2019-12-10] MEDS: DOCUSATE SODIUM 100 MG CAPSULE PO SCH ×2 (09:49→21:02)
[2019-12-10] MEDS: THIAMINE 100 MG TABLET PO SCH (09:49)
[2019-12-10] MEDS: levETIRAcetam 500 MG TABLET PO SCH ×2 (09:49→21:05)
[2019-12-10] MEDS: DULoxetine 30 MG CAPSULE PO SCH (09:49)
[2019-12-10] MEDS: amLODIPine 5 MG TABLET PO SCH ×2 (09:49→21:04)
[2019-12-10] MEDS: tiZANidine 4 MG TABLET PO SCH ×4 (09:49→21:05)
[2019-12-10] MEDS: CARVEDILOL 12.5 MG TABLET PO SCH ×2 (09:55→18:10)
--- NOTE | 2019-12-10 09:55 | XRay Report ---
CLINICAL INFORMATION:Follow-up abnormal chest x-ray. Dyspnea. TECHNIQUE: AP upright chest x-ray COMPARISON: Previous chest x-rays dated 12/08/2019, 11/15/2019 FINDINGS:No change in position of large right central venous catheter. Persistent elevation of the right hemidiaphragm Bilateral interstitial infiltrates have resolved consistent with resolution of interstitial pulmonary edema. No new parenchymal abnormality. No focal consolidation. IMPRESSION: Interval resolution of bilateral infiltrates Interpreted and Authenticated by: Rene Corcoran 12/10/19
[2019-12-10] MEDS: guaiFENesin 600 MG TAB.SR.12H PO SCH ×3 (10:16→21:13)
[2019-12-10 11:04] LABS: ALT/SGPT 16 U/l (0-40); AST/SGOT 21 U/l (0-37); Albumin/Globulin Ratio 1.3 (1.0-2.3); Alkaline Phosphatase 141 U/L (39-117); Bilirubin,Total 0.5 mg/dL (0.0-1.0); Blood Urea Nitrogen 50 mg/dl (8-23); Calcium 9.2 mg/dl (8.6-10.4); Carbon Dioxide 18 mmol/L (22-30); Glucose 86 mg/dL (70-105)
[2019-12-10 11:14] LABS: Chloride 83 mmol/L (96-108); Glomerular Filtration Rate 6
[2019-12-10] MEDS: ACETAMINOPHEN 325 MG TABLET PO PRN ×2 (12:24→16:58)
[2019-12-10] MEDS: ACETAMINOPHEN 650 MG/65 ML BOTTLE IV PRN (21:01)
[2019-12-10] MEDS: LISINOPRIL 20 MG TABLET PO SCH (21:05)
[2019-12-10] MEDS: MELATONIN 3 MG TABLET PO PRN (21:05)
[2019-12-10] MEDS: AMITRIPTYLINE 25 MG TABLET PO SCH (21:05)
[2019-12-10] MEDS: SENNOSIDES/DOCUSATE SODIUM 1 TAB TABLET PO SCH (21:05)
[2019-12-11] MEDS: DICYCLOMINE 20 MG TABLET PO PRN (05:31)
[2019-12-11] MEDS: 0.9 % SODIUM CHLORIDE 10 ML SYRINGE IV SCH ×3 (05:42→22:00)
[2019-12-11 07:12] LABS: ALT/SGPT 8 U/l (0-40); AST/SGOT 17 U/l (0-37); Albumin 3.7 gm/dL (3.2-5.2); Alkaline Phosphatase 112 U/L (39-117); Bilirubin,Direct < 0.2 mg/dL (0.0-0.3); Bilirubin,Total 0.3 mg/dL (0.0-1.0); Calcium 8.9 mg/dl (8.6-10.4); Carbon Dioxide 18 mmol/L (22-30); Glucose 77 mg/dL (70-105); Lactate Dehydrogenase 247 U/L (94-250); Triglycerides 180 mg/dl (<150); Uric Acid 3.6 mg/dL (2.5-8.0)
[2019-12-11 07:21] LABS: Albumin/Globulin Ratio 1.3 (1.0-2.3); Blood Urea Nitrogen 28 mg/dl (8-23); Chloride 88 mmol/L (96-108); Globulin 2.9 gm/dL (2.2-3.7); Glomerular Filtration Rate 10; Phosphorous 6.5 mg/dL (2.7-4.5)
--- NOTE | 2019-12-11 07:30 | Internal Med Progress Note ---
Medical - PN: Subj Patient information: Note initiated : 12/11/19 at 7:27 am Service Date, if different from initiated Date: [] Patient: Shyann Ludwig a 64 y/o F admitted on 12/08/19 for Shortness of breath. Chief Complaint: [] Interval history: Ms. Ludwig is a 64 year old F with history of end-stage renal disease on hemodialysis presents with worsening shortness of breath for the last few days. Patient symptoms started around 2 weeks prior to presentation with increasing Raynaud's URI symptoms nausea diarrhea. She denies sick contacts. However due to her symptoms she missing her usual medications for blood pressure, she says that she has been throwing up and nauseous and was not able to take her m edications. Over the next few days her blood pressures continue right and she became increasingly short of breath. She however has not missed her dialysis. Today she was unable to catch her breath and subsequently presents to the ER Initial work-up was consistent with hypertensive crisis with systolics at 230s. Flash pulmonary edema on chest imaging. Nephrology was consulted for emergent dialysis while patient was started on nicardipine drip. She is tachypneic at 40 and hypoxic. Subsequently hospitalist service was consulted. At the time evaluation patient is very labored unable to talk in full sentences. She was able to endorse history as above. She denies fever, shaking chills, diarrhea, rash or joint pain but endorses to URI/flulike symptoms progressing to nausea and diarrhea which has limited her ability to take p.o. diet and medications. She denies photophobia, headache, chest pain 12/09 Poor sleep last night. She has some muscle cramping which is common for her. With a headache. Occasional cough of some mild yellow sputum. On nasal cannula With good oxygen saturations. Overall feeling improved. Does complain of dysuria. 12/10 Patient with occasional cough she feels like she has phlegm to cough up but having hard time getting up. Some shortness of breath but improved. Feels weak. Has her chronic pain. Chronic diarrhea. headache. 12/11 Blood pressure dropped last night but maps maintained greater than 65. Defer blood pressure medication adjustment to nephrology. Patient overall feeling well better today. Patient is on room air. Occasional headache. Review of Systems: denies fever/chills/nausea/vomiting/chest or abdominal pain. Otherwise see above. - Constitutional Vitals: Vital Signs Temp Pulse Resp BP Pulse Ox 97.5 F 96 H 20 98/59 100 12/11/19 04:00 12/10/19 17:30 12/11/19 04:00 12/11/19 04:00 12/11/19 04:36 Period Temp Pulse Resp BP Sys/Hanson Pulse Ox Last 24 Hr 97.0 F-98.6 F 73-112 18-20 62-128/45-82 90-100 Intake and Output 12/10/19 12/11/19 12/11/19 21:59 05:59 13:59 Intake Total 120 65 Output Total 0 Balance 120 65 Weight 45.994 kg Intake & Output: Intake & Output 12/10/19 12/11/19 12/11/19 21:59 05:59 13:59 Intake Total 120 65 Output Total 0 Balance 120 65 Weight 45.994 kg Intake: IV 65 Oral 120 Output: Hemodialysis UF 0 Exam: General: Alert, Awake, No acute Distress Eyes/N/T: EOMI, , Head/Neck: neck supple, CV: RRR, 1/6 SM, Pulm: no wheezing/rhonchi/rales Abd: soft, nontender, +BS x4 Ext: no clubbing/cyanosis/edema Neuro: Alert, no focal deficits, moves all extremities, Skin: warm/dry Medical - PN: Obj Da - Labs CBC & Chem 7: 12/09/19 05:12 12/11/19 05:20 Labs: Abnormal Lab Results 12/11/19 12/10/19 12/10/19 05:20 09:50 05:35 RBC Hgb Hct RDW Sodium 125 L 126 L 123 L Potassium 5.2 H 6.4 H* 6.6 H* Chloride 88 L 83 L 84 L Carbon Dioxide 18 L 18 L 16 L Anion Gap 19.0 H 25.0 H 23.0 H BUN 28 H 50 H 45 H Creatinine 4.5 H 6.4 H* 6.1 H* Phosphorus 6.5 H* 11.3 H* Alkaline Phosphatase 141 H 132 H Lactate Dehydrogenase 325 H Total Protein 9.0 H Globulin 4.0 H 3.8 H Triglycerides 180 H 193 H Urine Protein Urine Glucose (UA) Urine Occult Blood Ur Leukocyte Esterase Urine RBC Urine WBC Ur Squamous Epith Cells Urine Bacteria Urine Mucus 12/09/19 12/09/19 12/09/19 13:08 05:12 05:12 RBC 3.34 L Hgb 10.4 L Hct 33.2 L RDW 15.4 H Sodium 132 L Potassium 5.3 H Chloride 90 L Carbon Dioxide 21 L Anion Gap 21.0 H BUN 24 H Creatinine 4.3 H Phosphorus 7.1 H* Alkaline Phosphatase Lactate Dehydrogenase 292 H Total Protein Globulin Triglycerides Urine Protein >=500 A Urine Glucose (UA) 150 A Urine Occult Blood 0.03 A Ur Leukocyte Esterase 250 A Urine RBC 2 H Urine WBC 13 H Ur Squamous Epith Cells 66 H Urine Bacteria Many A Urine Mucus Many A Meds: Medications Acetaminophen (Tylenol) 650 mg PO Q4-6HP PRN; Protocol PRN Reason: Per Pain Protocol/Fever > 101 Last Admin: 12/10/19 16:58 Dose: 650 mg Documented by: Acetaminophen (Tylenol) 500 mg PO Q4HP PRN; Protocol PRN Reason: Per Pain Protocol/Fever > 101 Last Admin: 12/09/19 20:51 Dose: 500 mg Documented by: Albuterol/Ipratropium (Duoneb) 3 ml NEB Q6HP PRN PRN Reason: Shortness Of Breath Amitriptyline HCl (Elavil) 50 mg PO HS [facility] Last Admin: 12/10/19 21:05 Dose: 50 mg Documented by: Amlodipine Besylate (Norvasc) 7.5 mg PO BID [facility] Last Admin: 12/10/19 21:04 Dose: 7.5 mg Documented by: Bisacodyl (Dulcolax) 10 mg DC Q2-3DAYS PRN PRN Reason: Constipation Calcium Acetate (Phoslo) 2,668 mg PO TIDCC [facility] Last Admin: 12/10/19 18:10 Dose: 2,668 mg Documented by: Calcium Acetate (Phoslo) 2,668 mg PO DAILYP PRN PRN Reason: SNACKS Carvedilol (Coreg) 18.75 mg PO BIDCC [facility] Last Admin: 12/10/19 18:10 Dose: 18.75 mg Documented by: Clonidine HCl (Catapres) 0.2 mg PO TID [facility] Last Admin: 12/10/19 21:02 Dose: 0.2 mg Documented by: Clonidine HCl (Catapres Tts 2) 1 patch TD Q7D [facility] Last Admin: 12/08/19 14:05 Dose: 1 patch Documented by: Cyclobenzaprine HCl (Flexeril) 10 mg PO TIDP PRN PRN Reason: Muscle Spasm Last Admin: 12/09/19 20:52 Dose: 10 mg Documented by: Dicyclomine HCl (Dicyclomine) 10 mg PO DAILYP PRN PRN Reason: Stomach distress Last Admin: 12/11/19 05:31 Dose: 10 mg Documented by: Diphenhydramine HCl (Benadryl) 25 mg PO Q6HP PRN PRN Reason: Allergic Symptoms Last Admin: 12/10/19 22:07 Dose: 25 mg Documented by: Docusate Sodium (Colace) 100 mg PO BID [facility] Last Admin: 12/10/19 21:02 Dose: 100 mg Documented by: Duloxetine HCl (Cymbalta) 90 mg PO DAILY [facility] Last Admin: 12/10/19 09:49 Dose: 90 mg Documented by: Famotidine (Pepcid) 40 mg PO BID [facility] Last Admin: 12/10/19 21:03 Dose: 40 mg Documented by: Furosemide (Lasix) 80 mg PO QDAY PRN PRN Reason: edema Guaifenesin (Mucinex) 600 mg PO BID [facility] Last Admin: 12/10/19 21:13 Dose: 600 mg Documented by: Heparin Sodium (Porcine) (Heparin) 5,000 unit SQ Q12 [facility] Last Admin: 12/10/19 21:06 Dose: 5,000 unit Documented by: Hydralazine HCl (Apresoline) 0 mg IV Q2HP PRN PRN Reason: Hypertension Ceftriaxone Sodium 2 gm/ (Dextrose) 50 mls @ 100 mls/hr IV Q24H [facility]; Protocol Last Infusion: 12/10/19 10:45 Dose: Infused Documented by: Acetaminophen (Ofirmev) 650 mg in 65 mls @ 130 mls/hr IV Q6HP PRN; Protocol PRN Reason: Per Pain Protocol/Fever > 101 Last Infusion: 12/10/19 22:07 Dose: Infused Documented by: Norepinephrine Bitartrate 16 (mg/ Sodium Chloride) 250 mls @ 9.375 mls/hr IV Q24H [facility]; Protocol Sodium Chloride (Sodium Chloride 0.9%) 250 mls @ 20 mls/hr IV .[id number] [facility] Ipratropium [place] (Atrovent Hfa) 1 puff INH BID [facility] Last Admin: 12/10/19 23:11 Dose: Not Given Documented by: Iron Carb/Multivit/Ida/Folic Acid (Multivitamin W/Minerals) 1 tab PO DAILY [facility] Last Admin: 12/10/19 09:49 Dose: 1 tab Documented by: Levetiracetam (Keppra) 500 mg PO BID [facility] Last Admin: 12/10/19 21:05 Dose: 500 mg Documented by: Lisinopril (Zestril) 40 mg PO HS [facility] Last Admin: 12/10/19 21:05 Dose: 40 mg Documented by: Loperamide HCl (Imodium) 2 mg PO Q2-4HP PRN PRN Reason: Loose Stool Melatonin (Melatonin 3mg Tablet) 3 mg PO HSP PRN PRN Reason: Insomnia Last Admin: 12/10/19 21:05 Dose: 3 mg Documented by: Metoprolol Tartrate (Lopressor) 5 mg IV Q2HP PRN PRN Reason: Tachyarrhythmias HR>110 Morphine Sulfate (Morphine) 1 - 4 mg IV Q3HP PRN; Protocol PRN Reason: Per Pain Protocol Last Admin: 12/10/19 22:26 Dose: 2 mg Documented by: Ondansetron HCl (Zofran) 4 mg IV Q4-6HP PRN; Protocol PRN Reason: Nausea And Vomiting Last Admin: 12/10/19 11:48 Dose: 4 mg Documented by: Ondansetron HCl (Zofran Odt) 4 mg SL Q6HP PRN PRN Reason: Nausea Last Admin: 12/09/19 20:51 Dose: 4 mg Documented by: Oxycodone HCl (Roxicodone) 20 mg PO Q6-8HP PRN; Protocol PRN Reason: Pain Last Admin: 12/10/19 19:48 Dose: 20 mg Documented by: Dolutegravir/Rilpivirine [Juluca] 50/[facility] Mg Tab [facility] Last Admin: 12/10/19 09:18 Dose: Not Given Documented by: Tenofovir Disoproxil (Fumarate 300 Mg Tab) 1 dose PO WEEKLY [facility] Polyethylene Glycol (Miralax) 17 gm PO DAILYP PRN PRN Reason: Constipation Senna/Docusate Sodium (Senna Plus Tablet) 1 tab PO HS [facility] Last Admin: 12/10/19 21:05 Dose: Not Given Documented by: Sodium Chloride (Saline Flush) 10 ml IV Q8 [facility] Last Admin: 12/11/19 05:42 Dose: 10 ml Documented by: Thiamine HCl (Vitamin B1) 100 mg PO DAILY [facility] Last Admin: 12/10/19 09:49 Dose: 100 mg Documented by: Tizanidine HCl (Zanaflex) 4 mg PO TID [facility] Last Admin: 12/10/19 21:05 Dose: 4 mg Documented by: Medical - PN: A/P - Time Spent With Patient Total time spent is greater than 50% in coordination of care (as documented) at patient's floor/unit and/or counseling patient: - Narrative A/P Narrative: A: *Hypertensive emergency (h/o HTN): missed home medications -resolved, now low-normal range, hypotensive last night *Acute decompensated Heart failure w/Pulmonary edema: 2/2 above, improved -5L's removed first night via HD -CXR improved *Acute hypoxic respiratory failure: 2/2 above -was on bipap initially, then 2-4L NC, no bipap last night, room air this morning *ESRD: Follows with Dr. Pineda *Anemia, chronic: *hyponatremia, chronic: *hyperkalemia and other electrolyte derangements: *HIV: *COPD (has not been on @home but she feels she might need it): *Chronic pain: *History of seizure related to PRES: *Depression/anxiety: *UTI: P: -cont home BP meds (decreased ccb/bb) with prn IV hydralazine, defer HTN mgmnt to Nephrology -Dr. Pineda for HD -electrolytes and diuretics per Nephro -O2 supp prn and home IH's -UA, rocephin -cont home HIV meds and pain meds -cont home keppra -f/u with pulmonology for sleep study -ppx: heparin Medical - PN: Qual - VTE Deep Vein Thrombosis/Pulmonary Embolism Present on Admission: No
[2019-12-11] MEDS: NOREPINEPHRINE BITARTRATE 16 MG in 0.9 % SODIUM CHLORIDE 234 ML IV SCH (07:42)
[2019-12-11] MEDS: 0.9 % SODIUM CHLORIDE 250 ML IV SCH ×2 (07:42→19:29)
[2019-12-11] MEDS: DOLUTEGRAVIR PO SCH (07:57)
[2019-12-11] MEDS: IPRATROPIUM BROMIDE 1 PUFF INHALER INH SCH ×2 (07:57→21:00)
[2019-12-11] MEDS: RILPIVIRINE PO SCH (07:57)
[2019-12-11] MEDS: HEPARIN 5,000 UNIT/ML VIAL SQ SCH ×2 (08:15→19:47)
[2019-12-11] MEDS: DOCUSATE SODIUM 100 MG CAPSULE PO SCH ×2 (08:15→19:49)
[2019-12-11] MEDS: CARVEDILOL 12.5 MG TABLET PO SCH ×2 (08:15→18:03)
[2019-12-11] MEDS: oxyCODONE HCL 5 MG TABLET PO PRN ×2 (08:16→16:24)
[2019-12-11] MEDS: levETIRAcetam 500 MG TABLET PO SCH ×2 (08:17→19:47)
[2019-12-11] MEDS: THIAMINE 100 MG TABLET PO SCH (08:17)
[2019-12-11] MEDS: FAMOTIDINE 20 MG TABLET PO SCH ×2 (08:17→19:49)
[2019-12-11] MEDS: DULoxetine 30 MG CAPSULE PO SCH (08:17)
[2019-12-11] MEDS: amLODIPine 5 MG TABLET PO SCH (08:17)
[2019-12-11] MEDS: CALCIUM ACETATE 667 MG CAPSULE PO SCH ×3 (08:17→18:03)
[2019-12-11] MEDS: tiZANidine 4 MG TABLET PO SCH ×3 (08:17→19:49)
[2019-12-11] MEDS: MULTIVIT,THER IRON,CA,FA & MIN 1 TABLET PO SCH (08:18)
[2019-12-11] MEDS: guaiFENesin 600 MG TAB.SR.12H PO SCH ×2 (08:18→19:49)
[2019-12-11] MEDS: cefTRIAXone 2 GM in DEXTROSE 5% IN WATER 50 ML IV SCH (08:21)
[2019-12-11] MEDS: ONDANSETRON 4 MG/2 ML VIAL IV PRN ×2 (08:47→14:00)
--- NOTE | 2019-12-11 09:10 | Discharge Summary ---
Medical - DS: Prov Patient information: Note initiated : 12/11/19 at 9:08 am Service Date, if different from initiated Date: [] Patient: Shyann Ludwig 64 y/o F admitted on 12/08/19 for Shortness of breath. Chief Complaint: [] Date of admission: 12/08/19 09:59 Discharge date: 12/12/19 Primary care physician: Rene Belcher DO Consults: 12/08/19 Consult to Physician [CONS] Stat Comment: Consulting Provider: Rick Pereira Reason For Exam: Physician to Consult Consult to Physician [CONS] Stat Comment: Consulting Provider: Giancarlo Pineda Reason For Exam: Physician to Consult Medical - DS: Meds - Discharge Medications Prescriptions: amLODIPine BESYLATE [Amlodipine Besylate] 5 mg PO DAILY #1 tab Carvedilol [Coreg] 25 mg PO BIDCC #1 tab oxyCODONE HCL [Roxicodone] 20 mg PO Q6-8HP PRN #20 tablet PRN Reason: Pain Active and Home Medications: Home Medications amlodipine 10 mg tablet 10 mg PO BID 04/17/19 [History Confirmed 12/08/19 Last Taken 12/06/19 20:00] Amitriptyline [Elavil] 50 mg PO HS 07/10/19 [History Confirmed 12/08/19 Last Taken 12/06/19 20:00] Calcium Acetate [Phoslo] 2,001 mg PO DAILYP PRN 07/10/19 [History Confirmed 12/08/19 Last Taken 12/06/19 20:00] Carvedilol [Coreg] 25 mg PO BID 07/10/19 [History Confirmed 12/08/19 Last Taken 12/06/19 17:00] Ondansetron [Zofran ODT] 4 mg SL Q6HP PRN 07/10/19 [History Confirmed 12/08/19 Last Taken 12/07/19 08:00] cloNIDine TTS 2 [Catapres Tts 2] 1 patch TD WEEKLY #4 patch 07/12/19 [Rx Confirmed 12/08/19 Last Taken 11/10/19 0.2 mg] clonidine HCl 0.2 mg tablet 0.2 mg PO TID tab 08/22/19 [History Confirmed 12/08/19 Last Taken 12/06/19 20:00] dicyclomine 10 mg capsule 10 mg PO DAILYP PRN cap 08/22/19 [History Confirmed 12/08/19 Last Taken 12/06/19 20:00] duloxetine 30 mg capsule,delayed release 90 mg PO DAILY cap 08/22/19 [History Confirmed 12/08/19 Last Taken 12/06/19 17:00] famotidine 40 mg tablet 40 mg PO BID 08/22/19 [History Confirmed 12/08/19 Last Taken 12/06/19 17:00] furosemide 80 mg tablet 80 mg PO QDAY PRN #30 tab 08/22/19 [Rx Confirmed 12/08/19 Last Taken 12/06/19 08:00] ipratropium bromide 17 mcg/actuation HFA aerosol inhaler 1 puff INHALATION BID g 08/22/19 [History Confirmed 12/08/19 Last Taken 12/07/19 20:00] lisinopril 40 mg tablet 40 mg PO HS 08/22/19 [History Confirmed 12/08/19 Last Taken 12/06/19 17:00] loperamide 2 mg capsule 2 mg PO Q2-4HP PRN 08/22/19 [History Confirmed 12/08/19 Last Taken 12/06/19 20:00] levetiracetam 250 mg tablet 500 mg PO BID #360 tab 10/04/19 [Rx Confirmed 12/08/19 Last Taken 12/06/19 20:00] Cyclobenzaprine HCl 10 mg PO TIDP PRN 11/12/19 [History Confirmed 12/08/19 Last Taken 12/03/19 08:00] oxyCODONE HCL [Roxicodone] 20 mg PO Q6-8HP PRN 11/12/19 [History Confirmed 12/08/19 Last Taken 12/07/19 20:00] tiZANidine [Zanaflex] 4 mg PO TID 11/13/19 [History Confirmed 12/08/19 Last Taken 12/06/19 20:00] Calcium Acetate [Phoslo] 2,668 mg PO TIDCC 11/14/19 [History Confirmed 12/09/19 Last Taken 12/06/19 17:00] Acetaminophen [Tylenol] 500 mg PO Q4HP PRN tab 11/17/19 [Rx Confirmed 12/08/19 Last Taken 12/06/19 08:00] dolutegravir 50 mg-rilpivirine 25 mg tablet 1 tab PO DAILY #90 tab 11/21/19 [Rx Confirmed 12/08/19 Last Taken 12/06/19 17:00] tenofovir disoproxil fumarate 300 mg tablet 300 mg PO WEEKLY #14 tab 11/21/19 [Rx Confirmed 12/08/19 Last Taken 12/03/19 20:00] Medical - DS: Hosp Hospital Course: Ms. Ludwig is a 64 year old F with history of end-stage renal disease on hemodialysis presents with worsening shortness of breath for the last few days. Patient symptoms started around 2 weeks prior to presentation with increasing Raynaud's URI symptoms nausea diarrhea. She denies sick contacts. However due to her symptoms she missing her usual medications for blood pressure, she says that she has been throwing up and nauseous and was not able to take her medications. Over the next few days her blood pressures continue right and she became increasingly short of breath. She however has not missed her dialysis. Today she was unable to catch her breath and subsequently presents to the ER Initial work-up was consistent with hypertensive crisis with systolics at 230s. Flash pulmonary edema on chest imaging. Nephrology was consulted for emergent dialysis while patient was started on nicardipine drip. She is tachypneic at 40 and hypoxic. Subsequently hospitalist service was consulted. At the time evaluation patient is very labored unable to talk in full sentences. She was able to endorse history as above. She denies fever, shaking chills, diarrhea, rash or joint pain but endorses to URI/flulike symptoms progressing to nausea and diarrhea which has limited her ability to take p.o. diet and medications. She denies photophobia, headache, chest pain 12/09 Poor sleep last night. She has some muscle cramping which is common for her. With a headache. Occasional cough of some mild yellow sputum. On nasal cannula With good oxygen saturations. Overall feeling improved. Does complain of dysuria. 12/10 Patient with occasional cough she feels like she has phlegm to cough up but having hard time getting up. Some shortness of breath but improved. Feels weak. Has her chronic pain. Chronic diarrhea. headache. 12/11 Blood pressure dropped last night but maps maintained greater than 65. Defer blood pressure medication adjustment to nephrology. Patient overall feeling well better today. Patient is on room air. Occasional headache. 12/12 Patient doing well on great response dialysis. Patient stable for discharge. Given patient's significant comorbidities and multiple hospitalizations the patient is extremely high risk for readmission A: *Hypertensive emergency (h/o HTN): missed home medications *Acute decompensated Heart failure w/Pulmonary edema: 2/2 above, improved -5L's removed first night via HD -CXR improved *Acute hypoxic respiratory failure: 2/2 above -was on bipap initially, then 2-4L NC, no bipap last night, room air this morning *ESRD: Follows with Dr. Pineda *Anemia, chronic: *hyponatremia, chronic: *hyperkalemia and other electrolyte derangements: *HIV: *COPD (has not been on @home but she feels she might need it): *Chronic pain: *History of seizure related to PRES: *Depression/anxiety: *UTI: Discharge diagnosis: Hypertensive urgency decompensated heart failure hypoxic respiratory failur Secondary discharge diagnosis: End-stage renal disease anemia hyponatremia hyperkalemia HIV COPD chronic pain history of seizures depression anxiety UTI - Time Spent with Patient Total time spent providing and/or coordinating discharge services: Greater than 30 minutes Medical - DS: Exam - Constitutional Vitals: Vital Signs Temp Pulse Resp BP Pulse Ox 12/11/19 08:00 99 F 20 123/93 12/11/19 07:00 112/69 97 12/11/19 06:00 135/85 97 12/11/19 05:00 112/62 98 12/11/19 04:36 100 12/11/19 04:00 97.5 F 20 98/59 95 12/11/19 03:00 97/63 98 12/11/19 02:00 93/62 99 12/11/19 01:00 84/57 97 12/11/19 00:24 86/54 96 12/11/19 00:00 97.0 F 18 75/56 94 12/10/19 23:31 75/54 95 12/10/19 23:06 62/45 94 12/10/19 23:03 66/48 95 12/10/19 23:00 64/49 97 12/10/19 22:00 122/79 95 12/10/19 21:00 122/74 100 12/10/19 20:00 98.1 F 20 128/79 95 12/10/19 19:00 115/77 96 12/10/19 18:30 128/75 94 12/10/19 18:15 108/72 12/10/19 18:00 107/65 97 12/10/19 17:50 98.6 F 12/10/19 17:45 109/65 12/10/19 17:30 96 H 116/72 90 12/10/19 17:15 100 H 100/66 92 12/10/19 17:02 124/77 93 12/10/19 17:00 105 H 93/68 96 12/10/19 16:45 103 H 105/65 12/10/19 16:30 103 H 101/61 12/10/19 16:15 98 H 100/64 12/10/19 16:00 97.9 F 98 H 20 92/53 93 12/10/19 15:45 101 H 101/63 12/10/19 15:30 97.9 F 102 H 124/82 12/10/19 15:15 101 H 93/77 12/10/19 15:00 98 H 83/64 12/10/19 14:45 94 H 81/56 12/10/19 14:30 97.1 F 73 101/59 12/10/19 14:00 97 12/10/19 12:00 97.6 F 20 127/72 97 12/10/19 09:52 94 Intake and Output 12/10/19 12/11/19 12/11/19 21:59 05:59 13:59 Intake Total 120 65 Output Total 0 Balance 120 65 Intake: IV 65 Oral 120 Output: Hemodialysis UF 0 Other: Weight 45.994 kg Medical - DS: Data Labs on day of discharge: Labs from last 24 hours 12/11/19 12/10/19 05:20 09:50 Sodium 125 L 126 L Potassium 5.2 H 6.4 H* Chloride 88 L 83 L Carbon Dioxide 18 L 18 L Anion Gap 19.0 H 25.0 H BUN 28 H 50 H Creatinine 4.5 H 6.4 H* GFR Calculation 10 6 Glucose 77 86 Uric Acid 3.6 Calcium 8.9 9.2 Phosphorus 6.5 H* Magnesium 2.1 Total Bilirubin 0.3 0.5 Direct Bilirubin < 0.2 GGT 18 AST 17 21 ALT 8 16 Alkaline Phosphatase 112 141 H Lactate Dehydrogenase 247 Total Protein 6.6 9.0 H Albumin 3.7 5.0 Globulin 2.9 4.0 H Albumin/Globulin Ratio 1.3 1.3 Triglycerides 180 H Preliminary micro results at discharge 12/09/19 13:08 Urine Culture - Preliminary Urine - Catheterized Medical - DS: A/P - Patient/Caregiver Discharge Instructions Activity: increase activity as tolerated Diet: Renal Additional Instructions: A referral has been sent to Dr. Albright, Pulmonology regarding setting up a sleep test. Prescriptions: amLODIPine BESYLATE [Amlodipine Besylate] 5 mg PO DAILY #1 tab Carvedilol [Coreg] 25 mg PO BIDCC #1 tab - Follow up Plan Follow up with: Rene Belcher DO [Primary Care Provider] - 12/21/19 4:30 pm Brock Albright MD [Physician] - (A referral has been sent, they will contact you to schedule an appointment.) Giancarlo Pineda MD [Physician] - (Continue with your current dialysis schedule) Brendan Monteiro [Physician] - (A referral has been sent, they will contact you to schedule an appointment.) Disposition: Home Health Service Care Plan Goals: This discharge packet is provided to you to help keep you informed about your care. We want to ensure you get everything you need when you go home. You will also be receiving a call from us in a few days to follow up with you and see how you are doing since your discharge. This gives us a chance to listen to any concerns you maybe experiencing since you were discharged or any additional needs you may have, as well as providing us feedback on your care experience. We strive to always provide excellent care and thank you for your feedback and for choosing [facility]. Prognosis: Undetermined Rehab Potential: Fair Overall status at discharge: patient is progressing back to baseline Medical - DS: Qual - VTE Deep Vein Thrombosis/Pulmonary Embolism Present on Admission: No
[2019-12-11] MEDS: cloNIDine HCL 0.1 MG TABLET PO SCH ×3 (12:08→21:00)
--- NOTE | 2019-12-11 13:25 | Nephrology Progress Note ---
Subjective Patient information: Note initiated : 12/11/19 at 1:23 pm Service Date, if different from initiated Date: [] Patient: Shyann Ludwig 64 y/o F admitted on 12/08/19 for Shortness of breath. Chief Complaint: [] She is feeling better. Breathing is better. Objective - Vital Signs Vital signs: Vital Signs Temp Pulse Pulse Resp BP Pulse Ox 12/11/19 12:30 98.1 F 12/11/19 12:00 107/66 12/11/19 11:00 111/72 12/11/19 10:01 129/70 97 12/11/19 09:01 129/98 12/11/19 08:00 99 F 20 123/93 97 12/11/19 07:00 112/69 97 12/11/19 06:00 135/85 97 12/11/19 05:00 112/62 98 12/11/19 04:36 100 12/11/19 04:00 97.5 F 20 98/59 95 12/11/19 03:00 97/63 98 12/11/19 02:00 93/62 99 12/11/19 01:00 84/57 97 12/11/19 00:35 70 92 12/11/19 00:24 86/54 96 12/11/19 00:00 97.0 F 18 75/56 94 12/10/19 23:50 88 L 12/10/19 23:31 75/54 95 12/10/19 23:06 62/45 94 12/10/19 23:03 66/48 95 12/10/19 23:02 100 12/10/19 23:00 64/49 97 12/10/19 22:00 122/79 95 12/10/19 21:00 122/74 100 12/10/19 20:41 98 H 94 12/10/19 20:33 74 L 12/10/19 20:00 98.1 F 20 128/79 95 12/10/19 19:02 95 12/10/19 19:00 115/77 96 12/10/19 18:57 89 L 12/10/19 18:30 128/75 94 12/10/19 18:15 108/72 12/10/19 18:00 107/65 97 12/10/19 17:50 98.6 F 12/10/19 17:45 109/65 12/10/19 17:30 96 H 116/72 90 12/10/19 17:15 100 H 100/66 92 12/10/19 17:02 124/77 93 12/10/19 17:00 105 H 93/68 96 12/10/19 16:45 103 H 105/65 12/10/19 16:30 103 H 101/61 12/10/19 16:15 98 H 100/64 12/10/19 16:00 97.9 F 98 H 20 92/53 93 12/10/19 15:45 101 H 101/63 12/10/19 15:30 97.9 F 102 H 124/82 12/10/19 15:15 101 H 93/77 12/10/19 15:00 98 H 83/64 12/10/19 14:45 94 H 81/56 12/10/19 14:30 97.1 F 73 101/59 12/10/19 14:00 97 Intake and Output 12/10/19 12/11/19 12/11/19 21:59 05:59 13:59 Intake Total 540 265 450 Output Total 0 0 300 Balance 540 265 150 Intake: IV 65 50 Rocephin 2 gm In Dextrose 5% in 50 Water 50 ml @ 100 mls/hr IV Q24H MARGE Rx#:[id number] Oral 540 200 400 Output: Void Amount 0 300 Hemodialysis UF 0 Other: Meal Dinner Breakfast Percent of Meal Consumed 25% 75% Feeding Ability Assist with Tray Set Up Independent # Bowel Movements 0 Weight 101 lb 6.4 oz Intake & Output: Intake & Output 12/10/19 12/11/19 12/11/19 21:59 05:59 13:59 Intake Total 540 265 450 Output Total 0 0 300 Balance 540 265 150 Weight 101 lb 6.4 oz Intake: IV 65 50 Rocephin 2 gm In Dextrose 5% in 50 Water 50 ml @ 100 mls/hr IV Q24H MARGE Rx#:[id number] Oral 540 200 400 Output: Void Amount 0 300 Hemodialysis UF 0 Other: Meal Dinner Breakfast Percent of Meal Consumed 25% 75% Feeding Ability Assist with Tray Set Up Independent # Bowel Movements 0 - General Appearance General appearance: cachectic EENT: ATNC Neck: no JVD Cardiology: diastolic murmur Gastrointestinal: normoactive bowel sounds Integumentary: no rash Neurologic: no focal deficit Musculoskeletal: no deformities - Lab 12/09/19 05:12 12/11/19 05:20 Most recent lab results Calcium 8.9 mg/dl (8.6-10.4) 12/11/19 05:20 Phosphorus 6.5 mg/dL (2.7-4.5) H* 12/11/19 05:20 Magnesium 2.1 mg/dL (1.6-2.5) 12/11/19 05:20 Assessment and Plan (1) End stage renal disease on dialysis Status: Chronic Comment: She has done well with dialysis. Potassium has been high. Venous pressures are high. I have referred her for tunnel cath replacement with Dr. Wynne. I have spoken to him. His office will call her.
[2019-12-11] MEDS: ACETAMINOPHEN 325 MG TABLET PO PRN (16:24)
[2019-12-11] MEDS: ACETAMINOPHEN 650 MG/65 ML BOTTLE IV PRN (19:12)
[2019-12-11] MEDS: AMITRIPTYLINE 25 MG TABLET PO SCH (19:48)
[2019-12-11] MEDS: MELATONIN 3 MG TABLET PO PRN (19:49)
[2019-12-11] MEDS: SENNOSIDES/DOCUSATE SODIUM 1 TAB TABLET PO SCH (19:49)
[2019-12-11] MEDS: diphenhydrAMINE 25 MG CAPSULE PO PRN (19:49)
[2019-12-11] MEDS: LISINOPRIL 20 MG TABLET PO SCH (21:00)
[2019-12-12] MEDS: NOREPINEPHRINE BITARTRATE 16 MG in 0.9 % SODIUM CHLORIDE 234 ML IV SCH (00:30)
[2019-12-12] MEDS: oxyCODONE HCL 5 MG TABLET PO PRN ×2 (04:33→08:07)
[2019-12-12] MEDS: ONDANSETRON 4 MG/2 ML VIAL IV PRN (04:50)
[2019-12-12] MEDS: 0.9 % SODIUM CHLORIDE 10 ML SYRINGE IV SCH (05:59)
[2019-12-12 06:31] LABS: Bilirubin,Direct < 0.2 mg/dL (0.0-0.3)
[2019-12-12 06:32] LABS: ALT/SGPT 11 U/l (0-40); AST/SGOT 16 U/l (0-37); Albumin 3.7 gm/dL (3.2-5.2); Albumin/Globulin Ratio 1.4 (1.0-2.3); Alkaline Phosphatase 106 U/L (39-117); Bilirubin,Total 0.2 mg/dL (0.0-1.0); Blood Urea Nitrogen 9 mg/dl (8-23); Calcium 8.4 mg/dl (8.6-10.4); Carbon Dioxide 26 mmol/L (22-30); Chloride 93 mmol/L (96-108); Globulin 2.7 gm/dL (2.2-3.7); Glomerular Filtration Rate 19; Glucose 96 mg/dL (70-105); Lactate Dehydrogenase 224 U/L (94-250); Phosphorous 4.1 mg/dL (2.7-4.5); Triglycerides 95 mg/dl (<150); Uric Acid 1.9 mg/dL (2.5-8.0)
[2019-12-12] MEDS: 0.9 % SODIUM CHLORIDE 250 ML IV SCH (07:17)
[2019-12-12] MEDS: CALCIUM ACETATE 667 MG CAPSULE PO SCH (08:06)
[2019-12-12] MEDS: amLODIPine 5 MG TABLET PO SCH (08:07)
[2019-12-12] MEDS: tiZANidine 4 MG TABLET PO SCH (08:07)
[2019-12-12] MEDS: THIAMINE 100 MG TABLET PO SCH (08:07)
[2019-12-12] MEDS: CARVEDILOL 12.5 MG TABLET PO SCH (08:07)
[2019-12-12] MEDS: cloNIDine HCL 0.1 MG TABLET PO SCH (08:07)
[2019-12-12] MEDS: RILPIVIRINE PO SCH (08:08)
[2019-12-12] MEDS: DOLUTEGRAVIR PO SCH (08:08)
[2019-12-12] MEDS: DOCUSATE SODIUM 100 MG CAPSULE PO SCH (08:08)
[2019-12-12] MEDS: IPRATROPIUM BROMIDE 1 PUFF INHALER INH SCH (08:08)
[2019-12-12] MEDS: DICYCLOMINE 20 MG TABLET PO PRN (08:46)
[2019-12-12] MEDS: levETIRAcetam 500 MG TABLET PO SCH (08:46)
[2019-12-12] MEDS: MULTIVIT,THER IRON,CA,FA & MIN 1 TABLET PO SCH (08:46)
[2019-12-12] MEDS: DULoxetine 30 MG CAPSULE PO SCH (08:46)
[2019-12-12] MEDS: FAMOTIDINE 20 MG TABLET PO SCH (08:47)
[2019-12-12] MEDS: ONDANSETRON 4 MG ODT TABLET SL PRN (08:56)
--- NOTE | 2019-12-12 09:06 | Nephrology Progress Note ---
Subjective Patient information: Note initiated : 12/12/19 at 9:04 am Service Date, if different from initiated Date: [] Patient: Shyann Ludwig 64 y/o F admitted on 12/08/19 for Shortness of breath. Chief Complaint: [] Has headache. No trouble breathing. Has some nausea this morning. Objective - Vital Signs Vital signs: Vital Signs Temp Pulse Resp BP Pulse Ox 12/12/19 08:11 97.7 F 18 166/92 96 12/12/19 07:01 156/91 12/12/19 06:07 97.7 F 131/73 100 12/12/19 05:01 143/79 100 12/12/19 04:01 119/63 12/12/19 03:01 140/72 100 12/12/19 02:01 125/65 100 12/12/19 01:01 115/59 91 12/12/19 00:22 140/67 93 12/12/19 00:16 109/61 95 12/12/19 00:09 97.5 F 78 109/61 12/12/19 00:01 98.1 F 77 18 101/65 95 12/11/19 23:46 76 94/59 97 12/11/19 23:32 78 98/67 12/11/19 23:31 98/67 98 12/11/19 23:18 97/62 96 12/11/19 23:16 77 97/62 12/11/19 23:01 108/58 96 12/11/19 23:00 76 108/58 12/11/19 22:48 76 112/64 12/11/19 22:46 112/64 94 12/11/19 22:40 75 104/71 12/11/19 22:31 104/71 96 12/11/19 22:18 75 99/62 12/11/19 22:16 99/62 95 12/11/19 22:06 74 97/61 12/11/19 22:01 97/61 96 12/11/19 21:47 72 92/60 95 12/11/19 21:46 86/63 93 12/11/19 21:33 68 96/61 12/11/19 21:31 96/61 93 12/11/19 21:03 60 101/68 12/11/19 21:01 101/68 94 12/11/19 20:49 136/74 12/11/19 20:45 98.2 F 57 L 136/74 12/11/19 20:36 131/84 12/11/19 20:04 98.2 F 20 138/78 95 12/11/19 19:27 141/76 94 12/11/19 19:02 130/107 89 L 12/11/19 18:01 138/81 92 12/11/19 17:00 148/111 12/11/19 16:00 130/74 91 12/11/19 15:58 91 12/11/19 15:37 98.3 F 18 114/60 90 12/11/19 14:00 141/81 97 12/11/19 13:01 119/92 12/11/19 12:30 98.1 F 12/11/19 12:00 107/66 12/11/19 11:00 111/72 12/11/19 10:01 129/70 97 Intake and Output 12/11/19 12/12/19 12/12/19 21:59 05:59 13:59 Intake Total 305 Output Total 30 2500 30 Balance 275 -2500 -30 Intake: IV 65 Oral 240 Output: Void Amount 30 30 Hemodialysis UF 2500 Other: Urine Color Pale Weight 105 lb 9.6 oz Intake & Output: Intake & Output 12/11/19 12/12/19 12/12/19 21:59 05:59 13:59 Intake Total 305 Output Total 30 2500 30 Balance 275 -2500 -30 Weight 105 lb 9.6 oz Intake: IV 65 Oral 240 Output: Void Amount 30 30 Hemodialysis UF 2500 Other: Urine Color Pale - General Appearance General appearance: cachectic EENT: ATNC Neck: no JVD Respiratory: no kyphosis Cardiology: no murmurs Gastrointestinal: normoactive bowel sounds Integumentary: no rash Neurologic: no focal deficit - Lab 12/09/19 05:12 12/12/19 05:12 Most recent lab results Calcium 8.4 mg/dl (8.6-10.4) L 12/12/19 05:12 Phosphorus 4.1 mg/dL (2.7-4.5) 12/12/19 05:12 Magnesium 2.1 mg/dL (1.6-2.5) 12/12/19 05:12 Assessment and Plan (1) End stage renal disease on dialysis Status: Chronic Comment: She has done well with dialysis. Potassium is better. Venous pressures are high. I have referred her for tunnel cath replacement with Dr. Wynne. I have spoken to him. His office will call her. Her labs and volume status has been stable.
[2019-12-12] MEDS: cefTRIAXone 2 GM in DEXTROSE 5% IN WATER 50 ML IV SCH (10:31)
[2019-12-12] MEDS: guaiFENesin 600 MG TAB.SR.12H PO SCH (10:31)
[2019-12-12] MEDS: HEPARIN 5,000 UNIT/ML VIAL SQ SCH (10:31)
[2019-12-12] MEDS: ACETAMINOPHEN 500 MG TABLET PO PRN (10:36)
== END 2019-12-12 11:45 | disposition home health service (06) | DRG 304 ==
LOC: ED 04:17 → ICU 09:59
PROVIDERS: ADMIT Internal Medicine; ATTEND Internal Medicine